=== PATIENT | female | born 2000 | race Caucasian/White ===

== ENCOUNTER 2024-03-12 18:05 | Emergency (ER) | payer OTHER ==
[2024-03-12 18:51] LABS: Specific Gravity 1.024 (1.005-1.030)
[2024-03-12 18:52] LABS: Specific Gravity 1.024 (1.005-1.030); Sqamous Epithelial <5 /HPF (None Seen); Urine Bacteria <20 /HPF (<20); Urine Bilirubin NEGATIVE (Negative); Urine Blood 3+ (Negative); Urine Clarity Extremely Turbid (Clear); Urine Color Dark-Yellow (Yellow); Urine Crystals Unidentified Few /HPF (None Seen); Urine Culture Reflex Order REFLEXED; Urine Glucose NEGATIVE (Negative); Urine Ketones NEGATIVE (Negative); Urine Microscopic Reflex YN ORDER UMIC; Urine Mucus Slight /HPF (None Seen); Urine Nitrite NEGATIVE (Negative); Urine Protein TRACE (Negative); Urine RBC 21-50 /HPF (None Seen); Urine Urobilinogen Normal (Normal); Urine WBC >50 /HPF (<5); Urine WBC Clump Rare /HPF (None Seen); Urine Yeast (Budding) Trace /HPF (None Seen)
--- NOTE | 2024-03-12 20:05 | ER ---
Nurse's Notes [facility] Name: Don Tolentino Age: 23 yrs Sex: Female : 2000 Arrival Date: 03/12/2024 Time: 18:05 Bed DX3 Private MD: Diagnosis: UTI/ Urinary tract infection, site not specified Presentation: 03/12 18:26 Chief complaint: Patient states: BURNING WITH URINATION AND URINARY FREQUENCY ONSET cm10 YESTERDAY. Coronavirus screen: Client denies travel out of the [place] in the last 14 days. Ebola Screen: Patient denies travel to an Ebola-affected area in the 21 days before illness onset. No symptoms or risks identified at this time. Initial Sepsis Screen: Does the patient meet any 2 criteria? No. Patient's initial sepsis screen is negative. Does the patient have a suspected source of infection? No. Patient's initial sepsis screen is negative. Risk Assessment: Do you want to hurt yourself or someone else? Patient reports no desire to harm self or others. Onset of symptoms was March 12, 2024. 18:26 Method Of Arrival: Ambulatory cm10 18:26 Acuity: MALGORZATA 3 cm10 Triage Assessment: 18:27 General: Appears in no apparent distress. uncomfortable, Behavior is calm, cooperative. cm10 Neuro: No deficits noted. Level of Consciousness is awake, alert, obeys commands, Oriented to person, place, time, situation, Appropriate for age. Respiratory: No deficits noted. Airway is patent Respiratory effort is even, unlabored, Respiratory pattern is regular, symmetrical. Historical: - Allergies: 18:27 Tramadol HCl; cm10 - Home Meds: 18:27 None [Active]; cm10 - PMHx: 18:27 None; cm10 - Immunization history:: Adult Immunizations up to date. - Infectious Disease History:: Denies. - Social history:: Smoking status: Reported history of juuling and/or vaping. Screenin:20 [facility] ED Fall Risk Assessment (Adult) History of falling in the last 3 months, ha1 including since admission No falls in past 3 months (0 pts) Confusion or Disorientation No (0 pts) Intoxicated or Sedated No (0 pts) Impaired Gait No (0 pts) Mobility Assist Device Used No (0 pt) Altered Elimination No (0 pt) Score/Fall Risk Level 0 - 2 = Low Risk Oriented to surroundings, Maintained a safe environment, Educated pt \T\ family on fall prevention, incl call for assistance when getting out of bed, Hourly rounding (assess needs \T\ fall precautionary measures) done. Abuse screen: Denies threats or abuse. Denies injuries from another. Nutritional screening: No deficits noted. Tuberculosis screening: No symptoms or risk factors identified. Assessment: 20:20 Reassessment: Patient and/or family updated on plan of care and expected duration. Pain ha1 level reassessed. Patient is alert, oriented x 3, equal unlabored respirations, skin warm/dry/pink. Vital Signs: 18:26 BP 117 / 83; Pulse 75; Resp 16; Temp 97.6; Pulse Ox 100% on R/A; Weight 114.31 kg; cm10 Height 5 ft. 5 in. ; Pain 10/10; 18:26 Body Mass Index 41.93 (114.31 kg, 165.1 cm) cm10 18:26 Pain Scale: Adult cm10 ED Course: 18:09 Patient arrived in ED. mr 18:26 Deysi Young, [facility] kb 18:26 Estevan Casey MD is Attending Physician. kb 18:27 Triage completed. cm10 18:27 Arm band placed on left wrist. Patient placed in waiting room. cm10 19:50 Patient has correct armband on for positive identification. Bed in low position. Call ha1 light in reach. Side rails up X 1. 20:20 No provider procedures requiring assistance completed. Patient did not have IV access ha1 during this emergency room visit. 20:21 Provided Education on: medication administration . ha1 Administered Medications: 19:50 Drug: Amoxicillin-Clavulanate PO 875 mg PO once Route: PO; ha1 20:19 Follow up: Response: No adverse reaction ha1 20:05 Drug: Ketorolac IM 30 mg IM once Route: IM; Site: left deltoid; ha1 20:20 Follow up: Response: No adverse reaction; Marked relief of symptoms ha1 Medication: 20:21 VIS not applicable for this client. ha1 Outcome: 20:05 Discharge ordered by . kb 20:20 Discharged to home ambulatory, ha1 20:20 Condition: stable 20:20 Discharge instructions given to patient, Instructed on discharge instructions, follow up and referral plans. medication usage, Demonstrated understanding of instructions, follow-up care, medications, Prescriptions given X 1, 20:21 Patient left the ED. ha1 Addendum: 03/15/2024 11:04 Addendum: Culture Results: Positive urine culture. No further action required. Bacteria i w sensitive to prescribed antibiotic. Signatures: Deysi Young, CUSTOMER SERVICE SUPERVISOR-C CUSTOMER SERVICE SUPERVISOR-Ckb Brandy Gupta, Reg Reg mr Ely Ortega, RN CELIA Rosa Isela Ferguson RN RN ha1 Aye Max RN RN cm10
--- NOTE | 2024-03-12 20:05 | EDPHYS ---
Physician Documentation [facility] Name: Don Tolentino Age: 23 yrs Sex: Female : 2000 Arrival Date: 03/12/2024 Time: 18:05 Bed DX3 Private MD: ED Physician Estevan Casey HPI: 03/12 18:42 This 23 yrs old Female presents to ER via Ambulatory with complaints of Urinary Problem.kb 18:42 Pt is a 23 year old female who presents for dysuria, urinary frequency, and suprapubic kb pain that started last night. STates she has had several UTIs in the past and this feels similar. Denies fever. . Historical: - Allergies: 18:27 Tramadol HCl; cm10 - Home Meds: 18:27 None [Active]; cm10 - PMHx: 18:27 None; cm10 - Immunization history:: Adult Immunizations up to date. - Infectious Disease History:: Denies. - Social history:: Smoking status: Reported history of juuling and/or vaping. ROS: 18:43 Constitutional: As per HPI kb Exam: 20:04 Constitutional: This is a well developed, well nourished patient who is awake, alert, kb and in no acute distress. Head/Face: Normocephalic, atraumatic. ENT: Moist Mucous membranes Cardiovascular: Regular rate Respiratory: Respirations even and unlabored. No increased work of breathing. Talking in full sentences Skin: Warm, dry with normal turgor. Normal color. MS/ Extremity: Pulses equal, no cyanosis. Neurovascular intact. Full, normal range of motion. Neuro: Awake and alert, GCS 15, oriented to person, place, time, and situation. 20:04 Abdomen/GI: Inspection: abdomen appears normal, Bowel sounds: normal, Palpation: soft, in all quadrants, mild abdominal tenderness, in the suprapubic area, Vital Signs: 18:26 BP 117 / 83; Pulse 75; Resp 16; Temp 97.6; Pulse Ox 100% on R/A; Weight 114.31 kg; cm10 Height 5 ft. 5 in. ; Pain 10/10; 18:26 Body Mass Index 41.93 (114.31 kg, 165.1 cm) cm10 18:26 Pain Scale: Adult cm10 MDM: 18:26 Medical Screening Exam initiated kb 18:43 Data reviewed: vital signs, nurses notes. kb 20:04 Differential diagnosis: UTI, pyelonephritis. Counseling: I had a detailed discussion kb with the patient and/or guardian regarding the historical points, exam findings, and any diagnostic results supporting the discharge/admit diagnosis, lab results, the need for outpatient follow up, a family practitioner, to return to the emergency department if symptoms worsen or persist or if there are any questions or concerns that arise at home. 03/12 18:37 Order name: Urinalysis w/ reflexes; Complete Time: 18:56 cm10 03/12 18:37 Order name: Test, Urine; Complete Time: 18:56 cm10 03/12 18:55 Order name: Urine Culture EDAZ Administered Medications: 19:50 Drug: Amoxicillin-Clavulanate PO 875 mg PO once Route: PO; ha1 20:19 Follow up: Response: No adverse reaction ha1 20:05 Drug: Ketorolac IM 30 mg IM once Route: IM; Site: left deltoid; ha1 20:20 Follow up: Response: No adverse reaction; Marked relief of symptoms ha1 Disposition Summary: 03/12/24 20:05 Discharge Ordered Notes: Location: Home kb Condition: Stable kb Diagnosis - UTI/ Urinary tract infection, site not specified kb Followup: kb - With: Emergency Department - When: As needed - Reason: Worsening of condition Followup: kb - With: Private Physician - When: 2 - 3 days - Reason: Recheck today's complaints, Continuance of care, Re-evaluation by your physician Discharge Instructions: - Discharge Summary Sheet kb - Urinary Tract Infection, Adult, [id number] kb Forms: - Medication Reconciliation Form kb - Antibiotic Education kb - Prescription Opioid Use kb - Patient Portal Instructions kb - Leadership Thank You Letter kb Prescriptions: - Augmentin 875-125 mg Oral Tablet - take 1 tablet ORAL route every 12 hours for 10 days; 20 tablet; Refills: 0, kb Product Selection Permitted Signatures: Dispatcher [employer] Deysi Miranda FNP-C FNP-Ckb Ayala, Heidy, RN RN ha1 Aye Max RN RN cm10
[2024-03-12] MEDS ORDERED: KETOROLAC 30 MG/ML INJ ONE (20:12)
[2024-03-12] MEDS ORDERED: AMOX/K CLAV 875 MG TAB ONE (20:12)
[2024-03-12 21:02] VITALS: BP 117/83; TEMP 97.6; O2SAT 100
== END 2024-03-12 20:21 | disposition home or self-care (01) ==
LOC: ER 18:05
DX: N39.0 Urinary tract infection, site not specified (principal)
CPT/HCPCS: 81001; 81025; 87077; 87086; 87088; 87186; 96372; 99284

== ENCOUNTER 2025-01-16 16:49 | Emergency (ER) | payer OTHER ==
--- OUTSIDE RECORDS SUMMARY | 2025-01-16 16:54 | XMS REPORT | Continuity of Care Document ---
Author Name Unknown Address [address] [place] [address] [facility] [place] Address [address] [place] [address] Care Team Providers Care Psychologist Chief Name Role Phone No, Pcp [facility] Primary Care Physician Unavailab JOSELINE Silva Attending Clinician Unavailable ANAM CONTRERAS Attending Clinician Jer Nye Attending Clinician Unavailable Jesi NEWTON, Dania Attending Clinician [phone] Physician, No Primary or Family Admitting Clinic jessica Unavailable Payers Payer Name Policy Type Policy Number Effective Date Expirati on Date Source [facility] [employer] FOCUS 9 [id number] 2024 00:00:00 Problems Condition Name Condition Details Condition Category Status Onset Date Resolution Date Last Treatment Date Treating Clinician Comments Source Depression , unspecifie d depression type Depression , unspecifie d depression type Disease Active 07-15 00:00: 00 [facility] Allergies, Adverse Reactions, Alerts Allergy Name Allergy Type Status Severity Reaction(s) Onset Date Inactive Date Treating Clinician Comments Source No Known Allergie s DA Active U 07-29 00:00: 00 [facility] No Known Allergie s DA Active U 07-29 00:00: 00 [facility] No Known Allergie s DA Active U 2019-03 00:00: 00 [facility] No Known Allergie s DA Active U 2019-03 00:00: 00 [facility] No Known Allergie s DA Active U 2019-03 0 00:00: 00 [facility] No Known Allergie s DA Active U 2019-03 0 00:00: 00 [facility] No Known Allergie s DA Active U 12-09 00:00: 00 [facility] No Known Allergie s DA Active U 0 12-09 00:00: 00 [facility] No Known Allergie s DA Active U 10-01 00:00: 00 [facility] No Known Allergie s DA Active U 10-01 00:00: 00 [facility] No Known Allergie s DA Active U 2018-03 00:00: 00 [facility] No Known Allergie s DA Active U 2018-03 00:00: 00 [facility] NO KNOWN ALLERGIE S Allergy Active [facility] Social History Social Habit Start Date Stop Date Quantity Comments Source ASSERTION Possible [facility] Sexual orientation [facility] Alcohol intake Unive [facility] Sex 2024-11-07 01:07:16 2024-11-07 01:07:16 Female (finding) [facility] Tobacco use and exposure 2020-03-17 00:00:00 2020-03-17 00:00:00 Never used [facility] Sex assigned at 2000 00:00:00 2000 00:00:00 [facility] Smoking Status Start Date Stop Date Source Never smoker [facility] Medications Ordered Medication Name Filled Medication Name Start Date Stop Date Current Medication? Ordering Clinician Indication Dosage Frequency Signature (SIG) Comments Components Source FEXOFENADIN E 180 mg tablet 10-24 00:00: 00 11-24 04:59 :00 No [id number] 180mg TAKE 1 TABLET BY MOUTH EVERY MORNING FOR 30 DAYS. [facility] escitalopra m oxalate 10 mg tablet 10-03 00:00: 00 Yes [id number] 10mg Take 1 tablet by mouth daily. [facility] fexofenadin e 180 mg tablet 11-16 00:00: 00 10-24 00:00 :00 No TAKE 1 TABLET BY MOUTH EVERY MORNING FOR 30 DAYS. [facility] Vital Signs Vital Name Observation Time Observation Value Comments S ource HEIGHT 2020-03-17 05:00:00 165.1 cm WEIGHT 2020-03-17 05:00:00 113.399 kg HEIGHT 2020-03-14 23:30:00 165.1 cm WEIGHT 2020-03-14 23:30:00 102.059 kg HEIGHT 2020-03-14 23:30:00 165.1 cm WEIGHT 2020-03-14 23:30:00 102.059 kg Plan of Care Planned Activity Planned Date Details Comments Source Future Scheduled Test 2022-03-29 00:00:00 DEPRESSION SCREENING (12+) [code = DEPRESSION SCREENING (12+)] [facility] Future Scheduled Test 2022 00:00:00 Screening for malignant neoplasm of cervix (procedure) [code = 385587157] [facility] Future Scheduled Test 2021-11-27 00:00:00 INFLUENZA VACCINE (#1) [code = INFLUENZA VACCINE (#1)] [facility] Future Scheduled Test 2021 00:00:00 Lipid panel (procedure) [code = 49919455] [facility] Future Scheduled Test 2021-03-17 00:00:00 Tobacco Cessation Counseling and Screening (12+) [code = Tobacco Cessation Counseling and Screening (12+)] [facility] Future Scheduled Test 2020-11-27 00:00:00 INFLUENZA VACCINE (#1) [code = INFLUENZA VACCINE (#1)] [facility] Future Scheduled Test 2020-11-27 00:00:00 INFLUENZA VACCINE (#1) [code = INFLUENZA VACCINE (#1)] [facility] Future Scheduled Test 2020-03-29 00:00:00 DEPRESSION SCREENING (12+) [code = DEPRESSION SCREENING (12+)] [facility] Future Scheduled Test 2020-03-29 00:00:00 DEPRESSION SCREENING (12+) [code = DEPRESSION SCREENING (12+)] [facility] Future Scheduled Test 2020 00:00:00 DTAP/TDAP/TD VACCINES (1 - Tdap) [code = DTAP/TDAP/TD VACCINES (1 - Tdap)] [facility] Future Scheduled Test 2020 00:00:00 DTAP/TDAP/TD VACCINES (1 - Tdap) [code = DTAP/TDAP/TD VACCINES (1 - Tdap)] [facility] Future Scheduled Test 2020 00:00:00 DTAP/TDAP/TD VACCINES (1 - Tdap) [code = DTAP/TDAP/TD VACCINES (1 - Tdap)] [facility] Future Scheduled Test 2019 00:00:00 HEPATITIS C SCREENING [code = HEPATITIS C SCREENING] [facility] Future Scheduled Test 2019 00:00:00 HEPATITIS C SCREENING [code = HEPATITIS C SCREENING] [facility] Future Scheduled Test 2019 00:00:00 HEPATITIS C SCREENING [code = HEPATITIS C SCREENING] [facility] Future Scheduled Test 2013 00:00:00 COVID-19 VACCINE (1) [code = COVID-19 VACCINE (1)] [facility] Future Scheduled Test 2013 00:00:00 COVID-19 VACCINE (1) [code = COVID-19 VACCINE (1)] [facility] Future Scheduled Test 2001 00:00:00 COVID-19 VACCINE (#1) [code = COVID-19 VACCINE (#1)] [facility] Encounters Start Date/Time End Date/Time Encounter Type Admission Type Attending [facility] Care Department Encounter ID Source 2024-09-22 11:00:00 2024-09-22 11:00:00 Outpatient JUNIOR KIRKPATRICKY EDNA PENA [id number] Edna Durbin 2020-07-29 23:29:41 2020-07-29 23:29:41 Inpatient [facility] [id number] [facility] 2020-03-17 04:36:00 2020-03-17 04:36:00 Emergency ER [facility] Emergency [id number] [facility] 2020-03-14 10:33:00 2020-03-16 22:10:37 Inpatient [facility] OVIDIO [id number] [facility] 2020-03-14 22:53:00 2020-03-14 22:53:00 Emergency ER [facility] [address] Emergency [id number] [facility] 2020-02-16 18:40:00 2020-02-20 04:27:28 Inpatient [facility] OVIDIO [id number] [facility] 2020-02-02 14:30:00 2020-02-05 00:03:03 Inpatient [facility] OV[facility]IO [id number] [facility] 2019-12-30 19:52:00 2020-01-04 13:50:53 Inpatient [facility] OVIDIO [id number] [facility] 2019-12-10 15:00:00 2019-12-13 01:26:37 Inpatient [facility] OV[facility]IO [id number] [facility] 2019-10-21 11:52:00 2019-10-23 04:47:26 Inpatient [facility] OV[facility]IO [id number] [facility] 2019-10-02 19:52:00 2019-10-05 07:23:00 Inpatient [facility] OV[facility]IO [id number] [facility] 2019-09-24 18:08:00 2019-09-26 05:43:57 Inpatient [facility] OVIDIO [id number] [facility] 2019-04-05 13:43:00 2019-04-07 01:51:43 Inpatient [facility] OV[facility]IO [id number] [facility] 2019-04-06 11:00:00 2019-04-06 11:00:[address] [facility] [id number] [facility] 2018-11-15 00:00:00 2018-11-15 00:00:00 Telephone [facility] [id number] 225 [id number] 2018-11-15 00:00:00 2018-11-15 00:00:00 Telephone [facility] [id number] 225 [id number] [facility] 2018-11-01 00:00:00 2018-11-01 00:00[facility] [id number] 225 [id number] 2018-11-01 00:00:00 2018-11-01 00:00:00 [facility] [facility] [id number] 225 [id number] [facility] 2018-10-22 00:00:00 2018-10-22 00:00:00 [facility] [id number] 225 [id number] 2018-10-22 00:00:00 2018-10-22 00:00:00 [facility] [id number] 225 [id number] [facility] 2018-10-19 00:00:00 2018-10-19 00:00:00 Telephone [facility] [id number] 225 [id number] 2018-10-19 00:00:00 2018-10-19 00:00:00 Telephone [facility] [id number] 225 [id number] [facility] Results Test Description Test Time Test Comments Results Result Co mments Source UR HCG [id number] 00:53:00* Test Item Value Reference Range Interpretation Comme nts UR HCG QUAL (test code = HCGQLU) NEGATIVE NEG Very dilute urin es with a low specific gravity may notcontain apprenticeship training representative levels of hCG. URINALYSIS [id number] 00:46:00* Test Item Value Reference Range Interpretation Comme nts UA COLOR (test code = COLU) DESCRIPT YELLOW UA APPEARANCE (test code = APPU) DESCRIPT CLEAR UA GLUCOSE DIPSTICK (test code = DGLUU) mg/dL See_Comment [Automated m essage] The system which generated this result transmitted reference range: 0 (NORMAL). The reference range was not used to interpret this result as normal/abnormal. UA BILIRUBIN DIPSTICK (test code = BILU) mg/dL See_Comment [Automated me ssage] The system which generated this result transmitted reference range: (NEG) 0. The reference range was not used to interpret this result as normal/abnormal. UA KETONE DIPSTICK (test code = KETU) mg/dL See_Comment [Automated messa ge] The system which generated this result transmitted reference range: (NEG) 0. The reference range was not used to interpret this result as normal/abnormal. UA SPECIFIC GRAVITY (test code = SGU) SG 1.001-1.035 UA BLOOD DIPSTICK (test code = HORTENSIA) mg/dL See_Comment [Automated [employer]] The system which generated this result transmitted reference range: 0 (NEG). The reference range was not used to interpret this result as normal/abnormal. UA PH DIPSTICK (test code = GEM) pH UNITS 4.6-8.0 UA PROTEIN DIPSTICK (test code = PROU) mg/dL See_Comment [Automated [employer]] The system which generated this result transmitted reference range: <30 (1+). The reference range was not used to interpret this result as normal/abnormal. UA UROBILINIOGEN DIPSTICK (test code = URO) mg/Dl See_Comment [Automated [employer]] The system which generated this result transmitted reference range: <2.0 (1+). The reference range was not used to interpret this result as normal/abnormal. UA NITRITE DIPSTICK (test code = ELA) SCREEN NEG UA LEUKOCYTE ESTERASE DIPSTICK (test code = LEUU) Leuk/mcL See_Comment [Automated [employer]] The system which generated this result transmitted reference range: (NEG) 0. The reference range was not used to interpret this result as normal/abnormal. UA RBC (test code = RBCU) #RBC/HPF 0-3 UR HCG [id number] 00:46:00* Test Item Value Reference Range Interpretation Comme nts UR HCG QUAL (test code = HCGQLU) NEGATIVE NEG Very dilute urin es with a low specific gravity may notcontain apprenticeship training representative levels of hCG. URINALYSIS W/ [id number] 01:54:00* Test Item Value Reference Range Interpretation Comme nts COLOR (BEAKER) (test code = 470) Yellow CLARITY (BEAKER) (test code = 469) Clear SPECIFIC GRAVITY UA (BEAKER) (test code = 468) 1.016 1.001-1.035 PH UA (BEAKER) (test code = 467) 7.0 5.0-8.0 PROTEIN UA (BEAKER) (test co de = 464) Negative Negative GLUCOSE UA (BEAKER) (test co de = 365) Negative Negative KETONES UA (BEAKER) (test co de = 371) Negative Negative BILIRUBIN UA (BEAKER) (test code = 462) Negative Negative BLOOD UA (BEAKER) (test code = 461) Negative Negative NITRITE UA (BEAKER) (test co de = 465) Negative Negative LEUKOCYTE ESTERASE UA (BEAKE R) (test code = 466) Negative Negative UROBILINOGEN UA (BEAKER) (te st code = 463) < mg/dL 0.2-1.0 RBC UA (BEAKER) (test code = 519) 1 /HPF WBC UA (BEAKER) (test code = 520) 2 /HPF MUCUS (BEAKER) (test code = 1574) Rare SQUAMOUS EPITHELIAL (BEAKER) (test code = 516) 1 /HPF SOURCE(BEAKER) (test code = 2795) [employer] Worker ID - [auto][employer] Worker ID - [auto]SARS-COV2/INFLUENZA/RSV [id number] 01:38:00* Test Item Value Reference Range Interpretation Comme nts SARS-COV2/RT-PCR (test code = 4498323) Positive Negative AA INFLUENZA A RT-PCR (test code = 9017429) Negative Negative INFLUENZA B RT-PCR (test code = 5413369) Negative Negative RSV RT-PCR (test code = 5879430) Negative Negative Performance of t [employer] Xpert Xpress SARS-CoV-2/Flu/RSV test has only been established in nasopharyngeal swab specimens. Use of the Xpert Xpress SARS-CoV-2/Flu/RSV test with other specimen types has not been assessed and performance characteristics are unknown. As with any molecular test, mutations within the targeted genetic regions identified by the Xpert Xpress SARS-CoV-2/Flu/RSV test could affect primer and/or probe binding resulting in failure to detect the presence of virus or the virus being detected less predictably.Negative results do not preclude SARS-CoV-2, Influenza A/B, or RSV infection and should not be used as the sole basis for treatment or other patient management decisions. Results from the Xpert Xpress SARS-CoV-2/Flu/RSV test should be correlated with the clinical history, epidemiological data, and other data available to the clinician evaluating the patient. Invalid test results may occur from improper specimen collection; failure to follow the recommended sample collection, handling, and storage procedures; technical error. False negative results may occur if virus is present at levels below the analytical limit of detection (LOD: 131 copies/mL). Viral nucleic acid may persist in vivo, independent of virus viability. Detection of analyte target(s) does not imply that the corresponding virus(es) are infectious or are the causative agents for clinical symptoms. Recent patient exposure to FluMist or other live attenuated influenza vaccines may cause inaccurate positive results.This test has been authorized by FDA under an EUA for use by authorized laboratories. This test is only authorized for the duration of the declaration that circumstances exist justifying the authorization of emergency use of in vitro diagnostic tests for detection and/or diagnosis of COVID-19 under Section 564(b)(1) of the Federal Food, Drug and Cosmetic Act, 21 U.S.C. 360bbb-3(b)(1), unless the authorization is terminated or revoked sooner.Fact Sheet for Healthcare Providers: https://www.[employer]/D InMage Systemsuments/Xpert%20Xpress%2 6IILP-DfF-8-Flu-RSV/302-4 508%20Rev.%20B%20HCP%20Fa ct%20Sheet.pdfFact Sheet for Healthcare Patients: https://www.[employer]/D ocuments/Xpert%20Xpress%2 4NATR-XcJ-8-Flu-RSV/302-4 507%20Rev.%20B%20Patient% 20Fact%20Sheet.pdf MONONUCLEOSIS [id number] 01:35:00* Test Item Value Reference Range Interpretation Comme nts HETEROPHILE ANTIBODIES (BEAK ER) (test code = 621) Negative Negative COMPREHENSIVE METABOLIC [id number] 01:33:00* Test Item Value Reference Range Interpretation Comme nts TOTAL PROTEIN (BEAKER) (test code = 770) 7.7 gm/dL 6.0-8.5 ALBUMIN (BEAKER) (test code = 1145) 4.6 g/dL 3.5-5.0 ALKALINE PHOSPHATASE (BEAKER) (test code = 346) 65 U/L 30-115 BILIRUBIN TOTAL (BEAKER) (test code = 377) 0.4 mg/dL 0.1-1.3 SODIUM (BEAKER) (test code = 381) 138 meq/L 135-148 POTASSIUM (BEAKER) (test code = 379) 3.7 meq/L 3.5-5.5 CHLORIDE (BEAKER) (test code = 382) 104 meq/L 98-106 CO2 (BEAKER) (test code = 355) 23 meq/L 20-31 BLOOD UREA NITROGEN (BEAKER) (test code = 354) 10 mg/dL 10-26 CREATININE (BEAKER) (test code = 358) 0.83 mg/dL 0.50-1.20 GLUCOSE RANDOM (BEAKER) (test code = 652) 97 mg/dL 70-110 CALCIUM (BEAKER) (test code = 697) 9.0 mg/dL 8.5-10.5 AST (SGOT) (BEAKER) (test code = 353) 20 U/L 5-40 ALT (SGPT) (BEAKER) (test code = 347) 29 U/L 6-50 EGFR (BEAKER) (test code = 1092) INSUFFICIENT CLI NICAL DATA TO CALCULATE ESTIMATED GFR. [employer] Worker ID - [id number] ACID, [id number] 01:08:00* Test Item Value Reference Range Interpretation Comme nts LACTATE BLOOD VENOUS (2) (BE VINEET) (test code = 2872) 0.76 mmol/L 0.50-2.20 [employer] Worker ID - [id number] W/PLT COUNT & AUTO [id number] 00:59:00* Test Item Value Reference Range Interpretation Comme nts WHITE BLOOD CELL COUNT (BEAK ER) (test code = 775) 9.6 K/ L 4.0-10.0 RED BLOOD CELL COUNT (BEAKER ) (test code = 761) 4.25 M/ L 4.00-5.00 HEMOGLOBIN (BEAKER) (test co de = 410) 12.6 GM/DL 12.0-15.5 HEMATOCRIT (BEAKER) (test co de = 411) 36.3 % 36.0-46.0 MEAN CORPUSCULAR VOLUME (SOMMER KER) (test code = 753) 85.4 fL 82.0-99.0 MEAN CORPUSCULAR HEMOGLOBIN (BEAKER) (test code = 751) 29.6 pg 27.0-33.0 MEAN CORPUSCULAR HEMOGLOBIN CONC (BEAKER) (test code = 752) 34.7 GM/DL 32.0-36.0 RED CELL DISTRIBUTION WIDTH (BEAKER) (test code = 412) 12.6 % 12.0-15.0 PLATELET COUNT (BEAKER) (autumn t code = 756) 250 K/CU MM 150-430 MEAN PLATELET VOLUME (BEAKER ) (test code = 754) 10.7 fL 6.0-11.5 NUCLEATED RED BLOOD CELLS (BEAKER) (test code = 413) 0 /100 WBC 0-0 NEUTROPHILS RELATIVE PERCENT (BEAKER) (test code = 429) 81 % LYMPHOCYTES RELATIVE PERCENT (BEAKER) (test code = 430) 11 % MONOCYTES RELATIVE PERCENT (BEAKER) (test code = 431) 7 % EOSINOPHILS RELATIVE PERCENT (BEAKER) (test code = 432) 0 % BASOPHILS RELATIVE PERCENT (BEAKER) (test code = 437) 0 % NEUTROPHILS ABSOLUTE COUNT (BEAKER) (test code = 670) 7.78 K/ L 1.80-8.00 LYMPHOCYTES ABSOLUTE COUNT (BEAKER) (test code = 414) 1.06 K/ L 1.48-4.50 L MONOCYTES ABSOLUTE COUNT (BE VINEET) (test code = 415) 0.69 K/ L 0.00-1.30 EOSINOPHILS ABSOLUTE COUNT (BEAKER) (test code = 416) 0.01 K/ L 0.00-0.50 BASOPHILS ABSOLUTE COUNT (BE VINEET) (test code = 417) 0.03 K/ L 0.00-0.20 IMMATURE GRANULOCYTES-RELATI VE PERCENT (BEAKER) (test code = 2801) 0 % 0-0 URINALYSIS [id number] 12:02:00* Test Item Value Reference Range Interpretation Comme nts UA COLOR (test code = COLU) YELLOW DESCRIPT YELLOW UA APPEARANCE (test code = APPU) TURBID (1+)HAZY-CLDY DESCRIPT CLEAR A UA GLUCOSE DIPSTICK (test code = DGLUU) NORMAL (0) mg/dL 0 (NORMAL) UA BILIRUBIN DIPSTICK (test code = BILU) NEGATIVE (0.0) mg/dL (NEG) 0 UA KETONE DIPSTICK (test code = KETU) NEGATIVE (0) mg/dL (NEG) 0 UA SPECIFIC GRAVITY (test code = SGU) 1.037 SG 1.001-1.035 A UA BLOOD DIPSTICK (test code = HORTENSIA) NEGATIVE (0.00) mg/dL 0 (NEG) UA PH DIPSTICK (test code = GEM) 6.0 pH UNITS 4.6-8.0 UA PROTEIN DIPSTICK (test code = PROU) 30 (1+) mg/dL <30 (1+) A UA UROBILINIOGEN DIPSTICK (test code = URO) NORMAL (0) mg/Dl <2.0 (1+) UA NITRITE DIPSTICK (test code = ELA) NEGATIVE (0) SCREEN NEG UA LEUKOCYTE ESTERASE DIPSTICK (test code = LEUU) 25 Leuk/mcL (NEG) 0 A UA WBC (test code = WBCU) 3-5 #WBC/HPF 0-3 UA RBC (test code = RBCU) 0-3 #RBC/HPF 0-3 UA BACTERIA (test code = BACU) TRACE >0 /HPF NONE-FEW UA SQUAMOUS CELLS (test code = SQU) FEW >2 /UL NONE-SQepi UA MUCUS (test code = MUCU) FEW /LPF NONE A UA AMORPHOUS SEDIMENT (test code = AMORU) MODERATE #/mcL NONE-FEW UR HCG [id number] 12:02:00* Test Item Value Reference Range Interpretation Comme nts UR HCG QUAL (test code = HCGQLU) NEGATIVE NEG Very dilute urin es with a low specific gravity may notcontain apprenticeship training representative levels of hCG. URINALYSIS [id number] 12:00:00* Test Item Value Reference Range Interpretation Comme nts UA COLOR (test code = COLU) DESCRIPT YELLOW UA APPEARANCE (test code = APPU) DESCRIPT CLEAR UA GLUCOSE DIPSTICK (test co de = DGLUU) mg/dL 0 (NORMAL) UA BILIRUBIN DIPSTICK (test code = BILU) mg/dL (NEG) 0 UA KETONE DIPSTICK (test cod e = KETU) mg/dL (NEG) 0 UA SPECIFIC GRAVITY (test co de = SGU) SG 1.001-1.035 UA BLOOD DIPSTICK (test code = HORTENSIA) mg/dL 0 (NEG) UA PH DIPSTICK (test code = GEM) pH UNITS 4.6-8.0 UA PROTEIN DIPSTICK (test co de = PROU) mg/dL <30 (1+) UA UROBILINIOGEN DIPSTICK (t est code = URO) mg/Dl <2.0 (1+) UA NITRITE DIPSTICK (test co de = ELA) SCREEN NEG UA LEUKOCYTE ESTERASE DIPSTI CK (test code = LEUU) Leuk/mcL (NEG) 0 UA RBC (test code = RBCU) #RBC/HPF 0-3 UR HCG [id number] 12:00:00* Test Item Value Reference Range Interpretation Comme nts UR HCG QUAL (test code = HCGQLU) NEGATIVE NEG Very dilute urin es with a low specific gravity may notcontain apprenticeship training representative levels of hCG. EMERGENCY ROOM [id number] 11:51:00* Test Item Value Reference Range Interpretation Comme nts DIAGNOSIS (test code = DIAG) SPECIMENS RCVED SPECIMEN RECEIVED EMERGENCY ROOM [id number] 11:50:00* Test Item Value Reference Range Interpretation Comme nts DIAGNOSIS (test code = DIAG) SPECIMENS RCVED SPECIMEN RECEIVED AG STREP GROUP A (THROAT)2020-03-14 11:39:00* Test Item Value Reference Range Interpretation Comme nts AG STREP GROUP A (THROAT) (test code = STREPA) NEG SCREEN NEG STREP ANTIGEN SCREENING:Antigen screening test; suggest confirmation by culture.INTERPRETATION OF STREP ANTIGEN RESULTS:WHEN STREP GROUP A ANTIGEN IS NOT DETECTED, THE NEGATIVERESULT DOES NOT RULE OUT THE PRESENCE OF STREP GROUP A.WHEN STREP GROUP A ANTIGEN IS DETECTED, THE POSITIVE RESULTIS SIGNIFICANT. NEGATIVE RESULTS REFLEX A CULTURE. FORNEGATIVE RESULTS A CULTURE IS IN PROGRESS, RESULT TO FOLLOW. Novel Coronavirus 2019 [id number] 02:07:00* Test Item Value Reference Range Interpretation Comme nts Novel Coronavirus 2019 nCoV (test code = COVID19) Not Detected Not Detected Testing was perf ormed using the Aptima SARS-CoV-2 assay.This nucleic acid amplification test was developed and itsperformance characteristics determined by [facility]. Nucleic acid amplification tests include PCRand TMA. This test has not been FDA cleared or approved.This test has been authorized by FDA under an Emergency UseAuthorization (EUA). This test is only authorized forthe duration of time the declaration that circumstancesexist justifying the authorization of the emergency use ofin vitro diagnostic tests for detection of SARS-CoV-2 virusand/or diagnosis of COVID-19 infection under gfobept988(b)(1) of the Act, 21 U.S.C. 360bbb-3(b) (1), unless theauthorization is terminated or revoked sooner.When diagnostic testing is negative, the possibility of afalse negative result should be considered in the contextof a patient's recent exposures and the presence ofclinical signs and symptoms consistent with COVID-19. Anindividual without symptoms of COVID-19 and who is notshedding SARS-CoV-2 virus would expect to have a negative(not detected) result in this assay.Performed At: [facility] [place], [place] [id number] Jam Shine MD Ph:[phone] URINALYSIS [id number] 16:51:00* Test Item Value Reference Range Interpretation Comme nts UA COLOR (test code = COLU) YELLOW DESCRIPT YELLOW UA APPEARANCE (test code = APPU) CLEAR DESCRIPT CLEAR UA GLUCOSE DIPSTICK (test code = DGLUU) NORMAL (0) mg/dL 0 (NORMAL) UA BILIRUBIN DIPSTICK (test code = BILU) NEGATIVE (0.0) mg/dL (NEG) 0 UA KETONE DIPSTICK (test code = KETU) TRACE mg/dL (NEG) 0 UA SPECIFIC GRAVITY (test code = SGU) 1.036 SG 1.001-1.035 A UA BLOOD DIPSTICK (test code = HORTENSIA) NEGATIVE (0.00) mg/dL 0 (NEG) UA PH DIPSTICK (test code = GEM) 6.5 pH UNITS 4.6-8.0 UA PROTEIN DIPSTICK (test code = PROU) 30 (1+) mg/dL <30 (1+) A UA UROBILINIOGEN DIPSTICK (test code = URO) NORMAL (0) mg/Dl <2.0 (1+) UA NITRITE DIPSTICK (test code = ELA) NEGATIVE (0) SCREEN NEG UA LEUKOCYTE ESTERASE DIPSTICK (test code = LEUU) 75 Leuk/mcL (NEG) 0 A UA WBC (test code = WBCU) 0-3 #WBC/HPF 0-3 UA RBC (test code = RBCU) 0-3 #RBC/HPF 0-3 UA SQUAMOUS CELLS (test code = SQU) FEW >2 /UL NONE-SQepi UA MUCUS (test code = MUCU) RARE /LPF NONE BASIC METABOLIC [id number] 16:19:00* Test Item Value Reference Range Interpretation Comme nts SODIUM (test code = NA) 138.0 mmol/L 133-144 N POTASSIUM (test code = K) 3.7 mmol/L 3.5-5.1 N CHLORIDE (test code = CL) 107 mmol/L 95-105 H CARBON DIOXIDE (test code = CO2) 27 mmol/L 21-32 N ANION GAP (test code = GAP) 4.0 GAP calc 4.0-15.0 N GLUCOSE (test code = GLU) 97 MG/DL 70-110 N BLOOD UREA NITROGEN (test code = BUN) 13 MG/DL 7-18 N CREATININE (test code = CREAT) 0.91 MG/DL 0.55-1.30 N Results may be depressed if patient is takingN-Acetylcyste ine (NAC) and Metamizole (Dipyrone). CALCIUM (test code = CA) 9.5 MG/DL 8.5-10.1 N INDEX HEMOLYSIS (test code = HEMINDEX) 1 NORMAL <10 MG Index/DL 1 NORMAL INDEX ICTERIC (test code = ICTINDEX) 1 NORMAL <2 MG Index/DL 1 NORMAL INDEX LIPEMIA (test code = LIPINDEX) 1 NORMAL <50 MG Index/DL 1 NORMAL HEPATIC FUNCTION [id number] 16:19:00* Test Item Value Reference Range Interpretation Comme nts TOTAL PROTEIN (test code = PROT) 7.6 G/DL 6.4-8.2 N ALBUMIN (test code = ALB) 3.9 G/DL 3.4-5.0 N BILIRUBIN TOTAL (test code = BILT) 0.39 MG/DL 0.00-1.00 N BILIRUBIN DIRECT (test code = BILD) 0.13 MG/DL 0.00-0.30 N BILIRUBIN INDIRECT (test cod e = BILIND) 0.26 MG/DL 0.2-1.3 N SGOT/AST (test code = AST) 26 Unit/L 15-37 N SGPT/ALT (test code = ALT) 43 Unit/L 12-78 N ALKALINE PHOSPHATASE TOTAL ( test code = ALKP) 64 Unit/L 45-117 N [id number] 16:19:00* Test Item Value Reference Range Interpretation Comme nts LIPASE (test code = LIP) 112 Unit/L 114-286 L HCG [id number] 16:19:00* Test Item Value Reference Range Interpretation Comme nts HCG SERUM (test code = HCG) <1 mi-IU/ML 0-3 N INTERPRET B-HCG LEVELS LESS THAN OR EQUAL TO 3 MIU/ML NEG [id number] 16:19:00* Test Item Value Reference Range Interpretation Comme nts TROPONIN-I (test code = TROPI) < 0.015 NG/ML 0.000-0.045 N INTERPRET WITH C AUTION, THIS VALUE EXCEEDS THE LOWER LIMITOF LINEARITY VERIFICATION ESTABLISHED BY THE LABORATORY.An elevated troponin value alone is not sufficient todiagnose a myocardial infarction. Rather, the patient'sclinical presentation (history, physical exam) and ECGshould be used in conjunction with troponin in thediagnostic evaluation of suspected myocardial infarction. Aserial sampling protocol is recommended to facilitate theidentification of temporal changes in troponin levelscharacteristic of [place]. PROTHROMBIN [id number] 16:16:00* Test Item Value Reference Range Interpretation Comme nts PT PATIENT (test code = PTP) 12.8 SECONDS 9.4-12.5 H INTERNATIONAL NORMAL RATIO (test code = INR) 1.12 INR Unit 0.88-1.13 N --- --Therapeutic range for INR is dependent upon the situation.2.0-3.0 Prophylaxis / venous thromboembolism, Treatment of DVT, Acute myocardial infarction stroke prevention, Systemic embolism prevention in fibrillation3.0-4.5 AMI recurrence prevention, Systemic embolism prevention in prosthetic heart 3.0-5.4 AMI mortality reduction THROMBOPLASTIN TIME [id number] 16:16:00* Test Item Value Reference Range Interpretation Comments THROMBOPLASTIN TIME PARTIAL (test code = PTT) 29.7 SECONDS 24-37.7 N THERAPEUTIC RANG E FOR UNFRACTIONATED HEPARIN = 50.5-83.6 SEC This test is not recommended to monitor low molecularweight heparin or danaparoid. Order LMWH test COLLECTION THROUGH LINES THAT HAVE BEEN PREVIOUSLY FLUSHEDWITH HEPARIN SHOULD BE AVOIDED DUE TO POSSIBLE HEPARINCONTAMINATION BASIC METABOLIC [id number] 16:14:00* Test Item Value Reference Range Interpretation Comme nts SODIUM (test code = NA) 138.0 mmol/L 133-144 N POTASSIUM (test code = K) 3.7 mmol/L 3.5-5.1 N CHLORIDE (test code = CL) 107 mmol/L 95-105 H CARBON DIOXIDE (test code = CO2) 27 mmol/L 21-32 N ANION GAP (test code = GAP) 4.0 GAP calc 4.0-15.0 N GLUCOSE (test code = GLU) 97 MG/DL 70-110 N BLOOD UREA NITROGEN (test code = BUN) 13 MG/DL 7-18 N CREATININE (test code = CREAT) 0.91 MG/DL 0.55-1.30 N Results may be depressed if patient is takingN-Acetylcyste ine (NAC) and Metamizole (Dipyrone). CALCIUM (test code = CA) 9.5 MG/DL 8.5-10.1 N INDEX HEMOLYSIS (test code = HEMINDEX) 1 NORMAL <10 MG Index/DL 1 NORMAL INDEX ICTERIC (test code = ICTINDEX) 1 NORMAL <2 MG Index/DL 1 NORMAL INDEX LIPEMIA (test code = LIPINDEX) 1 NORMAL <50 MG Index/DL 1 NORMAL HEPATIC FUNCTION [id number] 16:14:00* Test Item Value Reference Range Interpretation Comme nts TOTAL PROTEIN (test code = PROT) G/DL 6.4-8.2 ALBUMIN (test code = ALB) 3.9 G/DL 3.4-5.0 N BILIRUBIN TOTAL (test code = BILT) MG/DL 0.00-1.00 BILIRUBIN DIRECT (test code = BILD) MG/DL 0.00-0.30 BILIRUBIN INDIRECT (test cod e = BILIND) MG/DL 0.2-1.3 SGOT/AST (test code = AST) 26 Unit/L 15-37 N SGPT/ALT (test code = ALT) Unit/L 12-78 ALKALINE PHOSPHATASE TOTAL ( test code = ALKP) Unit/L 45-117 [id number] 16:14:00* Test Item Value Reference Range Interpretation Comme nts LIPASE (test code = LIP) 112 Unit/L 114-286 L HCG [id number] 16:14:00* Test Item Value Reference Range Interpretation Comme nts HCG SERUM (test code = HCG) mi-IU/ML 0-3 [id number] 16:14:00* Test Item Value Reference Range Interpretation Comme nts TROPONIN-I (test code = TROPI) NG/ML 0.000-0.045 CBC W/O [id number] 16:07:00* Test Item Value Reference Range Interpretation Comme nts WHITE BLOOD CELL (test code = WBC) 8.2 K/mm3 4.1-12.1 N RED BLOOD CELL (test code = RBC) 4.51 M/mm3 3.8-5.5 N HEMOGLOBIN (test code = HGB) 13.5 G/DL 10.6-15.8 N HEMATOCRIT (test code = HCT) 38.3 % 31.8-47.4 N MEAN CELL VOLUME (test code = MCV) 84.9 fL 80.1-101.1 N MEAN CELL HGB (test code = MCH) 29.9 pg 25.3-35.3 N MEAN CELL HGB CONCETRATION ( test code = MCHC) 35.2 G/DL 32.7-35.1 H RED CELL DISTRIBUTION WIDTH (test code = RDW) 12.4 % 12.2-16.4 N PLATELET COUNT (test code = PLT) 301 K/mm3 155-337 N MEAN PLATELET VOLUME (test c ode = MPV) 10.1 fL 6.8-11.2 N - US TRANSVAGINAL NON [id number] 15:45:00 [facility] : 2000 Sex: F Patient Name: BRANDON ROLON Unit No: [id number] EXAMS: CPT CODE: [id number] [place] [address] EXAMINATION: - US TRANSVAGINAL NON OB HISTORY: Pelvic pain COMPARISON: None. TECHNIQUE: Realtime grayscale and color spectral imaging of the pelvis was performed using a transabdominal approach through a distended urinary bladder and a transvaginal approach. LOCATION CODE: C3 FINDINGS: The uterus measures 6.2 x 3.0 x 3.5 cm. Punctate calcification is seen in the anterior myometrium which is likely benign. The uterus is otherwise unremarkable... The endometrial stripe measures 2.7 mm and is homogeneous.. The right ovary measures 4.0 x 2.8 x 2.9 cm. It contains scattered small follicles, and is normal in appearance, with normal blood flow. The left ovary is not definitively visualized. Free fluid:None IMPRESSION: Nonvisualization of the left ovary Otherwise, unremarkable pelvic ultrasound at 154 Reported and signed by: Keysha Rodríguez MD CC: Stacia Min NP Technologist: Sienna Puckett Trnscrbd D/ (1888) t.SDR.[id number] Probe: [id number] Orig Print D/T: S: 02/02/2020 (4289) Probe: [facility] NAME: BRANDON ROLON [address] [place] [address] PHYS: Stacia [place], [place] [address] : 2000 AGE: 19 SEX: F LOC: B.ERS PHONE #: [phone] EXAM DATE: 02/02/2020 STATUS: PRE ER FAX #: [phone] RAD NO: Page 1 Signed Report- XR FINGER(S) 2+V [id number] 20:28:00FAX: Gil Dailey [phone] [place]: E St: PRE Patient Name: BRANDON ROLON Unit No: [id number] EXAMS: CPT CODE: [id number] XR FINGER(S) 2+[place] [address] EXAMINATION: - XR FINGER(S) 2+V LT LOCATION: H61 HISTORY/INDICATION: DEFORMITY COMPARISON: None. FINDINGS: AP, lateral and oblique views centered on the left 4th digit. There is a mildly displaced dorsal avulsion fracture at the base of the 4th distal phalanx with fracture extending to the IP joint. No other fractures demonstrated. Soft tissue swelling throughout the 4th digit. IMPRESSION: Acute, dorsally displaced avulsion fracture at the base of the 4th distal phalanx. at 2027 Reported and si gned by: Lety Stein MD CC: Gil Dailey NP Dictated Date/Time: 12/30/2019 (2027)Technologist: Anahi Galdamez Transcribed Date/Time: 12/30/2019 (2027) By: [email or web address] Orig Print D/T: S: 12/30/2019 (2031) MEKHI Livingston NAME: BRANDON ROLON [address] [place] [address] Bl PHYS: SHELL. - Gil Dailey, [place] [address] : 2000 AGE: 19 SEX: F LOC: B.ERS PHONE #: [phone] EXAM DATE: 12/30/2019 STATUS: PRE ER FAX #: [phone] RAD NO: DC Dt: PAGE 1 Signed ReportCOMPREHENSIVE METABOLIC [id number] 14:19:00* Test Item Value Reference Range Interpretation Comme nts SODIUM (test code = NA) 136.0 mmol/L 133-144 N POTASSIUM (test code = K) 3.6 mmol/L 3.5-5.1 N CHLORIDE (test code = CL) 106 mmol/L 95-105 H CARBON DIOXIDE (test code = CO2) 27 mmol/L 21-32 N ANION GAP (test code = GAP) 3.0 GAP calc 4.0-15.0 L GLUCOSE (test code = GLU) 88 MG/DL 70-110 N BLOOD UREA NITROGEN (test code = BUN) 10 MG/DL 7-18 N GLOMERULAR FILTRATION RATE (test code = GFR) 82 estGFR >60 The estimated glomerular filtration rate is computed usingpatient race, age, sex, and serum creatinine. If any of theneeded data elements are missing the Laboratory can notcompute an estimation of the glomerular filtration rate.The GFR value units = ml/min/1.73 meter squared. EstimatedGFR values above 60 should be interpreted as >60, not anexact number.--- DRUG DOSAGE ALERT --- Drug dosage adjustments utilize different calculationparameter s. CREATININE (test code = CREAT) 0.90 MG/DL 0.55-1.30 N Results may be depressed if patient is takingN-Acetylcystei ne (NAC) and Metamizole (Dipyrone). TOTAL PROTEIN (test code = PROT) 8.4 G/DL 6.4-8.2 H ALBUMIN (test code = ALB) 4.2 G/DL 3.4-5.0 N ALBUMIN/GLOBULIN RATIO (test code = A/G) 1.0 RATIO 1.2-2.2 L CALCIUM (test code = CA) 9.1 MG/DL 8.5-10.1 N BILIRUBIN TOTAL (test code = BILT) 0.60 MG/DL 0.00-1.00 N BILIRUBIN DIRECT (test code = BILD) 0.16 MG/DL 0.00-0.30 N BILIRUBIN INDIRECT (test code = BILIND) 0.44 MG/DL 0.2-1.3 N SGOT/AST (test code = AST) 27 Unit/L 15-37 N SGPT/ALT (test code = ALT) 59 Unit/L 12-78 N ALKALINE PHOSPHATASE TOTAL (test code = ALKP) 64 Unit/L 45-117 N INDEX HEMOLYSIS (test code = HEMINDEX) 1 NORMAL <10 MG Index/DL 1 NORMAL INDEX ICTERIC (test code = ICTINDEX) 1 NORMAL <2 MG Index/DL 1 NORMAL INDEX LIPEMIA (test code = LIPINDEX) 1 NORMAL <50 MG Index/DL 1 NORMAL [id number] 14:19:00* Test Item Value Reference Range Interpretation Comme nts LIPASE (test code = LIP) 85 Unit/L 114-286 L COMPREHENSIVE METABOLIC [id number] 14:16:00* Test Item Value Reference Range Interpretation Comme nts SODIUM (test code = NA) 136.0 mmol/L 133-144 N POTASSIUM (test code = K) 3.6 mmol/L 3.5-5.1 N CHLORIDE (test code = CL) 106 mmol/L 95-105 H CARBON DIOXIDE (test code = CO2) 27 mmol/L 21-32 N ANION GAP (test code = GAP) 3.0 GAP calc 4.0-15.0 L GLUCOSE (test code = GLU) 88 MG/DL 70-110 N BLOOD UREA NITROGEN (test code = BUN) 10 MG/DL 7-18 N GLOMERULAR FILTRATION RATE (test code = GFR) 82 estGFR >60 The estimated glomerular filtration rate is computed usingpatient race, age, sex, and serum creatinine. If any of theneeded data elements are missing the Laboratory can notcompute an estimation of the glomerular filtration rate.The GFR value units = ml/min/1.73 meter squared. EstimatedGFR values above 60 should be interpreted as >60, not anexact number.--- DRUG DOSAGE ALERT --- Drug dosage adjustments utilize different calculationparameter s. CREATININE (test code = CREAT) 0.90 MG/DL 0.55-1.30 N Results may be depressed if patient is takingN-Acetylcystei ne (NAC) and Metamizole (Dipyrone). TOTAL PROTEIN (test code = PROT) G/DL 6.4-8.2 ALBUMIN (test code = ALB) 4.2 G/DL 3.4-5.0 N ALBUMIN/GLOBULIN RATIO (test code = A/G) RATIO 1.2-2.2 CALCIUM (test code = CA) 9.1 MG/DL 8.5-10.1 N BILIRUBIN TOTAL (test code = BILT) MG/DL 0.00-1.00 BILIRUBIN DIRECT (test code = BILD) 0.16 MG/DL 0.00-0.30 N BILIRUBIN INDIRECT (test code = BILIND) MG/DL 0.2-1.3 SGOT/AST (test code = AST) 27 Unit/L 15-37 N SGPT/ALT (test code = ALT) 59 Unit/L 12-78 N ALKALINE PHOSPHATASE TOTAL (test code = ALKP) Unit/L 45-117 INDEX HEMOLYSIS (test code = HEMINDEX) 1 NORMAL <10 MG Index/DL 1 NORMAL INDEX ICTERIC (test code = ICTINDEX) 1 NORMAL <2 MG Index/DL 1 NORMAL INDEX LIPEMIA (test code = LIPINDEX) 1 NORMAL <50 MG Index/DL 1 NORMAL [id number] 14:16:00* Test Item Value Reference Range Interpretation Comme nts LIPASE (test code = LIP) 85 Unit/L 114-286 L CBC W/AUTO [id number] 14:01:00* Test Item Value Reference Range Interpretation Comme nts WHITE BLOOD CELL (test code = WBC) 6.0 K/mm3 4.1-12.1 N RED BLOOD CELL (test code = RBC) 4.70 M/mm3 3.8-5.5 N HEMOGLOBIN (test code = HGB) 13.8 G/DL 10.6-15.8 N HEMATOCRIT (test code = HCT) 40.1 % 31.8-47.4 N MEAN CELL VOLUME (test code = MCV) 85.3 fL 80.1-101.1 N MEAN CELL HGB (test code = MCH) 29.4 pg 25.3-35.3 N MEAN CELL HGB CONCETRATION ( test code = MCHC) 34.4 G/DL 32.7-35.1 N RED CELL DISTRIBUTION WIDTH (test code = RDW) 12.9 % 12.2-16.4 N RED CELL DISTRIBUTION WIDTH (test code = RDW-SD) 39.7 fL 36.4-46.3 N PLATELET COUNT (test code = PLT) 301 K/mm3 155-337 N MEAN PLATELET VOLUME (test c ode = MPV) 10.1 fL 6.8-11.2 N GRANULOCYTE % (test code = GR%) 55.0 % 37.8-82.6 N IMMATURE GRANULOCYTE % (test code = IG%) 0.2 % 0.0-2.0 N LYMPHOCYTE % (test code = LY%) 32.2 % 14.1-45.4 N MONOCYTE % (test code = MO%) 8.4 % 2.5-11.7 N EOSINOPHIL % (test code = EO%) 3.5 % 0.0-6.2 N BASOPHIL % (test code = BA%) 0.7 % 0.0-2.1 N NUCLEATED RBC % (test code = NRBC%) 0.0 /100WBC% 0.0-1.0 N GRANULOCYTE # (test code = GR#) 3.29 k/mm3 2.0-13.7 N IMMATURE GRANULOCYTE # (test code = IG#) 0.01 K/mm3 0.00-0.03 N LYMPHOCYTE # (test code = LY#) 1.92 K/mm3 0.6-3.8 N MONOCYTE # (test code = MO#) 0.50 K/mm3 0.11-0.59 N EOSINOPHIL # (test code = EO#) 0.21 K/mm3 0.0-0.4 N BASOPHIL # (test code = BA#) 0.04 K/mm3 0.0-0.1 N NUCLEATED RBC # (test code = NRBC#) 0.00 K/mm3 0.0-0.05 N UA RFLX MICR CULT IF [id number] 12:29:00* Test Item Value Reference Range Interpretation Comme nts UA COLOR (test code = COLU) YELLOW DESCRIPT YELLOW UA APPEARANCE (test code = APPU) CLEAR DESCRIPT CLEAR UA GLUCOSE DIPSTICK (test code = DGLUU) NORMAL (0) mg/dL 0 (NORMAL) UA BILIRUBIN DIPSTICK (test code = BILU) NEGATIVE (0.0) mg/dL (NEG) 0 UA KETONE DIPSTICK (test code = KETU) NEGATIVE (0) mg/dL (NEG) 0 UA SPECIFIC GRAVITY (test code = SGU) 1.033 SG 1.001-1.035 UA BLOOD DIPSTICK (test code = HORTENSIA) NEGATIVE (0.00) mg/dL 0 (NEG) UA PH DIPSTICK (test code = GEM) 6.0 pH UNITS 4.6-8.0 UA PROTEIN DIPSTICK (test code = PROU) 30 (1+) mg/dL <30 (1+) A UA UROBILINIOGEN DIPSTICK (test code = URO) NORMAL (0) mg/Dl <2.0 (1+) UA NITRITE DIPSTICK (test code = ELA) NEGATIVE (0) SCREEN NEG UA LEUKOCYTE ESTERASE DIPSTICK (test code = LEUU) NEGATIVE (0) Leuk/mcL (NEG) 0 UA COMMENT (test code = COMU) CLEAN CATCH SPEC NoteSPEC SpecComment UA WBC (test code = WBCU) 0-3 #WBC/HPF 0-3 UA RBC (test code = RBCU) 0-3 #RBC/HPF 0-3 UA BACTERIA (test code = BACU) FEW >1 /HPF NONE-FEW UA SQUAMOUS CELLS (test code = SQU) RARE >0 /UL NONE-SQepi UA MUCUS (test code = MUCU) MANY /LPF NONE A UA CULTURE NEEDED? (test code = UACULT) Crit NOTmet CULT-N/A Criteria Cult byW Indication for culture: Suprapubic PainUR HCG [id number] 12:29:00* Test Item Value Reference Range Interpretation Comme nts UR HCG QUAL (test code = HCGQLU) NEGATIVE NEG Very dilute urin es with a low specific gravity may notcontain apprenticeship training representative levels of hCG. Indication for culture: Suprapubic PainUA RFLX MICR CULT IF [id number] 12:29:00* Test Item Value Reference Range Interpretation Comme nts UA COLOR (test code = COLU) YELLOW DESCRIPT YELLOW UA APPEARANCE (test code = APPU) CLEAR DESCRIPT CLEAR UA GLUCOSE DIPSTICK (test code = DGLUU) NORMAL (0) mg/dL 0 (NORMAL) UA BILIRUBIN DIPSTICK (test code = BILU) NEGATIVE (0.0) mg/dL (NEG) 0 UA KETONE DIPSTICK (test code = KETU) NEGATIVE (0) mg/dL (NEG) 0 UA SPECIFIC GRAVITY (test code = SGU) 1.033 SG 1.001-1.035 UA BLOOD DIPSTICK (test code = HORTENSIA) NEGATIVE (0.00) mg/dL 0 (NEG) UA PH DIPSTICK (test code = GEM) 6.0 pH UNITS 4.6-8.0 UA PROTEIN DIPSTICK (test code = PROU) 30 (1+) mg/dL <30 (1+) A UA UROBILINIOGEN DIPSTICK (test code = URO) NORMAL (0) mg/Dl <2.0 (1+) UA NITRITE DIPSTICK (test code = ELA) NEGATIVE (0) SCREEN NEG UA LEUKOCYTE ESTERASE DIPSTICK (test code = LEUU) NEGATIVE (0) Leuk/mcL (NEG) 0 UA COMMENT (test code = COMU) CLEAN CATCH SPEC NoteSPEC SpecComment UA WBC (test code = WBCU) 0-3 #WBC/HPF 0-3 UA RBC (test code = RBCU) 0-3 #RBC/HPF 0-3 UA BACTERIA (test code = BACU) FEW >1 /HPF NONE-FEW UA SQUAMOUS CELLS (test code = SQU) RARE >0 /UL NONE-SQepi UA MUCUS (test code = MUCU) MANY /LPF NONE A UA CULTURE NEEDED? (test code = UACULT) Crit NOTmet CULT-N/A Criteria [facility] Indication for culture: Suprapubic PainUR HCG [id number] 12:29:00* Test Item Value Reference Range Interpretation Comme nts UR HCG QUAL (test code = HCGQLU) NEGATIVE NEG Very dilute urin es with a low specific gravity may notcontain apprenticeship training representative levels of hCG. Indication for culture: Suprapubic PainUA RFLX MICR CULT IF [id number] 12:24:00* Test Item Value Reference Range Interpretation Comme nts UA COLOR (test code = COLU) DESCRIPT YELLOW UA APPEARANCE (test code = APPU) DESCRIPT CLEAR UA GLUCOSE DIPSTICK (test co de = DGLUU) mg/dL 0 (NORMAL) UA BILIRUBIN DIPSTICK (test code = BILU) mg/dL (NEG) 0 UA KETONE DIPSTICK (test cod e = KETU) mg/dL (NEG) 0 UA SPECIFIC GRAVITY (test co de = SGU) SG 1.001-1.035 UA BLOOD DIPSTICK (test code = HORTENSIA) mg/dL 0 (NEG) UA PH DIPSTICK (test code = GEM) pH UNITS 4.6-8.0 UA PROTEIN DIPSTICK (test co de = PROU) mg/dL <30 (1+) UA UROBILINIOGEN DIPSTICK (t est code = URO) mg/Dl <2.0 (1+) UA NITRITE DIPSTICK (test co de = ELA) SCREEN NEG UA LEUKOCYTE ESTERASE DIPSTI CK (test code = LEUU) Leuk/mcL (NEG) 0 UA COMMENT (test code = COMU) NoteSPEC SpecComment UA RBC (test code = RBCU) #RBC/HPF 0-3 Indication for culture: Suprapubic PainUR HCG [id number] 12:24:00* Test Item Value Reference Range Interpretation Comme nts UR HCG QUAL (test code = HCGQLU) NEGATIVE NEG Very dilute urin es with a low specific gravity may notcontain apprenticeship training representative levels of hCG. Indication for culture: Suprapubic PainNovel Coronavirus 2019 [id number] 15:10:00* Test Item Value Reference Range Interpretation Comments Novel Coronavirus 2019 nCoV (test code = COVID19) Not Detected Not Detected Testing was perf ormed using the Aptima SARS-CoV-2 assay.This test was developed and its performance characteristicsdetermined by [employer]. This test has not beenFDA cleared or approved. This test has been [facility] under an Emergency Use Authorization (EUA). This testis only authorized for the duration of time the declarationthat circumstances exist justifying the authorization ofthe emergency use of in vitro diagnostic tests fordetection of SARS-CoV-2 virus and/or diagnosis of COVID-19infection under section 564(b)(1) of the Act, 21 U.S.C.360bbb-3(b)(1), unless the authorization is terminated orrevoked sooner. When diagnostic testing is negative, thepossibility of a false negative result should be consideredin the context of a patient's recent exposures and thepresence of clinical signs and symptoms consistent withCOVID-19. An individual without symptoms of COVID-19 andwho is not shedding SARS-CoV-2 virus would expect to have anegative (not detected) result in this assay.Performed At: [address] [id number] Jam Shine MD Ph:[phone] Specimen comments: nasalDoes patient have the clinical criteria consistent with COVID-19? YIs the patient going to be discharged home? Y- XR CHEST 2 [id number] 20:18:00FAX: Giuliana Winn [phone] [place]: E St: PRE Patient Name: BRANDON ROLON Unit No: [id number] EXAMS: CPT CODE: [id number] XR CHEST 2 V 08720 CHEST, TWO VIEWS Dictation Location: N13 CLINICAL HISTORY: cough Technique: PA frontal and lateral views were obtained. FINDINGS: The visualized bony structures are normal.Aortic, hilar, and cardiac outlines are normal. The pulmonary vasculature is normal. Lungs are clear of infiltrates or suspicious nodules. No pleural effusion or pneumothorax. IMPRESSION: Normal chest x-ray. at 2018 Reported and signedby: Lucero Lopez M.D. CC: Giuliana CALLAWAY Dictated Date/Time: 10/02/2019 (2017)Technologist: Kacy Marcos Transcribed Date/Time: 10/02/2019 (2017) By: [facility] NAME: ОЛЬ[address] PHYS: Giuliana Wol[place], [place] [address] : 2000 AGE: 19 SEX: F LOC: B.ERS PHONE #: [phone] EXAM DATE: 10/02/2019 STATUS: PRE ER FAX #:[phone] RAD NO: DC Dt: PAGE 1 Signed ReportAG STREP GROUP A (THROAT)2019-09-24 19:05:00 * Test Item Value Reference Range Interpretation Comme nts AG STREP GROUP A (THROAT) (test code = STREPA) NEG SCREEN NEG STREP ANTIGEN SCREENING:Antigen screening test; suggest confirmation by culture.INTERPRETATION OF STREP ANTIGEN RESULTS:WHEN STREP GROUP A ANTIGEN IS NOT DETECTED, THE NEGATIVERESULT DOES NOT RULE OUT THE PRESENCE OF STREP GROUP A.WHEN STREP GROUP A ANTIGEN IS DETECTED, THE POSITIVE RESULTIS SIGNIFICANT. NEGATIVE RESULTS REFLEX A CULTURE. FORNEGATIVE RESULTS A CULTURE IS IN PROGRESS, RESULT TO FOLLOW. UA RFLX MICR CULT IF [id number] 14:21:00* Test Item Value Reference Range Interpretation Comme nts UA COLOR (test code = COLU) YELLOW DESCRIPT YELLOW UA APPEARANCE (test code = APPU) CLEAR DESCRIPT CLEAR UA GLUCOSE DIPSTICK (test code = DGLUU) NEGATIVE (0) mg/dL (NEG) 0 UA BILIRUBIN DIPSTICK (test code = BILU) NEGATIVE (0) mg/dL (NEG) 0 UA KETONE DIPSTICK (test code = KETU) 0 (NEG) mg/dL (NEG) 0 UA SPECIFIC GRAVITY (test code = SGU) 1.024 SG 1.001-1.035 UA BLOOD DIPSTICK (test code = HORTENSIA) NEGATIVE (0) mg/DL (NEG) 0 UA PH DIPSTICK (test code = GEM) 6.0 pH UNITS 4.6-8.0 UA PROTEIN DIPSTICK (test code = PROU) NEGATIVE (0) mg/dL <30 (1+) UA UROBILINIOGEN DIPSTICK (test code = URO) NORMAL (0) mg/dL <2.0 (1+) UA NITRITE DIPSTICK (test code = ELA) NEGATIVE (0) SCREEN NEG UA LEUKOCYTE ESTERASE DIPSTICK (test code = LEUU) NEGATIVE (0) Leuk/mcL (NEG) 0 UA COMMENT (test code = COMU) CLEAN CATCH SPEC Notes SpecComment UA WBC (test code = WBCU) 5-10 #WBC/HPF 0-3 A UA RBC (test code = RBCU) 0-3 #RBC/HPF 0-3 UA BACTERIA (test code = BACU) TRACE >0 /HPF NONE-FEW UA SQUAMOUS CELLS (test code = SQU) FEW >2 /HPF NONE-SQepi UA MUCUS (test code = MUCU) RARE /LPF NONE UA CULTURE NEEDED? (test code = UACULT) Crit NOTmet CULT-N/A [facility] Ind[facility] for culture: Suprapubic PainUR HCG [id number] 14:21:00* Test Item Value Reference Range Interpretation Comme nts UR HCG QUAL (test code = HCGQLU) NEGATIVE NEG Very dilute urin es with a low specific gravity may notcontain apprenticeship training representative levels of hCG. Indication for culture: Suprapubic PainUA RFLX MICR CULT IF [id number] 14:19:00* Test Item Value Reference Range Interpretation Comme nts UA COLOR (test code = COLU) YELLOW DESCRIPT YELLOW UA APPEARANCE (test code = APPU) CLEAR DESCRIPT CLEAR UA GLUCOSE DIPSTICK (test code = DGLUU) NEGATIVE (0) mg/dL (NEG) 0 UA BILIRUBIN DIPSTICK (test code = BILU) NEGATIVE (0) mg/dL (NEG) 0 UA KETONE DIPSTICK (test code = KETU) 0 (NEG) mg/dL (NEG) 0 UA SPECIFIC GRAVITY (test code = SGU) 1.024 SG 1.001-1.035 UA BLOOD DIPSTICK (test code = HORTENSIA) NEGATIVE (0) mg/DL (NEG) 0 UA PH DIPSTICK (test code = GEM) 6.0 pH UNITS 4.6-8.0 UA PROTEIN DIPSTICK (test code = PROU) NEGATIVE (0) mg/dL <30 (1+) UA UROBILINIOGEN DIPSTICK (test code = URO) NORMAL (0) mg/dL <2.0 (1+) UA NITRITE DIPSTICK (test code = ELA) NEGATIVE (0) SCREEN NEG UA LEUKOCYTE ESTERASE DIPSTICK (test code = LEUU) NEGATIVE (0) Leuk/mcL (NEG) 0 UA RBC (test code = RBCU) #RBC/HPF 0-3 Indication for culture: Suprapubic PainUR HCG [id number] 14:19:00* Test Item Value Reference Range Interpretation Comme nts UR HCG QUAL (test code = HCGQLU) NEGATIVE NEG Very dilute urin es with a low specific gravity may notcontain apprenticeship training representative levels of hCG. Indication for culture: Suprapubic PainUA RFLX MICR CULT IF [id number] 14:15:00* Test Item Value Reference Range Interpretation Comme nts UA COLOR (test code = COLU) YELLOW DESCRIPT YELLOW UA APPEARANCE (test code = APPU) CLEAR DESCRIPT CLEAR UA GLUCOSE DIPSTICK (test code = DGLUU) NEGATIVE (0) mg/dL (NEG) 0 UA BILIRUBIN DIPSTICK (test code = BILU) NEGATIVE (0) mg/dL (NEG) 0 UA KETONE DIPSTICK (test code = KETU) 0 (NEG) mg/dL (NEG) 0 UA SPECIFIC GRAVITY (test code = SGU) 1.024 SG 1.001-1.035 UA BLOOD DIPSTICK (test code = HORTENSIA) NEGATIVE (0) mg/DL (NEG) 0 UA PH DIPSTICK (test code = GEM) 6.0 pH UNITS 4.6-8.0 UA PROTEIN DIPSTICK (test code = PROU) NEGATIVE (0) mg/dL <30 (1+) UA UROBILINIOGEN DIPSTICK (test code = URO) NORMAL (0) mg/dL <2.0 (1+) UA NITRITE DIPSTICK (test code = ELA) NEGATIVE (0) SCREEN NEG UA LEUKOCYTE ESTERASE DIPSTICK (test code = LEUU) NEGATIVE (0) Leuk/mcL (NEG) 0 UA RBC (test code = RBCU) #RBC/HPF 0-3 Indication for culture: Suprapubic PainUR HCG [id number] 14:15:00* Test Item Value Reference Range Interpretation Comme nts UR HCG QUAL (test code = HCGQLU) NEG Indication for culture: Suprapubic PainAG STREP GROUP A (THROAT)2019-02-08 10:13:00* Test Item Value Reference Range Interpretation Comme nts AG STREP GROUP A (THROAT) (test code = STREPA) NEG SCREEN NEG STREP ANTIGEN SCREENING:Antigen screening test; suggest confirmation by culture.INTERPRETATION OF STREP ANTIGEN RESULTS:WHEN STREP GROUP A ANTIGEN IS NOT DETECTED, THE NEGATIVERESULT DOES NOT RULE OUT THE PRESENCE OF STREP GROUP A.WHEN STREP GROUP A ANTIGEN IS DETECTED, THE POSITIVE RESULTIS SIGNIFICANT. NEGATIVE RESULTS REFLEX A CULTURE. FORNEGATIVE RESULTS A CULTURE IS IN PROGRESS, RESULT TO FOLLOW. Notes Date/Time Note Provider Source 2020-07-30 01:00:[address] [facility] ([facility]) EMERGENCY PROVIDER REPORT REPORT#:[id number] REPORT STATUS: Signed DATE:07/30/20 TIME: 0100 PATIENT: BRANDON ROLON UNIT #: [id number] ROOM/BED: AGE: 20 SEX: F PCP PHYS: No Primary or Family Physician SERVICE AUTHOR: Gil Dailey JOB ORDER CLERK * ALL edits or amendments must be made on the electronic/computer document * HPI- Female Free Text HPI Notes Free Text HPI Notes 20-year-old female presents the ED complaining of burning dysuria for the past week. Today noticed blood in urine. Denies associated fever, vomiting, vaginal discharge or other related symptoms. Denies concerns for STI. General Confirmed Patient Yes Patient Type New patient Initial Greet Date/Time 07/29/20 8053 Presentation Chief Complaint Dysuria Context /Sexual Hx Last Menstrual Period 07/10/20 Review of Systems ROS Statements All systems rev neg except as marked. Focused Review of Systems Constitutional Denies: Chills, Fever. GI Denies: Abdominal pain, Nausea. Female Reports: Dysuria. Denies: Flank pain, Pelvic pain, . Past Medical History - Adult Stated Complaint UTI Allergies Coded Allergies: No Known Allergies (07/29/20) Home Medications Active Scripts ACETAMINOPHEN (TYLENOL) 500 MG PO Q4H PRN PRN PAIN ACETAMINOPHEN (TYLENOL) 500 MG PO Q4H PRN PRN PAIN #24 TABS Prov: 02/16/20 ALBUTEROL (PROVENTIL HFA 90 MCG/ACT 6.7 GM) 1 PUFF INH RTQ4H ALBUTEROL (PROVENTIL HFA 90 MCG/ACT 6.7 GM) 1 PUFF INH RTQ4H #6.7 GM Prov: 02/16/20 predniSONE 20 MG PO BID predniSONE 20 MG PO BID #20 TABS Prov: 02/16/20 Reported Medications FEXOFENADINE (PAMELA ALLERGY) 180 MG PO DAILY ESCITALOPRAM (LEXAPRO) Past Medical History: Reports: Depression/mood disorder. Additional Medical History Obesity Additional Surgical History Adenoidectomy. Alcohol Use Alcohol use Smoking status: Smoking status for patients 13 years old or older: Never Smoker Ambulatory Status Independent Physical Exam Vital Signs Vital Signs First Documented: Result Date Time Pulse Ox 100 07/29 2246 B/P 124/80 07/29 2246 B/P Mean 94 07/296 O2 Delivery Room air 07/29 2245 Temp 36.6 07/29 224 Pulse 106 / 2246 Resp 16 07/296 Last Documented: Result Date Time Pulse Ox 100 07/29 2246 B/P 124/80 07/29 2246 B/P Mean 94 07/29 2245 O2 Delivery Room air 07/29 2245 Temp 36.6 / 224 Pulse 106 / 2246 Resp 16 / 2246 Review of Vital Signs Reviewed Focused PE General/Const General/Const Awake, Alert, Well appearing Resp/Chest Respiratory/Chest Breath sounds NL, Breath sounds = bilat, No respiratory distress, No rales, No rhonchi, No wheezing Cardiovascular Cardiovascular Heart rate NL, Regular rhythm, Heart sounds NL, Peripheral circulation NL Abdomen/GI Abdomen/GI Soft, Non-tender, No guarding, No rebound MS Back Back Inspection NL, Non-tender, No CVA tenderness Skin Skin Color NL, No rash, Warm, Dry, Turgor NL Genitourinary General Exam deferred Interpretation Diagnostics Lab Results Interpretation Results Laboratory Tests: 07/30 0027 Urines Urine Color (YELLOW DESCRIPT) YELLOW Urine Appearance (CLEAR DESCRIPT) CLEAR Urine pH (4.6 - 8.0 pH UNITS) 6.0 Ur Specific [place] (1.001 - 1.035 SG) 1.039 H Urine Protein (<30 (1+) mg/dL) 50 (1+) H Urine Glucose (UA) (0 (NORMAL) mg/dL) NORMAL (0) Urine Ketones ((NEG) 0 mg/dL) TRACE Urine Blood (0 (NEG) mg/dL) NEGATIVE (0.00) Urine Nitrite (NEG SCREEN) NEGATIVE (0) Urine Bilirubin ((NEG) 0 mg/dL) NEGATIVE (0.0) Urine Urobilinogen (<2.0 (1+) mg/Dl) NORMAL (0) Ur Leukocyte Esterase ((NEG) 0 Leuk/mcL) 500 H Urine RBC (0 - 3 #RBC/HPF) 0-3 Urine WBC (0 - 3 #WBC/HPF) 5-10 H Ur Squamous Epith Cells (NONE - SQepi /UL) FEW >2 Urine Bacteria (NONE - FEW /HPF) FEW >1 Urine Mucus (NONE /LPF) RARE Urine HCG, Qual (NEG) NEGATIVE Lab Statement Laboratory studies reviewed and considered in the medical decision-making. Re-Evaluation MDM Re-Evaluation/Progress Re-Evaluation/Progress Text/Dict Note History exam consistent with UTI. Discussed results, diagnosis plan for discharge. Encourage antibiotics as prescribed with Zofran provided as needed for nausea. Patient provided referral for follow-up however encouraged to return for new or worsening symptoms. Patient Discharge Departure Vital Signs/Condition Vital Signs First Documented: Result Date Time Pulse Ox 100 07/29 2245 B/P 124/80 07/29 2245 B/P Mean 94 07/29 2245 O2 Delivery Room air 07/29 2245 Temp 36.6 07/29 2245 Pulse 106 07/29 2245 Resp 16 07/29 2245 Last Documented: Result Date Time Pulse Ox 100 07/29 2245 B/P 124/80 07/29 2245 B/P Mean 94 07/29 2245 O2 Delivery Room air 07/29 2245 Temp 36.6 05/03 2246 Pulse 106 05/03 2246 Resp 16 07/296 All vital signs available at the time of this entry have been reviewed. Condition Stable Clinical Impression Clinical Impression Primary Impression: UTI (urinary tract infection) Disposition Decision Discharge )( Discharged to Home Yes )( Time 010 )( Date 07/30/20 Discharge/Care Plan Counseled Regarding Diagnosis, Lab results, Prescriptions, Need for follow-up, When to return to ED (Auto) Prescriptions Current Visit Scripts CEPHALEXIN (KEFLEX) 500 MG PO Q6H CEPHALEXIN (KEFLEX) 500 MG PO Q6H #28 CAPS ONDANSETRON ODT (ZOFRAN ODT) 4 MG PO Q6H PRN PRN NAUSEA/VOMITING 5 Days #15 TABS Patient Instructions Urinary Tract Infections in Women Referrals PRIMARY CARE Departure Forms WORK/SCHOOL EXCUSE VARIABLE Discharge Note I have spoken with the patient and/or caregivers. I have explained the patient's condition, diagnoses and treatment plan based on the information available to me at this time. I have answered the patient's and/or caregiver's questions and addressed any concerns. The patient and/or caregivers have as good an understanding of the patient's diagnosis, condition and treatment plan as can be expected at this point. The vital signs have been stable. The patient's condition is stable and appropriate for discharge from the emergency department. The patient will pursue further outpatient evaluation with the primary care physician or other designated or consulting physician as outlined in the discharge instructions. The patient and/or caregivers are agreeable to this plan of care and follow-up instructions have been explained in detail. The patient and/or caregivers have received these instructions in written format and have expressed an understanding of the discharge instructions. The patient and/or caregivers are aware that any significant change in condition or worsening of symptoms should prompt an immediate return to this or the closest emergency department or a call to 911. at 1825 RPT #:[id number] END OF REPORT [facility] 2020-07-30 01:00:00 [facility] ([facility]) EMERGENCY PROVIDER REPORT REPORT#:[id number] REPORT STATUS: Signed DATE:07/30/20 TIME: 99 PATIENT: RBANDON ROLON UNIT #: [id number] ROOM/BED: AGE: 20 SEX: F PCP PHYS: No Primary or Family Physician SERVICE AUTHOR: Gil Dailey JOB ORDER CLERK * ALL edits or amendments must be made on the electronic/computer document * Gil Dailey 07/30/20 0100: HPI- Female Free Text HPI Notes Free Text HPI Notes 20-year-old female presents the ED complaining of burning dysuria for the past week. Today noticed blood in urine. Denies associated fever, vomiting, vaginal discharge or other related symptoms. Denies concerns for STI. General Confirmed Patient Yes Patient Type New patient Initial Greet Date/Time 07/29/202245 Presentation Chief Complaint Dysuria Context /Sexual Hx Last Menstrual Period 07/10/20 Review of Systems ROS Statements All systems rev neg except as marked. Focused Review of Systems Constitutional Denies: Chills, Fever. GI Denies: Abdominal pain, Nausea. Female Reports: Dysuria. Denies: Flank pain, Pelvic pain, . Past Medical History - Adult Stated Complaint UTI Allergies Coded Allergies: No Known Allergies (07/29/20) Home Medications Active Scripts ACETAMINOPHEN (TYLENOL) 500 MG PO Q4H PRN PRN PAIN ACETAMINOPHEN (TYLENOL) 500 MG PO Q4H PRN PRN PAIN #24 TABS Prov: 02/16/20 ALBUTEROL (PROVENTIL HFA 90 MCG/ACT 6.7 GM) 1 PUFF INH RTQ4H ALBUTEROL (PROVENTIL HFA 90 MCG/ACT 6.7 GM) 1 PUFF INH RTQ4H #6.7 GM Prov: 02/16/20 predniSONE 20 MG PO BID predniSONE 20 MG PO BID #20 TABS Prov: 02/16/20 Reported Medications FEXOFENADINE (PAMELA ALLERGY) 180 MG PO DAILY ESCITALOPRAM (LEXAPRO) Past Medical History: Reports: Depression/mood disorder. Additional Medical History Obesity Additional Surgical History Adenoidectomy. Alcohol Use Alcohol use Smoking status: Smoking status for patients 13 years old or older: Never Smoker Ambulatory Status Independent Physical Exam Vital Signs Vital Signs First Documented: Result Date Time Pulse Ox 100 07/29 2245 B/P 124/80 07/29 2245 B/P Mean 94 07/29 2245 O2 Delivery Room air 07/29 2245 Temp 97.8 07/29 2245 Pulse 106 07/29 2245 Resp 16 07/29 2245 Last Documented: Result Date Time Pulse Ox 100 07/29 2245 B/P 124/80 07/29 2245 B/P Mean 94 07/29 2245 O2 Delivery Room air 07/29 2245 Temp 97.8 07/29 2245 Pulse 106 07/29 2245 Resp 16 07/29 2245 Review of Vital Signs Reviewed Focused PE General/Const General/Const Awake, Alert, Well appearing Resp/Chest Respiratory/Chest Breath sounds NL, Breath sounds = bilat, No respiratory distress, No rales, No rhonchi, No wheezing Cardiovascular Cardiovascular Heart rate NL, Regular rhythm, Heart sounds NL, Peripheral circulation NL Abdomen/GI Abdomen/GI Soft, Non-tender, No guarding, No rebound MS Back Back Inspection NL, Non-tender, No CVA tenderness Skin Skin Color NL, No rash, Warm, Dry, Turgor NL Genitourinary General Exam deferred Interpretation Diagnostics Lab Results Interpretation Results Laboratory Tests: 07/30 26 Urines Urine Color (YELLOW DESCRIPT) YELLOW Urine Appearance (CLEAR DESCRIPT) CLEAR Urine pH (4.6 - 8.0 pH UNITS) 6.0 Ur Specific [place] (1.001 - 1.035 SG) 1.039 H Urine Protein (<30 (1+) mg/dL) 50 (1+) H Urine Glucose (UA) (0 (NORMAL) mg/dL) NORMAL (0) Urine Ketones ((NEG) 0 mg/dL) TRACE Urine Blood (0 (NEG) mg/dL) NEGATIVE (0.00) Urine Nitrite (NEG SCREEN) NEGATIVE (0) Urine Bilirubin ((NEG) 0 mg/dL) NEGATIVE (0.0) Urine Urobilinogen (<2.0 (1+) mg/Dl) NORMAL (0) Ur Leukocyte Esterase ((NEG) 0 Leuk/mcL) 500 H Urine RBC (0 - 3 #RBC/HPF) 0-3 Urine WBC (0 - 3 #WBC/HPF) 5-10 H Ur Squamous Epith Cells (NONE - SQepi /UL) FEW >2 Urine Bacteria (NONE - FEW /HPF) FEW >1 Urine Mucus (NONE /LPF) RARE Urine HCG, Qual (NEG) NEGATIVE Lab Statement Laboratory studies reviewed and considered in the medical decision-making. Re-Evaluation MDM Re-Evaluation/Progress Re-Evaluation/Progress Text/Dict Note History exam consistent with UTI. Discussed results, diagnosis plan for discharge. Encourage antibiotics as prescribed with Zofran provided as needed for nausea. Patient provided referral for follow-up however encouraged to return for new or worsening symptoms. Patient Discharge Departure Vital Signs/Condition Vital Signs First Documented: Result Date Time Pulse Ox 100 07/29 2246 B/P 124/80 / 2246 B/P Mean 94 / 2246 O2 Delivery Room air 07/29 2245 Temp 97.8 / 224 Pulse 106 / 2246 Resp 16 07/296 Last Documented: Result Date Time Pulse Ox 100 07/29 2246 B/P 124/80 / 2246 B/P Mean 94 / 2246 O2 Delivery Room air 07/29 224 Temp 97.8 07/296 Pulse 106 07/29 2246 Resp 16 07/29 2245 All vital signs available at the time of this entry have been reviewed. Condition Stable Clinical Impression Clinical Impression Primary Impression: UTI (urinary tract infection) Disposition Decision Discharge )( Discharged to Home Yes )( Time 0100 )( Date 07/30/20 Discharge/Care Plan Counseled Regarding Diagnosis, Lab results, Prescriptions, Need for follow-up, When to return to ED (Auto) Prescriptions Current Visit Scripts CEPHALEXIN (KEFLEX) 500 MG PO Q6H CEPHALEXIN (KEFLEX) 500 MG PO Q6H #28 CAPS ONDANSETRON ODT (ZOFRAN ODT) 4 MG PO Q6H PRN PRN NAUSEA/VOMITING 5 Days #15 TABS Patient Instructions Urinary Tract Infections in Women Referrals PRIMARY CARE Departure Forms WORK/SCHOOL EXCUSE VARIABLE Discharge Note I have spoken with the patient and/or caregivers. I have explained the patient's condition, diagnoses and treatment plan based on the information available to me at this time. I have answered the patient's and/or caregiver's questions and addressed any concerns. The patient and/or caregivers have as good an understanding of the patient's diagnosis, condition and treatment plan as can be expected at this point. The vital signs have been stable. The patient's condition is stable and appropriate for discharge from the emergency department. The patient will pursue further outpatient evaluation with the primary care physician or other designated or consulting physician as outlined in the discharge instructions. The patient and/or caregivers are agreeable to this plan of care and follow-up instructions have been explained in detail. The patient and/or caregivers have received these instructions in written format and have expressed an understanding of the discharge instructions. The patient and/or caregivers are aware that any significant change in condition or worsening of symptoms should prompt an immediate return to this or the closest emergency department or a call to 911. Deni Grewal 08/04/20 1144: Patient Discharge Departure Supervising Physician Note MidLv/Doc Saw Pt 2 I have personally interviewed and examined the patient. All charts, labs, and imaging studies were reviewed. I agree with this PA/tread cutter findings, exam and plan. at 1825 at 1145 RPT #:[id number] END OF REPORT [facility] 2020-03-14 10:40:[address] [facility] ([facility]) EMERGENCY PROVIDER REPORT REPORT#:[id number] REPORT STATUS: Signed DATE:03/14/20 TIME: 1040 PATIENT: BRANDON ROLON UNIT #: [id number] ROOM/BED: AGE: 19 SEX: F PCP PHYS: No Primary or Family Physician SERVICE AUTHOR: Giuliana Phan * ALL edits or amendments must be made on the electronic/computer document * Giuliana Phan 03/14/20 1040: HPI-General Illness General Confirmed Patient Yes Patient Type New patient PCP NONE Presentation Chief Complaint Congested, Fever, Sore throat Hx Obtained From Patient Sudden in Onset? No Onset Occurred Days ago (2) Past Medical History - Adult Stated Complaint CHILLS FEVER RUNNY ZURDO SORE THROAT Allergies Coded Allergies: No Known Allergies (02/02/20) Home Medications Active Scripts ACETAMINOPHEN (TYLENOL) 500 MG PO Q4H PRN PRN PAIN ACETAMINOPHEN (TYLENOL) 500 MG PO Q4H PRN PRN PAIN #24 TABS Prov: 02/16/20 ALBUTEROL (PROVENTIL HFA 90 MCG/ACT 6.7 GM) 1 PUFF INH RTQ4H ALBUTEROL (PROVENTIL HFA 90 MCG/ACT 6.7 GM) 1 PUFF INH RTQ4H #6.7 GM Prov: 02/16/20 predniSONE 20 MG PO BID predniSONE 20 MG PO BID #20 TABS Prov: 02/16/20 Reported Medications FEXOFENADINE (PAMELA ALLERGY) 180 MG PO DAILY ESCITALOPRAM (LEXAPRO) Past Medical History: Reports: Depression/mood disorder. Additional Medical History Obesity Additional Surgical History Adenoidectomy. Alcohol Use Alcohol use Smoking status for patients 13 years old or older: Unknown,if ever smoked Physical Exam Vital Signs Vital Signs First Documented: Result Date Time Pulse Ox 97 03/14 1037 B/P 112/70 03/14 1037 B/P Mean 84 03/14 1037 O2 Delivery Room air 03/14 1037 Temp 101.0 03/14 1037 Pulse 130 03/14 1037 Resp 18 03/14 1037 Last Documented: Result Date Time Pulse Ox 98 03/14 1235 B/P 115/75 03/14 1235 B/P Mean 88 03/14 1235 O2 Delivery Room air 03/14 1235 Temp 98.4 03/14 1235 Pulse 99 03/14 1235 Resp 18 03/14 1235 Review of Vital Signs Reviewed Re-Evaluation MDM ED Course Medication(s) Ordered Medication(s) Ordered: Central Nervous System Agents Sig/Ovidio Start time Last Medication Dose Route Stop Time Status Admin Ibuprofen 800 MG X1ED STA 03/14 1119 DC 03/14 PO 03/14 1120 1130 Electrolytic, Caloric, And Ken Sig/Ovidio Start time Last Medication Dose Route Stop Time Status Admin Lactated Ringer's 1,000 ML X1ED STA 03/14 1121 DC 03/14 IV 03/14 1122 1130 Patient Discharge Departure Vital Signs/Condition Vital Signs First Documented: Result Date Time Pulse Ox 97 03/14 1037 B/P 112/70 03/14 1037 B/P Mean 84 03/14 1037 O2 Delivery Room air 03/14 1037 Temp 101.0 03/14 1037 Pulse 130 03/14 1037 Resp 18 03/14 1037 Last Documented: Result Date Time Pulse Ox 98 03/14 1235 B/P 115/75 03/14 1235 B/P Mean 88 03/14 1235 O2 Delivery Room air 03/14 1235 Temp 98.4 03/14 1235 Pulse 99 03/14 1235 Resp 18 03/14 1235 All vital signs available at the time of this entry have been reviewed. Erendira Fox 03/14/20 1140: HPI-General Illness Free Text HPI Notes Free Text HPI Notes 19-year-old female presenting with 2 days of sore throat fevers body aches. She denies any chest pain shortness of breath or other complaints. Her mom made her come in because she had a temperature of 102 today. She last took Tylenol this morning around 8 AM. She took Motrin last night. Her sister recently tested positive for the flu. General Initial Greet Date/Time 03/14/20 1036 Review of Systems ROS Statements All systems rev neg except as marked. Free Text ROS Notes Free Text ROS Notes Review of systems: Constitutional: Positive for fever Eyes: no vision change Ear nose and throat: no pain Respiratory: no cough no shortness of breath Cardiovascular: no chest pain GI: no abdominal pain or diarrhea Musculoskeletal: no back pain Neuro: no change in mental status Physical Exam Free Text PE Notes Free Text PE Notes General appearance: no acute distress HEENT: atraumatic, no trismus clear voice Neck: no meningismus Respiratory: clear to auscultation bilaterally, no increase work of breathing Chest: regular rate and rhythm no murmurs rubs or gallops Abdomen: soft nontender nondistended Extremities: warm well perfused, neurovascularly intact Skin: no redness Neurologic alert and oriented x3 moving all extremities equally well Interpretation Diagnostics Lab Results Interpretation Results Laboratory Tests: 03/14 03/14 1131 1052 Serology Group A Strep Antibody (NEG SCREEN) NEG Urines Urine Color (YELLOW DESCRIPT) YELLOW Urine Appearance (CLEAR DESCRIPT) TURBID (1+)HAZY-CLDY H Urine pH (4.6 - 8.0 pH UNITS) 6.0 Ur Specific [place] (1.001 - 1.035 SG) 1.037 H Urine Protein (<30 (1+) mg/dL) 30 (1+) H Urine Glucose (UA) (0 (NORMAL) mg/dL) NORMAL (0) Urine Ketones ((NEG) 0 mg/dL) NEGATIVE (0) Urine Blood (0 (NEG) mg/dL) NEGATIVE (0.00) Urine Nitrite (NEG SCREEN) NEGATIVE (0) Urine Bilirubin ((NEG) 0 mg/dL) NEGATIVE (0.0) Urine Urobilinogen (<2.0 (1+) mg/Dl) NORMAL (0) Ur Leukocyte Esterase ((NEG) 0 Leuk/mcL) 25 H Urine RBC (0 - 3 #RBC/HPF) 0-3 Urine WBC (0 - 3 #WBC/HPF) 3-5 Ur Squamous Epith Cells (NONE - SQepi /UL) FEW >2 Amorphous Sediment (NONE - FEW #/mcL) MODERATE Urine Bacteria (NONE - FEW /HPF) TRACE >0 Urine Mucus (NONE /LPF) FEW H Urine HCG, Qual (NEG) NEGATIVE Microbiology: Date/Time Procedure - Status Source Growth 03/14 105 Group A Streptococcus Screen (HOSSEIN) - RES THROAT 03/14 1052 Influenza Virus Type B Antigen - COMP NASAL 03/14 105 Influenza Virus Type A Antigen - COMP NASAL Point of Care Testing Pulse Oximetry Pulse Ox % 100 On: Room air Interpretation Interpreted by me, Pulse oximetry normal Time 1141 ECG #1 Interpretation Text/Dict Note EKG time 10:45 AM rate 151 sinus tach otherwise unremarkable Re-Evaluation MDM Re-Evaluation/Progress #1 Text/Dict Note Patient is extremely well-appearing. She already received Tylenol this morning so I explained to her that she can take another dose today. We will give her some Motrin now give her some fluids which should improve her tachycardia. Okay for discharge home if her vital signs improved and she remains looking so well. Time of Re-Eval 1142 Re-Eval Status Unchanged Patient Discharge Departure Clinical Impression Clinical Impression Primary Impression: Fever Secondary Impressions: Malaise, Tachycardia Disposition Decision Discharge )( Discharged to Home Yes )( Time 1248 )( Date 03/14/20 Discharge/Care Plan Patient Instructions ED Bronchitis, No Antibiotic (Adult) Additional Instructions You were seen in the emergency room for fever and body aches. I am concerned that you could have Covid but you declined the testing. You need to self isolate for 10 to 14 days from the onset of your symptoms and for 2 days after your last fever. Please return for shortness of breath when you exert yourself neck stiffness rash confusion feeling like he may pass out or any other new or concerning symptoms. Departure Forms WORK/SCHOOL EXCUSE VARIABLE Restrictions apply through 03/28/20 May return to work/school 03/28/20 Any Restrictions self isolation due to possible covid at 1118 RPT #:[id number] END OF REPORT [facility] 2020-03-14 10:40:[address] [facility] ([facility]) EMERGENCY PROVIDER REPORT REPORT#:[id number] REPORT STATUS: Signed DATE:03/14/20 TIME: 104 PATIENT: BRANDON ROLON UNIT #: [id number] ROOM/BED: AGE: 19 SEX: F PCP PHYS: No Primary or Family Physician SERVICE AUTHOR: Giuliana Phan * ALL edits or amendments must be made on the electronic/computer document * Giuliana Phan 03/14/20 1040: HPI-General Illness General Confirmed Patient Yes Patient Type New patient Initial Greet Date/Time 03/14/20 1036 PCP NONE Presentation Chief Complaint Congested, Fever, Sore throat Hx Obtained From Patient Sudden in Onset? No Onset Occurred Days ago (2) Past Medical History - Adult Stated Complaint CHILLS FEVER RUNNY ZURDO SORE THROAT Allergies Coded Allergies: No Known Allergies (02/02/20) Home Medications Active Scripts ACETAMINOPHEN (TYLENOL) 500 MG PO Q4H PRN PRN PAIN ACETAMINOPHEN (TYLENOL) 500 MG PO Q4H PRN PRN PAIN #24 TABS Prov: 02/16/20 ALBUTEROL (PROVENTIL HFA 90 MCG/ACT 6.7 GM) 1 PUFF INH RTQ4H ALBUTEROL (PROVENTIL HFA 90 MCG/ACT 6.7 GM) 1 PUFF INH RTQ4H #6.7 GM Prov: 02/16/20 predniSONE 20 MG PO BID predniSONE 20 MG PO BID #20 TABS Prov: 02/16/20 Reported Medications FEXOFENADINE (PAMELA ALLERGY) 180 MG PO DAILY ESCITALOPRAM (LEXAPRO) Past Medical History: Reports: Depression/mood disorder. Additional Medical History Obesity Additional Surgical History Adenoidectomy. Alcohol Use Alcohol use Smoking status for patients 13 years old or older: Unknown,if ever smoked Physical Exam Vital Signs Review of Vital Signs Reviewed Re-Evaluation MDM Free Text MDM Notes Additional Text Dr Fox took over the care of this patient. ED Course Medication(s) Ordered Medication(s) Ordered: Central Nervous System Agents Sig/Ovidio Start time Last Medication Dose Route Stop Time Status Admin Ibuprofen 800 MG X1ED STA 03/14 1119 DC 03/14 PO 03/14 1120 1130 Electrolytic, Caloric, And Ken Sig/Ovidio Start time Last Medication Dose Route Stop Time Status Admin Lactated Ringer's 1,000 ML X1ED STA 03/14 1121 DC 03/14 IV 03/14 1122 1130 Erendira Fox Yusuf 03/14/20 1140: HPI-General Illness Free Text HPI Notes Free Text HPI Notes 19-year-old female presenting with 2 days of sore throat fevers body aches. She denies any chest pain shortness of breath or other complaints. Her mom made her come in because she had a temperature of 102 today. She last took Tylenol this morning around 8 AM. She took Motrin last night. Her sister recently tested positive for the flu. Review of Systems ROS Statements All systems rev neg except as marked. Free Text ROS Notes Free Text ROS Notes Review of systems: Constitutional: Positive for fever Eyes: no vision change Ear nose and throat: no pain Respiratory: no cough no shortness of breath Cardiovascular: no chest pain GI: no abdominal pain or diarrhea Musculoskeletal: no back pain Neuro: no change in mental status Physical Exam Vital Signs Vital Signs First Documented: Result Date Time Pulse Ox 97 03/14 1037 B/P 112/70 03/14 1037 B/P Mean 84 03/14 1037 O2 Delivery Room air 03/14 1037 Temp 101.0 03/14 1037 Pulse 130 03/14 1037 Resp 18 03/14 1037 Last Documented: Result Date Time Pulse Ox 98 03/14 1235 B/P 115/75 03/14 1235 B/P Mean 88 03/14 1235 O2 Delivery Room air 03/14 1235 Temp 98.4 03/14 1235 Pulse 99 03/14 1235 Resp 18 03/14 1235 Free Text PE Notes Free Text PE Notes General appearance: no acute distress HEENT: atraumatic, no trismus clear voice Neck: no meningismus Respiratory: clear to auscultation bilaterally, no increase work of breathing Chest: regular rate and rhythm no murmurs rubs or gallops Abdomen: soft nontender nondistended Extremities: warm well perfused, neurovascularly intact Skin: no redness Neurologic alert and oriented x3 moving all extremities equally well Interpretation Diagnostics Lab Results Interpretation Results Laboratory Tests: 03/14 03/14 1131 1052 Serology Group A Strep Antibody (NEG SCREEN) NEG Urines Urine Color (YELLOW DESCRIPT) YELLOW Urine Appearance (CLEAR DESCRIPT) TURBID (1+)HAZY-CLDY H Urine pH (4.6 - 8.0 pH UNITS) 6.0 Ur Specific [place] (1.001 - 1.035 SG) 1.037 H Urine Protein (<30 (1+) mg/dL) 30 (1+) H Urine Glucose (UA) (0 (NORMAL) mg/dL) NORMAL (0) Urine Ketones ((NEG) 0 mg/dL) NEGATIVE (0) Urine Blood (0 (NEG) mg/dL) NEGATIVE (0.00) Urine Nitrite (NEG SCREEN) NEGATIVE (0) Urine Bilirubin ((NEG) 0 mg/dL) NEGATIVE (0.0) Urine Urobilinogen (<2.0 (1+) mg/Dl) NORMAL (0) Ur Leukocyte Esterase ((NEG) 0 Leuk/mcL) 25 H Urine RBC (0 - 3 #RBC/HPF) 0-3 Urine WBC (0 - 3 #WBC/HPF) 3-5 Ur Squamous Epith Cells (NONE - SQepi /UL) FEW >2 Amorphous Sediment (NONE - FEW #/mcL) MODERATE Urine Bacteria (NONE - FEW /HPF) TRACE >0 Urine Mucus (NONE /LPF) FEW H Urine HCG, Qual (NEG) NEGATIVE Microbiology: Date/Time Procedure - Status Source Growth 03/14 1052 Group A Streptococcus Screen (HOSSEIN) - RES THROAT 03/14 1052 Influenza Virus Type B Antigen - COMP NASAL 03/14 1052 Influenza Virus Type A Antigen - COMP NASAL Point of Care Testing Pulse Oximetry Pulse Ox % 100 On: Room air Interpretation Interpreted by me, Pulse oximetry normal Time 1141 ECG #1 Interpretation Text/Dict Note EKG time 10:45 AM rate 151 sinus tach otherwise unremarkable Re-Evaluation MDM Re-Evaluation/Progress #1 Text/Dict Note Patient is extremely well-appearing. She already received Tylenol this morning so I explained to her that she can take another dose today. We will give her some Motrin now give her some fluids which should improve her tachycardia. Okay for discharge home if her vital signs improved and she remains looking so well. Time of Re-Eval 1142 Re-Eval Status Unchanged Patient Discharge Departure Vital Signs/Condition Vital Signs First Documented: Result Date Time Pulse Ox 97 03/14 1037 B/P 112/70 03/14 1037 B/P Mean 84 03/14 1037 O2 Delivery Room air 03/14 1037 Temp 101.0 03/14 1037 Pulse 130 03/14 1037 Resp 18 03/14 1037 Last Documented: Result Date Time Pulse Ox 98 03/14 1235 B/P 115/75 03/14 1235 B/P Mean 88 03/14 1235 O2 Delivery Room air 03/14 1235 Temp 98.4 03/14 1235 Pulse 99 03/14 1235 Resp 18 03/14 1235 All vital signs available at the time of this entry have been reviewed. Clinical Impression Clinical Impression Primary Impression: Fever Secondary Impressions: Malaise, Tachycardia Disposition Decision Discharge )( Discharged to Home Yes )( Time 1248 )( Date 03/14/20 Discharge/Care Plan Patient Instructions ED Bronchitis, No Antibiotic (Adult) Additional Instructions You were seen in the emergency room for fever and body aches. I am concerned that you could have Covid but you declined the testing. You need to self isolate for 10 to 14 days from the onset of your symptoms and for 2 days after your last fever. Please return for shortness of breath when you exert yourself neck stiffness rash confusion feeling like he may pass out or any other new or concerning symptoms. Departure Forms WORK/SCHOOL EXCUSE VARIABLE at 1118 at 1142 RPT #:[id number] END OF REPORT [facility] 2020-02-16 20:19:[address] [facility] ([facility]) EMERGENCY PROVIDER REPORT REPORT#:[id number] REPORT STATUS: Signed DATE:02/16/20 TIME: 2018 PATIENT: BRANDON ROLON UNIT #: [id number] ROOM/BED: AGE: 19 SEX: F PCP PHYS: No Primary or Family Physician SERVICE AUTHOR: Rajat Pastrana * ALL edits or amendments must be made on the electronic/computer document * HPI-URI/Cough/Cold General Confirmed Patient Yes Initial Greet Date/Time 02/16/20 185 Presentation Chief Complaint Cough, non-productive Hx Obtained From Patient Onset Occurred Days ago (2) Symptom Duration Waxes and wanes Progression since Onset Unchanged Context of Onset Exposure, infectious Location Chest (only with cough) Quality Aching Radiation Does not radiate Severity: Current Mild Associated with Reports: Chills, Cough, Headache, Rhinorrhea. Denies: Abdominal pain, Anorexia, Arthralgia, Body aches, Chest pain, Diarrhea, Ear pain/ache, Fever, Myalgia, Nausea, Neck pain, Rash, Shortness of breath, Sore throat, Sputum production, Vomiting. Free Text HPI Notes Free Text HPI Notes 19-year-old with past medical history of abnormal uterine and vaginal bleeding, cellulitis of the buttocks, nausea and vomiting, pharyngitis, dysuria, here with cough fever myalgia. States that she was exposed to a family member who tested positive for Covid denies nausea vomiting or diarrhea denies abdominal pain she endorses chest pain only with cough. Review of Systems Focused Review of Systems Constitutional Denies: Chills, Fever, Lethargy. Eyes Denies: Eye pain bilat, Redness bilat, Visual loss bilat. Ears/Nose/Throat Denies: Ear drainage bilat, Ear ringing bilat, Earache bilat, Hearing loss bilat , Nasal congestion, Nose bleeding, Sinus problem, Sore throat. Respiratory Denies: Cough, non-productive, Cough, productive, Shortness of breath. GI Denies: Abdominal pain, Diarrhea, Nausea, Vomiting. Skin Denies: Diaphoresis, Rash. Allergy/Immun Denies: Hives, Itching. Neurologic Denies: Change LOC, Dizziness, Focal weakness, Headache, Numbness, Slurred speech. Past Medical History - Adult Stated Complaint FLU LIKE SYMPTOMS Allergies Coded Allergies: No Known Allergies (02/02/20) Home Medications Reported Medications FEXOFENADINE (PAMELA ALLERGY) 180 MG PO DAILY ESCITALOPRAM (LEXAPRO) Review of Nursing Notes Rev avail, and agree Physical Exam Vital Signs Vital Signs First Documented: Result Date Time Pulse Ox 97 02/15 1843 B/P 129/85 02/15 1843 B/P Mean 99 02/15 1843 O2 Delivery Room air 02/15 1843 Temp 98.3 02/15 1843 Pulse 97 02/15 1843 Resp 16 02/15 1843 Last Documented: Result Date Time Pulse Ox 98 02/15 2130 B/P 121/89 02/15 2130 B/P Mean 99 02/15 2130 O2 Delivery Room air 02/15 2130 Temp 98.5 02/15 2130 Pulse 78 02/15 2130 Resp 16 02/15 2130 Review of Vital Signs Reviewed Focused PE General/Const General/Const Awake, Alert, Well appearing, Not toxic appearing Eyes Eyes PERRL Ears/Nose/Throat Ears/Nose/Throat Airway patent, Mucous membranes moist, Pharynx NL, Tympanic membs NL, Ext aud canal NL, Nose exam NL, No sinus tenderness MS Neck Neck Supple, No meningismus, Full range of motion, No adenopathy, No swelling , Non-tender Resp/Chest Respiratory/Chest Breath sounds NL, Breath sounds = bilat, No respiratory distress, No rales, No rhonchi, No wheezing, No retractions, No stridor Cardiovascular Cardiovascular Heart rate NL, Regular rhythm, Heart sounds NL, Peripheral circulation NL Abdomen/GI Abdomen/GI Soft, Non-tender, No guarding, No rebound Skin Skin Color NL, No rash, Warm, Dry, Turgor NL Neurologic Neurologic Oriented X3, Speech NL, No motor deficits, No sensory deficits Interpretation Diagnostics Point of Care Testing Pulse Oximetry Pulse Ox % 98 On: Room air Interpretation Interpreted by me, Pulse oximetry normal Time 2129 Re-Evaluation MDM ED Course Medication(s) Ordered Medication(s) Ordered: Antihistamine Drugs Sig/Ovidio Start time Last Medication Dose Route Stop Time Status Admin Diphenhydramine HCl 50 MG X1ED STA 02/15 2017 DC 02/15 IM 02/15 Gastrointestinal Drugs Sig/Ovidio Start time Last Medication Dose Route Stop Time Status Admin Metoclopramide HCl 10 MG X1ED STA 02/15 2017 DC IM 02/15 2018 Patient Discharge Departure Vital Signs/Condition Vital Signs First Documented: Result Date Time Pulse Ox 97 02/15 1843 B/P 129/85 02/15 1843 B/P Mean 99 02/15 1843 O2 Delivery Room air 02/15 1843 Temp 98.3 02/15 1843 Pulse 97 02/15 1843 Resp 16 02/15 1843 Last Documented: Result Date Time Pulse Ox 98 02/15 2130 B/P 121/89 02/15 2130 B/P Mean 99 02/15 2130 O2 Delivery Room air 02/15 2130 Temp 98.5 02/15 2130 Pulse 78 02/15 2130 Resp 16 11/20 2130 All vital signs available at the time of this entry have been reviewed. Clinical Impression Clinical Impression Primary Impression: Exposure to COVID-19 virus Disposition Decision Discharge )( Discharged to Home Yes )( Time 2132 )( Date 02/16/20 Discharge/Care Plan Counseled Regarding Diagnosis, Lab results (Auto) Prescriptions Current Visit Scripts ACETAMINOPHEN (TYLENOL) 500 MG PO Q4H PRN PRN PAIN ACETAMINOPHEN (TYLENOL) 500 MG PO Q4H PRN PRN PAIN #24 TABS ALBUTEROL (PROVENTIL HFA 90 MCG/ACT 6.7 GM) 1 PUFF INH RTQ4H ALBUTEROL (PROVENTIL HFA 90 MCG/ACT 6.7 GM) 1 PUFF INH RTQ4H #6.7 GM predniSONE 20 MG PO BID predniSONE 20 MG PO BID #20 TABS Patient Instructions COVID-19 Home Care Referrals [facility] Departure Forms WORK/SCHOOL EXCUSE VARIABLE Advance Care Planning Documents Reviewed With patient Face Time 16-30 minutes at 1755 RPT #:[id number] END OF REPORT [facility] 2020-02-16 20:19:[address] [facility] ([facility]) EMERGENCY PROVIDER REPORT REPORT#:[id number] REPORT STATUS: Signed DATE:02/16/20 TIME: 2019 PATIENT: BRANDON ROLON UNIT #: [id number] ROOM/BED: AGE: 19 SEX: F PCP PHYS: No Primary or Family Physician SERVICE AUTHOR: Rajat Pastrana * ALL edits or amendments must be made on the electronic/computer document * Rajat Pastrana 02/16/20 2019: HPI-URI/Cough/Cold General Confirmed Patient Yes Presentation Chief Complaint Cough, non-productive Hx Obtained From Patient Onset Occurred Days ago (2) Symptom Duration Waxes and wanes Progression since Onset Unchanged Context of Onset Exposure, infectious Location Chest (only with cough) Quality Aching Radiation Does not radiate Severity: Current Mild Associated with Reports: Chills, Cough, Headache, Rhinorrhea. Denies: Abdominal pain, Anorexia, Arthralgia, Body aches, Chest pain, Diarrhea, Ear pain/ache, Fever, Myalgia, Nausea, Neck pain, Rash, Shortness of breath, Sore throat, Sputum production, Vomiting. Free Text HPI Notes Free Text HPI Notes 19-year-old with past medical history of abnormal uterine and vaginal bleeding, cellulitis of the buttocks, nausea and vomiting, pharyngitis, dysuria, here with cough fever myalgia. States that she was exposed to a family member who tested positive for Covid denies nausea vomiting or diarrhea denies abdominal pain she endorses chest pain only with cough. Review of Systems Focused Review of Systems Constitutional Denies: Chills, Fever, Lethargy. Eyes Denies: Eye pain bilat, Redness bilat, Visual loss bilat. Ears/Nose/Throat Denies: Ear drainage bilat, Ear ringing bilat, Earache bilat, Hearing loss bilat , Nasal congestion, Nose bleeding, Sinus problem, Sore throat. Respiratory Denies: Cough, non-productive, Cough, productive, Shortness of breath. GI Denies: Abdominal pain, Diarrhea, Nausea, Vomiting. Skin Denies: Diaphoresis, Rash. Allergy/Immun Denies: Hives, Itching. Neurologic Denies: Change LOC, Dizziness, Focal weakness, Headache, Numbness, Slurred speech. Past Medical History - Adult Stated Complaint FLU LIKE SYMPTOMS Allergies Coded Allergies: No Known Allergies (02/02/20) Home Medications Reported Medications FEXOFENADINE (PAMELA ALLERGY) 180 MG PO DAILY ESCITALOPRAM (LEXAPRO) Review of Nursing Notes Rev avail, and agree Physical Exam Vital Signs Vital Signs First Documented: Result Date Time Pulse Ox 97 02/15 1843 B/P 129/85 02/15 1843 B/P Mean 99 02/15 1843 O2 Delivery Room air 02/15 1843 Temp 36.8 02/15 1843 Pulse 97 02/15 1843 Resp 16 02/15 1843 Last Documented: Result Date Time Pulse Ox 98 02/15 2130 B/P 121/89 02/15 2130 B/P Mean 99 02/15 2130 O2 Delivery Room air 02/15 2130 Temp 36.9 02/15 2130 Pulse 78 02/15 2130 Resp 16 02/15 2130 Review of Vital Signs Reviewed Focused PE General/Const General/Const Awake, Alert, Well appearing, Not toxic appearing Eyes Eyes PERRL Ears/Nose/Throat Ears/Nose/Throat Airway patent, Mucous membranes moist, Pharynx NL, Tympanic membs NL, Ext aud canal NL, Nose exam NL, No sinus tenderness MS Neck Neck Supple, No meningismus, Full range of motion, No adenopathy, No swelling , Non-tender Resp/Chest Respiratory/Chest Breath sounds NL, Breath sounds = bilat, No respiratory distress, No rales, No rhonchi, No wheezing, No retractions, No stridor Cardiovascular Cardiovascular Heart rate NL, Regular rhythm, Heart sounds NL, Peripheral circulation NL Abdomen/GI Abdomen/GI Soft, Non-tender, No guarding, No rebound Skin Skin Color NL, No rash, Warm, Dry, Turgor NL Neurologic Neurologic Oriented X3, Speech NL, No motor deficits, No sensory deficits Interpretation Diagnostics Point of Care Testing Pulse Oximetry Pulse Ox % 98 On: Room air Interpretation Interpreted by me, Pulse oximetry normal Time 2129 Re-Evaluation MDM ED Course Medication(s) Ordered Medication(s) Ordered: Antihistamine Drugs Sig/Ovidio Start time Last Medication Dose Route Stop Time Status Admin Diphenhydramine HCl 50 MG X1ED STA 02/15 2017 DC 02/15 IM 02/15 Gastrointestinal Drugs Sig/Ovidio Start time Last Medication Dose Route Stop Time Status Admin Metoclopramide HCl 10 MG X1ED STA 02/15 2017 DC IM 02/15 2018 Patient Discharge Departure Vital Signs/Condition Vital Signs First Documented: Result Date Time Pulse Ox 97 02/15 1843 B/P 129/85 02/15 1843 B/P Mean 99 02/15 1843 O2 Delivery Room air 02/15 1843 Temp 36.8 02/15 1843 Pulse 97 02/15 1843 Resp 16 02/15 1843 Last Documented: Result Date Time Pulse Ox 98 02/15 2130 B/P 121/89 02/15 2130 B/P Mean 99 02/15 2130 O2 Delivery Room air 02/15 2130 Temp 36.9 02/15 2130 Pulse 78 02/15 2130 Resp 16 02/15 2130 All vital signs available at the time of this entry have been reviewed. Clinical Impression Clinical Impression Primary Impression: Exposure to COVID-19 virus Disposition Decision Discharge )( Discharged to Home Yes )( Time 2132 )( Date 02/16/20 Discharge/Care Plan Counseled Regarding Diagnosis, Lab results (Auto) Prescriptions Current Visit Scripts ACETAMINOPHEN (TYLENOL) 500 MG PO Q4H PRN PRN PAIN ACETAMINOPHEN (TYLENOL) 500 MG PO Q4H PRN PRN PAIN #24 TABS ALBUTEROL (PROVENTIL HFA 90 MCG/ACT 6.7 GM) 1 PUFF INH RTQ4H ALBUTEROL (PROVENTIL HFA 90 MCG/ACT 6.7 GM) 1 PUFF INH RTQ4H #6.7 GM predniSONE 20 MG PO BID predniSONE 20 MG PO BID #20 TABS Patient Instructions COVID-19 Home Care Referrals [facility] Departure Forms WORK/SCHOOL EXCUSE VARIABLE Advance Care Planning Documents Reviewed With patient Face Time 16-30 minutes Jez Brown 02/20/20 0931: HPI-URI/Cough/Cold General Initial Greet Date/Time 02/16/20 1859 Interpretation Diagnostics Lab Results Interpretation Results Laboratory Tests: 02/15 2038 Serology SARS-CoV-2 (PCR) (Not Detected) Not Detected Patient Discharge Departure Supervising Physician Note MidLv Saw Pt Alone I have reviewed the PA/JOB ORDER CLERK's note and plan of care. I was available for consultation as needed at all times during the patient's visit in the emergency department. I agree with the clinical impression, plan and disposition. at 1755 at 0931 RPT #:[id number] END OF REPORT [facility] 2020-02-02 15:45:[address] [facility] ([facility]) EMERGENCY PROVIDER REPORT REPORT#:[id number] REPORT STATUS: Signed DATE:02/02/20 TIME: 1545 PATIENT: BRANDON ROLON UNIT #: [id number] ROOM/BED: AGE: 19 SEX: F PCP PHYS: No Primary or Family Physician SERVICE AUTHOR: Kt Scales MD * ALL edits or amendments must be made on the electronic/computer document * HPI- Female General Initial Greet Date/Time 02/02/20 1435 Presentation Chief Complaint Pelvic pain, Vaginal bleeding )( Sudden in Onset? No Free Text HPI Notes Free Text HPI Notes 19-year-old female who is presenting because of her 1 month history of pelvic pain and bleeding. She started her period about a month ago and it stayed steady for 2 weeks and she has been spotting on and off and bleeding on and off. She describes pain on both sides above her ovaries with more so on the right side. Laying flat makes it better but leaning forward makes it worse. No fever chills. Pain is moderate in intensity. Described as pain. No urinary symptoms. No nausea vomiting. She never had this before but she does have irregular periods and she is sexually active. Risk- Female Risk Stratification Ectopic Risk factors reviewed Review of Systems ROS Statements All systems rev neg except as marked. Basic Review of Systems Basic ROS EYES: No redness, RESP: No SOB, CV: No chest pain, HEM: No bleeding/ bruising, PSYCH: NL thought content Focused Review of Systems Constitutional Reports: Weakness - generalized. Denies: Chills, Fatigue, Fever, Lethargy, Malaise, Recent wt loss. Ears/Nose/Throat Denies: Ear drainage R, Ear drainage L, Ear drainage bilat, Ear ringing R, Ear ringing L, Ear ringing bilat, Earache R, Earache L, Earache bilat, Hearing loss R, Hearing loss L, Hearing loss bilat, Mouth pain, Nasal congestion, Nose bleeding, Sinus problem, Sore throat, Throat pain, Throat swelling, Tongue pain, Tongue swelling, Toothache, Voice change. GI Denies: Abdominal pain, Anorexia, Belching, Bloody/tarry stool, Constipation, Diarrhea, Dysphagia, Hematemesis, Hematochezia, Mucousy stool, Melena, Nausea, Rectal pain, Vomiting. Musculoskeletal Denies: Back pain, Extremity pain, Extremity swelling, Joint pain, Joint swelling, Lumbar pain, Myalgia, Neck pain, Thoracic pain. Endocrine Denies: Cold intolerance, Heat intolerance, Polydipsia, Polyphagia, Polyuria, Weight gain, Weight loss. Skin Denies: Abrasion, Abscess, Burn, Contusion, Diaphoresis, Erythema, Itching, Jaundice, Laceration, Rash, Swelling, Ulceration. Past Medical History - Adult Stated Complaint VAGINAL BLEEDING/LOWER ABDOMINAL PAIN Allergies Coded Allergies: No Known Allergies (02/02/20) Home Medications Discontinued Scripts ACETAMINOPHEN/CODEINE (TYLENOL WITH CODEINE #3 300/30 MG) 1 TAB PO Q4H PRN PRN ACUTE PAIN ACETAMINOPHEN/CODEINE (TYLENOL WITH CODEINE #3 300/30 MG) 1 TAB PO Q4H PRN PRN ACUTE PAIN #15 TABS Prov: 12/30/19 DC: 02/02/20 1630 Therapy completed IBUPROFEN (MOTRIN) 600 MG PO QID PRN PRN PAIN IBUPROFEN (MOTRIN) 600 MG PO QID PRN PRN PAIN #30 TABS Prov: 12/30/19 DC: 02/02/20 1630 Patient stopped taking Reported Medications FEXOFENADINE (PAMELA ALLERGY) 180 MG PO DAILY ESCITALOPRAM (LEXAPRO) Past Medical History: Reports: Depression/mood disorder. Additional Medical History Obesity Additional Surgical History Adenoidectomy. Alcohol Use Alcohol use Smoking status for patients 13 years old or older: Current every day smoker Physical Exam Vital Signs Vital Signs First Documented: Result Date Time Pulse Ox 98 11 1431 B/P 116/72 / 1431 B/P Mean 86 02/01 1431 O2 Delivery Room air 02/01 1431 Temp 96.8 02/01 1431 Pulse 130 02/01 1431 Resp 22 02/01 1431 Last Documented: Result Date Time Pulse Ox 98 02/01 1431 B/P 116/72 02/01 1431 B/P Mean 86 02/01 1431 O2 Delivery Room air 02/01 1431 Temp 96.8 02/01 1431 Pulse 130 02/01 1431 Resp 22 02/01 1431 Review of Vital Signs Reviewed Basic Physical Exam Basic PE GEN: Well appearing/NAD, HEAD: Atraumatic/NC, EYES: PERRL, conj clear, ENT: Membranes moist, NECK: Supple, RESP: No resp distress, ABD: Soft/non-tender , EXT: No gross abnormality, SKIN: No rashes, warm/dry, NEURO: alert oriented, NEURO: gross movement NL, PSYCH: NL thought content Focused PE Cardiovascular Cardiovascular Regular rhythm, Heart sounds NL, No gallop, No murmurs, No rubs, Cap refill not delayed, Peripheral circulation NL, Pulses = bilaterally, No gross BP differential Heart Rate/Rhythm Tachycardia. Genitourinary General Exam deferred Interpretation Diagnostics Lab Results Interpretation Results Laboratory Tests 02/02/20 153: [Embedded Image Not Available] Laboratory Tests: 02/01 1530 Chemistry Sodium (133 - 144 mmol/L) 138.0 Potassium (3.5 - 5.1 mmol/L) 3.7 Chloride (95 - 105 mmol/L) 107 H Carbon Dioxide (21 - 32 mmol/L) 27 Anion Gap (4.0 - 15.0 GAP calc) 4.0 BUN (7 - 18 MG/DL) 13 Creatinine (0.55 - 1.30 MG/DL) 0.91 Glucose (70 - 110 MG/DL) 97 Calcium (8.5 - 10.1 MG/DL) 9.5 Total Bilirubin (0.00 - 1.00 MG/DL) 0.39 Direct Bilirubin (0.00 - 0.30 MG/DL) 0.13 Indirect Bilirubin (0.2 - 1.3 MG/DL) 0.26 AST (15 - 37 Unit/L) 26 ALT (12 - 78 Unit/L) 43 Total Alk Phosphatase (45 - 117 Unit/L) 64 Troponin I (0.000 - 0.045 NG/ML) < 0.015 Total Protein (6.4 - 8.2 G/DL) 7.6 Albumin (3.4 - 5.0 G/DL) 3.9 Lipase (114 - 286 Unit/L) 112 L Specimen Appearance (1 NORMAL Index/DL) 1 NORMAL <2 MG Specimen Hemolysis (1 NORMAL Index/DL) 1 NORMAL <10 MG Coagulation PT (9.4 - 12.5 SECONDS) 12.8 H INR (0.88 - 1.13 INR Unit) 1.12 PTT ([place]) (24 - 37.7 SECONDS) 29.7 Hematology WBC (4.1 - 12.1 K/mm3) 8.2 RBC (3.8 - 5.5 M/mm3) 4.51 Hgb (10.6 - 15.8 G/DL) 13.5 Hct (31.8 - 47.4 %) 38.3 MCV (80.1 - 101.1 fL) 84.9 MCH (25.3 - 35.3 pg) 29.9 MCHC (32.7 - 35.1 G/DL) 35.2 H RDW (12.2 - 16.4 %) 12.4 Plt Count (155 - 337 K/mm3) 301 MPV (6.8 - 11.2 fL) 10.1 Miscellaneous Maternal Serum HCG (0 - 3 mi-IU/ML) <1 Urines Urine Color (YELLOW DESCRIPT) YELLOW Urine Appearance (CLEAR DESCRIPT) CLEAR Urine pH (4.6 - 8.0 pH UNITS) 6.5 Ur Specific [place] (1.001 - 1.035 SG) 1.036 H Urine Protein (<30 (1+) mg/dL) 30 (1+) H Urine Glucose (UA) (0 (NORMAL) mg/dL) NORMAL (0) Urine Ketones ((NEG) 0 mg/dL) TRACE Urine Blood (0 (NEG) mg/dL) NEGATIVE (0.00) Urine Nitrite (NEG SCREEN) NEGATIVE (0) Urine Bilirubin ((NEG) 0 mg/dL) NEGATIVE (0.0) Urine Urobilinogen (<2.0 (1+) mg/Dl) NORMAL (0) Ur Leukocyte Esterase ((NEG) 0 Leuk/mcL) 75 H Urine RBC (0 - 3 #RBC/HPF) 0-3 Urine WBC (0 - 3 #WBC/HPF) 0-3 Ur Squamous Epith Cells (NONE - SQepi /UL) FEW >2 Urine Mucus (NONE /LPF) RARE Recent Impressions: ULTRASOUND - US TRANSVAGINAL NON OB 02/01 1445 Report Impression - Status: SIGNED Entered: 02/02/2020 1548 IMPRESSION: Nonvisualization of the left ovary Otherwise, unremarkable pelvic ultrasound Impression By: DeboraAGIram - Keysha Rodríguez MD Re-Evaluation MDM Free Text MDM Notes Free Text MDM Notes Discussed with the patient. She has irregular vaginal bleeding. 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 No evidence of anemia or . Heart rate improved ED Course Medication(s) Ordered Medication(s) Ordered: Electrolytic, Caloric, And Ken Sig/Ovidio Start time Last Medication Dose Route Stop Time Status Admin Sodium Chloride 1,000 ML X1ED STA 02/01 1436 DC IV 02/01 1535 Patient Discharge Departure Vital Signs/Condition Vital Signs First Documented: Result Date Time Pulse Ox 98 02/01 1431 B/P 116/72 02/01 1431 B/P Mean 86 02/01 1431 O2 Delivery Room air 02/01 143 Temp 96.8 02/01 143 Pulse 130 02/01 1431 Resp 22 02/01 143 Last Documented: Result Date Time Pulse Ox 98 02/01 1431 B/P 116/72 02/01 1431 B/P Mean 86 02/01 1431 O2 Delivery Room air 02/01 1431 Temp 96.8 02/01 143 Pulse 130 02/01 1431 Resp 22 02/01 143 All vital signs available at the time of this entry have been reviewed. Condition Stable Clinical Impression Clinical Impression Primary Impression: Vaginal bleeding Disposition Decision Discharge )( Discharged to Home Yes )( Time 1703 )( Date 02/02/20 Discharge/Care Plan Patient Instructions ED Bleed Irregular Vaginal at 1628 RPT #:[id number] END OF REPORT [facility] 2019-12-30 20:06:[address] [facility] ([facility]) EMERGENCY PROVIDER REPORT REPORT#:[id number] REPORT STATUS: Signed DATE:12/30/19 TIME: 2005 PATIENT: BRANDON ROLON UNIT #: [id number] ROOM/BED: AGE: 19 SEX: F PCP PHYS: No Primary or Family Physician SERVICE AUTHOR: Gil Dailey JOB ORDER CLERK * ALL edits or amendments must be made on the electronic/computer document * HPI-Hand Prob/Inj General Confirmed Patient Yes Patient Type New patient Initial Greet Date/Time 12/30/191957 Presentation Chief Complaint Finger injury L, Finger pain L Location: Left Hand Finger Severity: Current Moderate Free Text HPI Notes Free Text HPI Notes 83-year-old female presents the ED for complaint of injury to her left fourth finger. Patient states she hit her finger which then dislocated. Manipulated by patient prior to arrival. Continued pain and swelling to the entire left fourth finger, slight ecchymosis. Review of Systems ROS Statements All systems rev neg except as marked. Focused Review of Systems Musculoskeletal Reports: Extremity pain, Extremity swelling. Skin Denies: Abrasion, Laceration. Past Medical History - Adult Stated Complaint LEFT RING FINGER INJURY Allergies Coded Allergies: No Known Allergies (12/30/19) Home Medications Reported Medications FEXOFENADINE (PAMELA ALLERGY) 180 MG PO DAILY ESCITALOPRAM (LEXAPRO) Past Medical History: Reports: Depression/mood disorder. Additional Surgical History Adenoidectomy. Smoking status for patients 13 years old or older: Unknown,if ever smoked Ambulatory Status Independent Physical Exam Vital Signs Vital Signs First Documented: Result Date Time Pulse Ox 97 12/29 1952 B/P 119/65 12/29 1952 B/P Mean 83 12/29 1952 O2 Delivery Room air 12/29 1952 Temp 36.8 12/29 1952 Pulse 107 12/29 1952 Resp 18 12/29 1952 Last Documented: Result Date Time Pulse Ox 99 12/29 2049 B/P 122/64 12/29 2049 B/P Mean 83 12/29 2049 Temp 36.8 12/29 2049 Pulse 78 12/29 2049 Resp 18 12/29 2049 O2 Delivery Room air 12/29 1952 Review of Vital Signs Reviewed Focused PE General/Const General/Const Awake, Alert, Well appearing MS Wrist/Hand Finger Exam #1 Finger name (LEFT 4TH), Swelling present, Tenderness present. Negative: Tendon injury extensor, Tendon injury flexor, Deformity present, Open fracture present, Neuro deficit present. Skin Skin Color NL, Warm, Dry, Intact, Turgor NL, No swelling Neurologic Neurologic Oriented X3, Speech NL, No motor deficits, No sensory deficits Interpretation Diagnostics Lab Results Interpretation Results Recent Impressions: RADIOLOGY - XR FINGER(S) 2+V LT 12/29 2016 Report Impression - Status: SIGNED Entered: 12/30/20192031 IMPRESSION: Acute, dorsally displaced avulsion fracture at the base of the 4th distal phalanx. Impression By: [email or web address] - Lety Stein MD Imaging Statement Radiographic studies reviewed and considered in the medical decision-making. Re-Evaluation MDM Re-Evaluation/Progress Re-Evaluation/Progress Text/Dict Note Avulsion fracture of the base of the fourth distal phalanx. Discussed results, plan for discharge, placed in finger splint. Encouraged follow-up with Ortho hand with referral provided to Dr. Velazquez. Patient Discharge Departure Vital Signs/Condition Vital Signs First Documented: Result Date Time Pulse Ox 97 12/29 1952 B/P 119/65 12/29 1952 B/P Mean 83 12/29 1952 O2 Delivery Room air 12/29 1952 Temp 36.8 12/29 1952 Pulse 107 12/29 1952 Resp 18 12/29 1952 Last Documented: Result Date Time Pulse Ox 99 12/29 2049 B/P 122/64 12/29 2049 B/P Mean 83 12/29 2049 Temp 36.8 12/29 2049 Pulse 78 12/29 2049 Resp 18 12/29 2049 O2 Delivery Room air 12/29 1952 All vital signs available at the time of this entry have been reviewed. Condition Stable Clinical Impression Clinical Impression Primary Impression: Finger fracture, left Disposition Decision Discharge )( Discharged to Home Yes )( Time 2054 )( Date 12/30/19 Discharge/Care Plan Counseled Regarding Diagnosis, Imaging studies, Need for follow-up, When to return to ED (Auto) Prescriptions Current Visit Scripts ACETAMINOPHEN/CODEINE (TYLENOL WITH CODEINE #3 300/30 MG) 1 TAB PO Q4H PRN PRN ACUTE PAIN ACETAMINOPHEN/CODEINE (TYLENOL WITH CODEINE #3 300/30 MG) 1 TAB PO Q4H PRN PRN ACUTE PAIN #15 TABS IBUPROFEN (MOTRIN) 600 MG PO QID PRN PRN PAIN IBUPROFEN (MOTRIN) 600 MG PO QID PRN PRN PAIN #30 TABS Patient Instructions ED Fracture, Finger, Closed Referrals Richy Velazquez MD Departure Forms WORK/SCHOOL EXCUSE Discharge Note I have spoken with the patient and/or caregivers. I have explained the patient's condition, diagnoses and treatment plan based on the information available to me at this time. I have answered the patient's and/or caregiver's questions and addressed any concerns. The patient and/or caregivers have as good an understanding of the patient's diagnosis, condition and treatment plan as can be expected at this point. The vital signs have been stable. The patient's condition is stable and appropriate for discharge from the emergency department. The patient will pursue further outpatient evaluation with the primary care physician or other designated or consulting physician as outlined in the discharge instructions. The patient and/or caregivers are agreeable to this plan of care and follow-up instructions have been explained in detail. The patient and/or caregivers have received these instructions in written format and have expressed an understanding of the discharge instructions. The patient and/or caregivers are aware that any significant change in condition or worsening of symptoms should prompt an immediate return to this or the closest emergency department or a call to 911. Quality Measures BP F/U for HTN BP in normal range at 2212 RPT #:[id number] END OF REPORT [facility] 2019-12-30 20:06:[address] [facility] ([facility]) EMERGENCY PROVIDER REPORT REPORT#:[id number] REPORT STATUS: Signed DATE:12/30/19 TIME: 2005 PATIENT: BRANDON ROLON UNIT #: [id number] ROOM/BED: AGE: 19 SEX: F PCP PHYS: No Primary or Family Physician SERVICE AUTHOR: Gil Dailey JOB ORDER CLERK * ALL edits or amendments must be made on the electronic/computer document * Gil Dailey 12/30/19 2006: HPI-Hand Prob/Inj General Confirmed Patient Yes Patient Type New patient Presentation Chief Complaint Finger injury L, Finger pain L Location: Left Hand Finger Severity: Current Moderate Free Text HPI Notes Free Text HPI Notes 83-year-old female presents the ED for complaint of injury to her left fourth finger. Patient states she hit her finger which then dislocated. Manipulated by patient prior to arrival. Continued pain and swelling to the entire left fourth finger, slight ecchymosis. Review of Systems ROS Statements All systems rev neg except as marked. Focused Review of Systems Musculoskeletal Reports: Extremity pain, Extremity swelling. Skin Denies: Abrasion, Laceration. Past Medical History - Adult Stated Complaint LEFT RING FINGER INJURY Allergies Coded Allergies: No Known Allergies (12/30/19) Home Medications Reported Medications FEXOFENADINE (PAMELA ALLERGY) 180 MG PO DAILY ESCITALOPRAM (LEXAPRO) Past Medical History: Reports: Depression/mood disorder. Additional Surgical History Adenoidectomy. Smoking status for patients 13 years old or older: Unknown,if ever smoked Ambulatory Status Independent Physical Exam Vital Signs Vital Signs First Documented: Result Date Time Pulse Ox 97 12/29 1952 B/P 119/65 12/29 1952 B/P Mean 83 12/29 1952 O2 Delivery Room air 12/29 1952 Temp 98.3 12/29 1952 Pulse 107 12/29 1952 Resp 18 12/29 1952 Last Documented: Result Date Time Pulse Ox 99 12/29 2049 B/P 122/64 12/29 2049 B/P Mean 83 12/29 2049 Temp 98.2 12/29 2049 Pulse 78 12/29 2049 Resp 18 12/29 2049 O2 Delivery Room air 12/29 1952 Review of Vital Signs Reviewed Focused PE General/Const General/Const Awake, Alert, Well appearing MS Wrist/Hand Finger Exam #1 Finger name (LEFT 4TH), Swelling present, Tenderness present. Negative: Tendon injury extensor, Tendon injury flexor, Deformity present, Open fracture present, Neuro deficit present. Skin Skin Color NL, Warm, Dry, Intact, Turgor NL, No swelling Neurologic Neurologic Oriented X3, Speech NL, No motor deficits, No sensory deficits Interpretation Diagnostics Lab Results Interpretation Results Recent Impressions: RADIOLOGY - XR FINGER(S) 2+V LT 12/29 2016 Report Impression - Status: SIGNED Entered: 12/30/20192031 IMPRESSION: Acute, dorsally displaced avulsion fracture at the base of the 4th distal phalanx. Impression By: [email or web address] - Lety Stein MD Imaging Statement Radiographic studies reviewed and considered in the medical decision-making. Re-Evaluation MDM Re-Evaluation/Progress Re-Evaluation/Progress Text/Dict Note Avulsion fracture of the base of the fourth distal phalanx. Discussed results, plan for discharge, placed in finger splint. Encouraged follow-up with Ortho hand with referral provided to Dr. Velazquez. Patient Discharge Departure Vital Signs/Condition Vital Signs First Documented: Result Date Time Pulse Ox 97 12/29 1952 B/P 119/65 12/29 1952 B/P Mean 83 12/29 1952 O2 Delivery Room air 12/29 1952 Temp 98.3 12/29 1952 Pulse 107 12/29 1952 Resp 18 12/29 1952 Last Documented: Result Date Time Pulse Ox 99 12/29 2049 B/P 122/64 12/29 2049 B/P Mean 83 12/29 2049 Temp 98.2 12/29 2049 Pulse 78 12/29 2049 Resp 18 12/29 2049 O2 Delivery Room air 12/29 1952 All vital signs available at the time of this entry have been reviewed. Condition Stable Clinical Impression Clinical Impression Primary Impression: Finger fracture, left Disposition Decision Discharge )( Discharged to Home Yes )( Time 2054 )( Date 12/30/19 Discharge/Care Plan Counseled Regarding Diagnosis, Imaging studies, Need for follow-up, When to return to ED (Auto) Prescriptions Current Visit Scripts ACETAMINOPHEN/CODEINE (TYLENOL WITH CODEINE #3 300/30 MG) 1 TAB PO Q4H PRN PRN ACUTE PAIN ACETAMINOPHEN/CODEINE (TYLENOL WITH CODEINE #3 300/30 MG) 1 TAB PO Q4H PRN PRN ACUTE PAIN #15 TABS IBUPROFEN (MOTRIN) 600 MG PO QID PRN PRN PAIN IBUPROFEN (MOTRIN) 600 MG PO QID PRN PRN PAIN #30 TABS Patient Instructions ED Fracture, Finger, Closed Referrals Richy Velazquez MD Departure Forms WORK/SCHOOL EXCUSE Discharge Note I have spoken with the patient and/or caregivers. I have explained the patient's condition, diagnoses and treatment plan based on the information available to me at this time. I have answered the patient's and/or caregiver's questions and addressed any concerns. The patient and/or caregivers have as good an understanding of the patient's diagnosis, condition and treatment plan as can be expected at this point. The vital signs have been stable. The patient's condition is stable and appropriate for discharge from the emergency department. The patient will pursue further outpatient evaluation with the primary care physician or other designated or consulting physician as outlined in the discharge instructions. The patient and/or caregivers are agreeable to this plan of care and follow-up instructions have been explained in detail. The patient and/or caregivers have received these instructions in written format and have expressed an understanding of the discharge instructions. The patient and/or caregivers are aware that any significant change in condition or worsening of symptoms should prompt an immediate return to this or the closest emergency department or a call to 911. Quality Measures BP F/U for HTN BP in normal range Perry Ortiz 12/31/19 1609: HPI-Hand Prob/Inj General Initial Greet Date/Time 12/30/191957 Patient Discharge Departure Supervising Physician Note MidLv Saw Pt Alone I have reviewed the PA/JOB ORDER CLERK's note and plan of care. I was available for consultation as needed at all times during the patient's visit in the emergency department. I agree with the clinical impression, plan and disposition. at 5192 at 1606 RPT #:[id number] END OF REPORT [facility] 2019-12-10 15:19:[address] [facility] ([facility]) EMERGENCY PROVIDER REPORT REPORT#:[id number] REPORT STATUS: Signed DATE:12/10/19 TIME: 1519 PATIENT: BRANDON ROLON UNIT #: [id number] ROOM/BED: AGE: 19 SEX: F PCP PHYS: No Primary or Family Physician SERVICE AUTHOR: Agatha Hernandez * ALL edits or amendments must be made on the electronic/computer document * HPI-Rash/Abscess/Cellulitis General Confirmed Patient Yes Patient Type New patient Initial Greet Date/Time 12/10/19 1509 Presentation Chief Complaint "tailbone pain" Hx Obtained From Patient Onset Occurred 1 month Progression since Onset Gradually worsening Location Buttock Quality Painful Severity: Onset Mild Severity: Current Mild Associated with Denies: Abdominal pain, Fever, Joint pain, Myalgia, Red streaking, Shaking chills, Vomiting. Context Recent Healthcare No recent doctor visit, No recent hospitalization Free Text HPI Notes Free Text HPI Notes Patient is a 19-year-old female who presents to ER with complaint of "tailbone pain" gradually for the past 1 month. She denies any injury or fall. Patient denies any known swelling or drainage from the site. She states normal bowel movements, denies rectal involvement. Denies any fever. Review of Systems ROS Statements All systems rev neg except as marked. Focused Review of Systems Constitutional Denies: Fever. Musculoskeletal Reports: Back pain. Skin Denies: Erythema, Swelling. Past Medical History - Adult Stated Complaint "TAIL BONE HURTS" Allergies Coded Allergies: No Known Allergies (12/10/19) Home Medications Reported Medications FEXOFENADINE (PAMELA ALLERGY) 180 MG PO DAILY ESCITALOPRAM (LEXAPRO) Review of Nursing Notes Not reviewed nurse notes Past Medical History: Reports: Depression/mood disorder. Additional Surgical History Adenoidectomy. Smoking status for patients 13 years old or older: Current every day smoker Physical Exam Vital Signs Vital Signs First Documented: Result Date Time Pulse Ox 98 12/09 1501 B/P 133/82 12/09 1501 B/P Mean 99 12/09 1501 Temp 97.8 12/09 1501 Pulse 96 12/09 1501 Resp 16 12/09 1501 Last Documented: Result Date Time Pulse Ox 98 12/09 1501 B/P 133/82 12/09 1501 B/P Mean 99 12/09 1501 Temp 97.8 12/09 1501 Pulse 96 12/09 1501 Resp 16 12/09 1501 Review of Vital Signs Reviewed Basic Physical Exam Basic PE HEAD: Atraumatic/NC, EYES: PERRL, conj clear, ENT: Membranes moist, NECK: Supple, RESP: No resp distress, CV: Reg rate rhythm, ABD: Soft/non- tender, EXT: No gross abnormality, NEURO: alert oriented, NEURO: gross movement NL, PSYCH: NL thought content Focused PE Skin Text/Dict Notes At the top of the cleft of the buttocks there is erythema, warmth, tenderness. There is no pilonidal, no swelling or abscess formation. Additional PE MS Back Back Atraumatic, Inspection NL, Full range of motion, No midline vertebral tend, No paraspinal tenderness Interpretation Diagnostics Point of Care Testing Pulse Oximetry Pulse Ox % 98 On: Room air Interpretation Interpreted by me, Pulse oximetry normal Time 1524 Re-Evaluation MDM Re-Evaluation/Progress Re-Evaluation/Progress Text/Dict Note PE reveals cellulitis without signs of abscess or systemic illness. Will prescribe p.o. Keflex. Instructed follow-up with PCP in 48 hours for wound check. Educated on return to ED criteria. Patient agreed and acknowledged understanding of plan. Time of Re-Eval 1525 ED Course Time 1525 Patient Course Stable Safety Concerns Patient is safe Patient Discharge Departure Vital Signs/Condition Vital Signs First Documented: Result Date Time Pulse Ox 98 12/09 1501 B/P 133/82 12/09 1501 B/P Mean 99 12/09 1501 Temp 97.8 12/09 1501 Pulse 96 12/09 1501 Resp 16 12/09 1501 Last Documented: Result Date Time Pulse Ox 98 12/09 1501 B/P 133/82 12/09 1501 B/P Mean 99 12/09 1501 Temp 97.8 12/09 1501 Pulse 96 12/09 1501 Resp 16 12/09 1501 All vital signs available at the time of this entry have been reviewed. Condition Stable Clinical Impression Clinical Impression Primary Impression: Cellulitis of buttock Disposition Decision Discharge )( Discharged to Home Yes )( Time 1526 )( Date 12/10/19 Discharge/Care Plan Counseled Regarding Diagnosis, Prescriptions, Need for follow-up, When to return to ED Prescriptions Reviewed Risks, Benefits, Alternative treatment Referrals [facility] Discharge Note I have spoken with the patient and/or caregivers. I have explained the patient's condition, diagnoses and treatment plan based on the information available to me at this time. I have answered the patient's and/or caregiver's questions and addressed any concerns. The patient and/or caregivers have as good an understanding of the patient's diagnosis, condition and treatment plan as can be expected at this point. The vital signs have been stable. The patient's condition is stable and appropriate for discharge from the emergency department. The patient will pursue further outpatient evaluation with the primary care physician or other designated or consulting physician as outlined in the discharge instructions. The patient and/or caregivers are agreeable to this plan of care and follow-up instructions have been explained in detail. The patient and/or caregivers have received these instructions in written format and have expressed an understanding of the discharge instructions. The patient and/or caregivers are aware that any significant change in condition or worsening of symptoms should prompt an immediate return to this or the closest emergency department or a call to 911. at 2240 RPT #:[id number] END OF REPORT [facility] 2019-12-10 15:19:[address] [facility] ([facility]) EMERGENCY PROVIDER REPORT REPORT#:[id number] REPORT STATUS: Signed DATE:12/10/19 TIME: 1518 PATIENT: BRANDON ROLON UNIT #: [id number] ROOM/BED: AGE: 19 SEX: F PCP PHYS: No Primary or Family Physician SERVICE AUTHOR: Agatha Hernandez * ALL edits or amendments must be made on the electronic/computer document * Agatha Hernandez 12/10/19 1519: HPI-Rash/Abscess/Cellulitis General Confirmed Patient Yes Patient Type New patient Presentation Chief Complaint "tailbone pain" Hx Obtained From Patient Onset Occurred 1 month Progression since Onset Gradually worsening Location Buttock Quality Painful Severity: Onset Mild Severity: Current Mild Associated with Denies: Abdominal pain, Fever, Joint pain, Myalgia, Red streaking, Shaking chills, Vomiting. Context Recent Healthcare No recent doctor visit, No recent hospitalization Free Text HPI Notes Free Text HPI Notes Patient is a 19-year-old female who presents to ER with complaint of "tailbone pain" gradually for the past 1 month. She denies any injury or fall. Patient denies any known swelling or drainage from the site. She states normal bowel movements, denies rectal involvement. Denies any fever. Review of Systems ROS Statements All systems rev neg except as marked. Focused Review of Systems Constitutional Denies: Fever. Musculoskeletal Reports: Back pain. Skin Denies: Erythema, Swelling. Past Medical History - Adult Stated Complaint "TAIL BONE HURTS" Allergies Coded Allergies: No Known Allergies (12/10/19) Home Medications Reported Medications FEXOFENADINE (PAMELA ALLERGY) 180 MG PO DAILY ESCITALOPRAM (LEXAPRO) Review of Nursing Notes Not reviewed nurse notes Past Medical History: Reports: Depression/mood disorder. Additional Surgical History Adenoidectomy. Smoking status for patients 13 years old or older: Current every day smoker Physical Exam Vital Signs Vital Signs First Documented: Result Date Time Pulse Ox 98 12/09 1501 B/P 133/82 12/09 1501 B/P Mean 99 12/09 1501 Temp 97.8 12/09 1501 Pulse 96 12/09 1501 Resp 16 12/09 1501 Last Documented: Result Date Time Pulse Ox 98 12/09 1501 B/P 133/82 12/09 1501 B/P Mean 99 12/09 1501 Temp 97.8 12/09 1501 Pulse 96 12/09 1501 Resp 16 12/09 1501 Review of Vital Signs Reviewed Basic Physical Exam Basic PE HEAD: Atraumatic/NC, EYES: PERRL, conj clear, ENT: Membranes moist, NECK: Supple, RESP: No resp distress, CV: Reg rate rhythm, ABD: Soft/non- tender, EXT: No gross abnormality, NEURO: alert oriented, NEURO: gross movement NL, PSYCH: NL thought content Focused PE Skin Text/Dict Notes At the top of the cleft of the buttocks there is erythema, warmth, tenderness. There is no pilonidal, no swelling or abscess formation. Additional PE MS Back Back Atraumatic, Inspection NL, Full range of motion, No midline vertebral tend, No paraspinal tenderness Interpretation Diagnostics Point of Care Testing Pulse Oximetry Pulse Ox % 98 On: Room air Interpretation Interpreted by me, Pulse oximetry normal Time 1524 Re-Evaluation MDM Re-Evaluation/Progress Re-Evaluation/Progress Text/Dict Note PE reveals cellulitis without signs of abscess or systemic illness. Will prescribe p.o. Keflex. Instructed follow-up with PCP in 48 hours for wound check. Educated on return to ED criteria. Patient agreed and acknowledged understanding of plan. Time of Re-Eval 1525 ED Course Time 1525 Patient Course Stable Safety Concerns Patient is safe Patient Discharge Departure Vital Signs/Condition Vital Signs First Documented: Result Date Time Pulse Ox 98 / 1501 B/P 133/82 / 1501 B/P Mean 99 12/09 1501 Temp 97.8 12/09 1501 Pulse 96 / 1501 Resp 16 12/09 1501 Last Documented: Result Date Time Pulse Ox 98 12/09 1501 B/P 133/82 / 1501 B/P Mean 99 12/09 1501 Temp 97.8 12/09 1501 Pulse 96 / 1501 Resp 16 12/09 1501 All vital signs available at the time of this entry have been reviewed. Condition Stable Clinical Impression Clinical Impression Primary Impression: Cellulitis of buttock Disposition Decision Discharge )( Discharged to Home Yes )( Time 1526 )( Date 12/10/19 Discharge/Care Plan Counseled Regarding Diagnosis, Prescriptions, Need for follow-up, When to return to ED Prescriptions Reviewed Risks, Benefits, Alternative treatment Referrals [facility] Discharge Note I have spoken with the patient and/or caregivers. I have explained the patient's condition, diagnoses and treatment plan based on the information available to me at this time. I have answered the patient's and/or caregiver's questions and addressed any concerns. The patient and/or caregivers have as good an understanding of the patient's diagnosis, condition and treatment plan as can be expected at this point. The vital signs have been stable. The patient's condition is stable and appropriate for discharge from the emergency department. The patient will pursue further outpatient evaluation with the primary care physician or other designated or consulting physician as outlined in the discharge instructions. The patient and/or caregivers are agreeable to this plan of care and follow-up instructions have been explained in detail. The patient and/or caregivers have received these instructions in written format and have expressed an understanding of the discharge instructions. The patient and/or caregivers are aware that any significant change in condition or worsening of symptoms should prompt an immediate return to this or the closest emergency department or a call to 911. Jermaine Corrigan 12/11/19 0956: HPI-Rash/Abscess/Cellulitis General Initial Greet Date/Time 12/10/19 1509 Patient Discharge Departure Supervising Physician Note MidLv Saw Pt Alone I have reviewed the PA/JOB ORDER CLERK's note and plan of care. I was available for consultation as needed at all times during the patient's visit in the emergency department. I agree with the clinical impression, plan and disposition. at 2240 at 0957 RPT #:[id number] END OF REPORT [facility] 2019-10-21 12:13:[address] [facility] ([facility]) EMERGENCY PROVIDER REPORT REPORT#:[id number] REPORT STATUS: Signed DATE:10/21/19 TIME: 1213 PATIENT: BRANDON ROLON UNIT #: [id number] ROOM/BED: AGE: 19 SEX: F PCP PHYS: No Primary or Family Physician SERVICE AUTHOR: Michael Ruiz JOB ORDER CLERK * ALL edits or amendments must be made on the electronic/computer document * HPI-Abd Pain F Under 40 General Confirmed Patient Yes Patient Type New patient Initial Greet Date/Time 10/21/19 1154 Presentation Chief Complaint Abdominal pain, Nausea Hx Obtained From Patient Sudden in Onset? No Onset Occurred Weeks ago (2) Symptom Duration Since onset Progression since Onset Intermittent Caused by No trauma by history Severity: Current No pain currently Associated with Denies: Chest pain, Dysuria. Exacerbated by Nothing Relieved by Nothing Context Related History Denies: Abdominal surgery. Immunization Status General Unknown Recent Healthcare No recent doctor visit, No recent hospitalization Similar Sx Previous No Free Text HPI Notes Free Text HPI Notes Patient is an 19-year-old female that comes to the emergency room with chief complaint of 2-week history of intermittent lower abdominal pain associated with nausea.Denies vomiting. Denies diarrhea constipation. Denies vaginal bleeding or discharge. Patient states she had 1- test followed up with a positive test. Patient states that she thinks she is . Denies fever, back pain. Risk-Abd Pain F Under 40 )( Ectopic Risk factors reviewed Review of Systems ROS Statements All systems rev neg except as marked. Focused Review of Systems Constitutional Denies: Chills, Fatigue, Fever. Respiratory Denies: Cough, non-productive, Shortness of breath. Cardiovascular Denies: Chest pain, Syncope. GI Reports: Abdominal pain, Nausea. Denies: Diarrhea. Female Denies: Dysuria, Pelvic pain, Vaginal bleeding - abnl. Musculoskeletal Denies: Back pain, Myalgia. Past Medical History - Adult Stated Complaint N/V AND ABDOMINAL PAIN FOR 1 WEEK Allergies Coded Allergies: No Known Allergies (10/02/19) Home Medications Reported Medications FEXOFENADINE (PAMELA ALLERGY) 180 MG PO DAILY ESCITALOPRAM (LEXAPRO) Review of Nursing Notes Unavailable at this time Past Medical History: Reports: Depression/mood disorder. Additional Surgical History Adenoidectomy. Smoking status for patients 13 years old or older: Current some day smoker Physical Exam Vital Signs Vital Signs First Documented: Result Date Time Pulse Ox 100 10/20 1153 B/P 126/71 10/20 1153 B/P Mean 89 10/20 1153 O2 Delivery Room air 10/20 1153 Temp 36.7 10/20 1153 Pulse 90 10/20 1153 Resp 18 10/20 1153 Last Documented: Result Date Time Pulse Ox 98 10/20 1415 B/P 126/80 10/20 1415 B/P Mean 95 10/20 1415 Temp 36.7 10/20 1415 Pulse 78 10/20 1415 Resp 16 10/20 1415 O2 Delivery Room air 10/20 1153 Review of Vital Signs Reviewed Focused PE General/Const General/Const Awake, Alert, No acute distress, Well appearing, Well developed , Well hydrated, Well nourished, Cooperative, Not toxic appearing MS Head Head Atraumatic, Normocephalic Eyes Eyes Atraumatic, EOMI, No nystagmus Ears/Nose/Throat Ears/Nose/Throat Atraumatic, Airway patent, Mucous membranes moist Resp/Chest Respiratory/Chest Atraumatic, No respiratory distress Cardiovascular Cardiovascular Heart rate NL, Cap refill not delayed, Peripheral circulation NL Abdomen/GI Abdomen/GI Atraumatic MS Back Back Atraumatic Skin Skin Atraumatic, Color NL, No rash, Warm, Dry, Intact, Turgor NL, No swelling Genitourinary General Exam deferred Rectum Rectum/Perineum Exam deferred Neurologic Neurologic Oriented X3, Speech NL, No motor deficits, No sensory deficits, Cerebellar NL, Memory NL, Gait NL Interpretation Diagnostics Lab Results Interpretation Results Laboratory Tests 10/21/19 1355: [Embedded Image Not Available] Laboratory Tests: 10/20 1354 Chemistry Sodium (133 - 144 mmol/L) 136.0 Potassium (3.5 - 5.1 mmol/L) 3.6 Chloride (95 - 105 mmol/L) 106 H Carbon Dioxide (21 - 32 mmol/L) 27 Anion Gap (4.0 - 15.0 GAP calc) 3.0 L BUN (7 - 18 MG/DL) 10 Creatinine (0.55 - 1.30 MG/DL) 0.90 Glomerular Filtr Rate (>60 estGFR) 82 Glucose (70 - 110 MG/DL) 88 Calcium (8.5 - 10.1 MG/DL) 9.1 Total Bilirubin (0.00 - 1.00 MG/DL) 0.60 Direct Bilirubin (0.00 - 0.30 MG/DL) 0.16 Indirect Bilirubin (0.2 - 1.3 MG/DL) 0.44 AST (15 - 37 Unit/L) 27 ALT (12 - 78 Unit/L) 59 Total Alk Phosphatase (45 - 117 Unit/L) 64 Total Protein (6.4 - 8.2 G/DL) 8.4 H Albumin (3.4 - 5.0 G/DL) 4.2 Albumin/Globulin Ratio (1.2 - 2.2 RATIO) 1.0 L Lipase (114 - 286 Unit/L) 85 L Specimen Appearance (1 NORMAL Index/DL) 1 NORMAL <2 MG Specimen Hemolysis (1 NORMAL Index/DL) 1 NORMAL <10 MG Hematology WBC (4.1 - 12.1 K/mm3) 6.0 RBC (3.8 - 5.5 M/mm3) 4.70 Hgb (10.6 - 15.8 G/DL) 13.8 Hct (31.8 - 47.4 %) 40.1 MCV (80.1 - 101.1 fL) 85.3 MCH (25.3 - 35.3 pg) 29.4 MCHC (32.7 - 35.1 G/DL) 34.4 RDW (12.2 - 16.4 %) 12.9 Plt Count (155 - 337 K/mm3) 301 MPV (6.8 - 11.2 fL) 10.1 Gran % (37.8 - 82.6 %) 55.0 Lymph % (Auto) (14.1 - 45.4 %) 32.2 Crook % (Auto) (2.5 - 11.7 %) 8.4 Eos % (Auto) (0.0 - 6.2 %) 3.5 Baso % (Auto) (0.0 - 2.1 %) 0.7 Gran # (2.0 - 13.7 k/mm3) 3.29 Lymph # (Auto) (0.6 - 3.8 K/mm3) 1.92 Crook # (Auto) (0.11 - 0.59 K/mm3) 0.50 Eos # (Auto) (0.0 - 0.4 K/mm3) 0.21 Baso # (Auto) (0.0 - 0.1 K/mm3) 0.04 Immature Gran % (0.0 - 2.0 %) 0.2 Nucleated RBC % (0.0 - 1.0 /100WBC%) 0.0 Nucleated RBCs # (0.0 - 0.05 K/mm3) 0.00 10/20 1212 Urines Urine Color (YELLOW DESCRIPT) YELLOW Urine Appearance (CLEAR DESCRIPT) CLEAR Urine pH (4.6 - 8.0 pH UNITS) 6.0 Ur Specific [place] (1.001 - 1.035 SG) 1.033 Urine Protein (<30 (1+) mg/dL) 30 (1+) H Urine Glucose (UA) (0 (NORMAL) mg/dL) NORMAL (0) Urine Ketones ((NEG) 0 mg/dL) NEGATIVE (0) Urine Blood (0 (NEG) mg/dL) NEGATIVE (0.00) Urine Nitrite (NEG SCREEN) NEGATIVE (0) Urine Bilirubin ((NEG) 0 mg/dL) NEGATIVE (0.0) Urine Urobilinogen (<2.0 (1+) mg/Dl) NORMAL (0) Ur Leukocyte Esterase ((NEG) 0 Leuk/mcL) NEGATIVE (0) Urine RBC (0 - 3 #RBC/HPF) 0-3 Urine WBC (0 - 3 #WBC/HPF) 0-3 Ur Squamous Epith Cells (NONE - SQepi /UL) RARE >0 Urine Bacteria (NONE - FEW /HPF) FEW >1 Urine Mucus (NONE /LPF) MANY H Urine Culture Screen (Cult byWBC Criteria) Crit NOTmet CULT-N/A Urine HCG, Qual (NEG) NEGATIVE Urine Comment (SpecComment NoteSPEC) CLEAN CATCH SPEC Re-Evaluation MDM )( Re-Evaluation/Progress #1 Text/Dict Note Discussed diagnostic results with patient. Patient will be discharged home with prescription for Zofran for nausea. Patient given strict return precautions. Patient agrees with plan. Time of Re-Eval 1423 )( Re-Eval Status Improved Re-Eval Abdomen Soft, Non-tender Eval Following Treatment Pt. feels better Plan Post Re-Eval Plan discharge Patient Discharge Departure Vital Signs/Condition Vital Signs First Documented: Result Date Time Pulse Ox 100 10/20 1153 B/P 126/71 10/20 1153 B/P Mean 89 10/20 1153 O2 Delivery Room air 10/20 1153 Temp 36.7 10/20 1153 Pulse 90 10/20 1153 Resp 18 10/20 1153 Last Documented: Result Date Time Pulse Ox 98 10/20 1415 B/P 126/80 10/20 1415 B/P Mean 95 10/20 1415 Temp 36.7 10/20 1415 Pulse 78 10/20 1415 Resp 16 10/20 1415 O2 Delivery Room air 10/20 1153 All vital signs available at the time of this entry have been reviewed. Condition Stable Clinical Impression Clinical Impression Primary Impression: Abdominal pain Secondary Impressions: Nausea Disposition Decision Discharge )( Discharged to Home Yes )( Time 1426 )( Date 10/21/19 Discharge/Care Plan Counseled Regarding Diagnosis, Lab results, Prescriptions, Need for follow-up, When to return to ED Prescriptions zofran Referrals No Primary or Family Physician (PCP) at 1445 RPT #:[id number] END OF REPORT [facility] 2019-10-21 12:13:00 [facility] ([facility]) EMERGENCY PROVIDER REPORT REPORT#:[id number] REPORT STATUS: Signed DATE:10/21/19 TIME: 1213 PATIENT: BRANDON ROLON UNIT #: [id number] ROOM/BED: AGE: 19 SEX: F PCP PHYS: No Primary or Family Physician SERVICE AUTHOR: Michael Ruiz JOB ORDER CLERK * ALL edits or amendments must be made on the electronic/computer document * Michael Ruiz 10/21/19 1213: HPI-Abd Pain F Under 40 General Confirmed Patient Yes Patient Type New patient Presentation Chief Complaint Abdominal pain, Nausea Hx Obtained From Patient Sudden in Onset? No Onset Occurred Weeks ago (2) Symptom Duration Since onset Progression since Onset Intermittent Caused by No trauma by history Severity: Current No pain currently Associated with Denies: Chest pain, Dysuria. Exacerbated by Nothing Relieved by Nothing Context Related History Denies: Abdominal surgery. Immunization Status General Unknown Recent Healthcare No recent doctor visit, No recent hospitalization Similar Sx Previous No Free Text HPI Notes Free Text HPI Notes Patient is an 19-year-old female that comes to the emergency room with chief complaint of 2-week history of intermittent lower abdominal pain associated with nausea.Denies vomiting. Denies diarrhea constipation. Denies vaginal bleeding or discharge. Patient states she had 1- test followed up with a positive test. Patient states that she thinks she is . Denies fever, back pain. Risk-Abd Pain F Under 40 )( Ectopic Risk factors reviewed Review of Systems ROS Statements All systems rev neg except as marked. Focused Review of Systems Constitutional Denies: Chills, Fatigue, Fever. Respiratory Denies: Cough, non-productive, Shortness of breath. Cardiovascular Denies: Chest pain, Syncope. GI Reports: Abdominal pain, Nausea. Denies: Diarrhea. Female Denies: Dysuria, Pelvic pain, Vaginal bleeding - abnl. Musculoskeletal Denies: Back pain, Myalgia. Past Medical History - Adult Stated Complaint N/V AND ABDOMINAL PAIN FOR 1 WEEK Allergies Coded Allergies: No Known Allergies (10/02/19) Home Medications Reported Medications FEXOFENADINE (PAMELA ALLERGY) 180 MG PO DAILY ESCITALOPRAM (LEXAPRO) Review of Nursing Notes Unavailable at this time Past Medical History: Reports: Depression/mood disorder. Additional Surgical History Adenoidectomy. Smoking status for patients 13 years old or older: Current some day smoker Physical Exam Vital Signs Vital Signs First Documented: Result Date Time Pulse Ox 100 10/20 1153 B/P 126/71 10/20 1153 B/P Mean 89 10/20 1153 O2 Delivery Room air 10/20 1153 Temp 98.0 10/20 1153 Pulse 90 10/20 1153 Resp 18 10/20 1153 Last Documented: Result Date Time Pulse Ox 98 10/20 141 B/P 126/80 10/20 1415 B/P Mean 95 10/20 1415 Temp 98.1 10/20 141 Pulse 78 10/20 1415 Resp 16 10/20 1415 O2 Delivery Room air 10/20 115 Review of Vital Signs Reviewed Focused PE General/Const General/Const Awake, Alert, No acute distress, Well appearing, Well developed , Well hydrated, Well nourished, Cooperative, Not toxic appearing MS Head Head Atraumatic, Normocephalic Eyes Eyes Atraumatic, EOMI, No nystagmus Ears/Nose/Throat Ears/Nose/Throat Atraumatic, Airway patent, Mucous membranes moist Resp/Chest Respiratory/Chest Atraumatic, No respiratory distress Cardiovascular Cardiovascular Heart rate NL, Cap refill not delayed, Peripheral circulation NL Abdomen/GI Abdomen/GI Atraumatic MS Back Back Atraumatic Skin Skin Atraumatic, Color NL, No rash, Warm, Dry, Intact, Turgor NL, No swelling Genitourinary General Exam deferred Rectum Rectum/Perineum Exam deferred Neurologic Neurologic Oriented X3, Speech NL, No motor deficits, No sensory deficits, Cerebellar NL, Memory NL, Gait NL Interpretation Diagnostics Lab Results Interpretation Results Laboratory Tests 10/21/19 1355: [Embedded Image Not Available] Laboratory Tests: 10/20 1354 Chemistry Sodium (133 - 144 mmol/L) 136.0 Potassium (3.5 - 5.1 mmol/L) 3.6 Chloride (95 - 105 mmol/L) 106 H Carbon Dioxide (21 - 32 mmol/L) 27 Anion Gap (4.0 - 15.0 GAP calc) 3.0 L BUN (7 - 18 MG/DL) 10 Creatinine (0.55 - 1.30 MG/DL) 0.90 Glomerular Filtr Rate (>60 estGFR) 82 Glucose (70 - 110 MG/DL) 88 Calcium (8.5 - 10.1 MG/DL) 9.1 Total Bilirubin (0.00 - 1.00 MG/DL) 0.60 Direct Bilirubin (0.00 - 0.30 MG/DL) 0.16 Indirect Bilirubin (0.2 - 1.3 MG/DL) 0.44 AST (15 - 37 Unit/L) 27 ALT (12 - 78 Unit/L) 59 Total Alk Phosphatase (45 - 117 Unit/L) 64 Total Protein (6.4 - 8.2 G/DL) 8.4 H Albumin (3.4 - 5.0 G/DL) 4.2 Albumin/Globulin Ratio (1.2 - 2.2 RATIO) 1.0 L Lipase (114 - 286 Unit/L) 85 L Specimen Appearance (1 NORMAL Index/DL) 1 NORMAL <2 MG Specimen Hemolysis (1 NORMAL Index/DL) 1 NORMAL <10 MG Hematology WBC (4.1 - 12.1 K/mm3) 6.0 RBC (3.8 - 5.5 M/mm3) 4.70 Hgb (10.6 - 15.8 G/DL) 13.8 Hct (31.8 - 47.4 %) 40.1 MCV (80.1 - 101.1 fL) 85.3 MCH (25.3 - 35.3 pg) 29.4 MCHC (32.7 - 35.1 G/DL) 34.4 RDW (12.2 - 16.4 %) 12.9 Plt Count (155 - 337 K/mm3) 301 MPV (6.8 - 11.2 fL) 10.1 Gran % (37.8 - 82.6 %) 55.0 Lymph % (Auto) (14.1 - 45.4 %) 32.2 Crook % (Auto) (2.5 - 11.7 %) 8.4 Eos % (Auto) (0.0 - 6.2 %) 3.5 Baso % (Auto) (0.0 - 2.1 %) 0.7 Gran # (2.0 - 13.7 k/mm3) 3.29 Lymph # (Auto) (0.6 - 3.8 K/mm3) 1.92 Crook # (Auto) (0.11 - 0.59 K/mm3) 0.50 Eos # (Auto) (0.0 - 0.4 K/mm3) 0.21 Baso # (Auto) (0.0 - 0.1 K/mm3) 0.04 Immature Gran % (0.0 - 2.0 %) 0.2 Nucleated RBC % (0.0 - 1.0 /100WBC%) 0.0 Nucleated RBCs # (0.0 - 0.05 K/mm3) 0.00 10/20 1212 Urines Urine Color (YELLOW DESCRIPT) YELLOW Urine Appearance (CLEAR DESCRIPT) CLEAR Urine pH (4.6 - 8.0 pH UNITS) 6.0 Ur Specific [place] (1.001 - 1.035 SG) 1.033 Urine Protein (<30 (1+) mg/dL) 30 (1+) H Urine Glucose (UA) (0 (NORMAL) mg/dL) NORMAL (0) Urine Ketones ((NEG) 0 mg/dL) NEGATIVE (0) Urine Blood (0 (NEG) mg/dL) NEGATIVE (0.00) Urine Nitrite (NEG SCREEN) NEGATIVE (0) Urine Bilirubin ((NEG) 0 mg/dL) NEGATIVE (0.0) Urine Urobilinogen (<2.0 (1+) mg/Dl) NORMAL (0) Ur Leukocyte Esterase ((NEG) 0 Leuk/mcL) NEGATIVE (0) Urine RBC (0 - 3 #RBC/HPF) 0-3 Urine WBC (0 - 3 #WBC/HPF) 0-3 Ur Squamous Epith Cells (NONE - SQepi /UL) RARE >0 Urine Bacteria (NONE - FEW /HPF) FEW >1 Urine Mucus (NONE /LPF) MANY H Urine Culture Screen (Cult byWBC Criteria) Crit NOTmet CULT-N/A Urine HCG, Qual (NEG) NEGATIVE Urine Comment (SpecComment NoteSPEC) CLEAN CATCH SPEC Re-Evaluation MDM )( Re-Evaluation/Progress #1 Text/Dict Note Discussed diagnostic results with patient. Patient will be discharged home with prescription for Zofran for nausea. Patient given strict return precautions. Patient agrees with plan. Time of Re-Eval 1423 )( Re-Eval Status Improved Re-Eval Abdomen Soft, Non-tender Eval Following Treatment Pt. feels better Plan Post Re-Eval Plan discharge Patient Discharge Departure Vital Signs/Condition Vital Signs First Documented: Result Date Time Pulse Ox 100 10/20 1153 B/P 126/71 10/20 1153 B/P Mean 89 10/20 1153 O2 Delivery Room air 10/20 115 Temp 98.0 10/20 115 Pulse 90 10/20 1153 Resp 18 10/20 115 Last Documented: Result Date Time Pulse Ox 98 10/20 1415 B/P 126/80 10/20 1415 B/P Mean 95 10/20 1415 Temp 98.1 10/20 1415 Pulse 78 10/20 1415 Resp 16 10/20 1415 O2 Delivery Room air 10/20 1153 All vital signs available at the time of this entry have been reviewed. Condition Stable Clinical Impression Clinical Impression Primary Impression: Abdominal pain Secondary Impressions: Nausea Disposition Decision Discharge )( Discharged to Home Yes )( Time 1426 )( Date 10/21/19 Discharge/Care Plan Counseled Regarding Diagnosis, Lab results, Prescriptions, Need for follow-up, When to return to ED Prescriptions zofran Referrals No Primary or Family Physician (PCP) Jermaine Corrigan 10/22/19 1016: HPI-Abd Pain F Under 40 General Initial Greet Date/Time 10/21/19 1154 Patient Discharge Departure Supervising Physician Note MidLv Saw Pt Alone I have reviewed the PA/JOB ORDER CLERK's note and plan of care. I was available for consultation as needed at all times during the patient's visit in the emergency department. I agree with the clinical impression, plan and disposition. at 1445 at 1016 RPT #:[id number] END OF REPORT [facility] 2019-10-02 19:58:[address] [facility] ([facility]) EMERGENCY PROVIDER REPORT REPORT#:[id number] REPORT STATUS: Signed DATE:10/02/19 TIME: 1957 PATIENT: BRANDON ROLON UNIT #: [id number] ROOM/BED: AGE: 19 SEX: F PCP PHYS: No Primary or Family Physician SERVICE AUTHOR: Giuliana Phan * ALL edits or amendments must be made on the electronic/computer document * HPI-General Illness General Confirmed Patient Yes Patient Type New patient Initial Greet Date/Time 10/02/191956 Assumed Care at Time 2213 Date 10/02/19 PCP none. Provider in Triage Greet Note I have greeted and performed a focused rapid initial assessment of this patient. A comprehensive ED assessment and evaluation of the patient, analysis of all test results, and completion of the medical decision-making process will be conducted by additional ED providers. HPI Chief Complaint Cough/cold, Shortness of breath (strep throat) Onset Occurred Days ago (10 ) Severity Moderate PE General/Const No acute distress MSE Not Complete The medical screening exam is not complete. Further evaluation and/or treatment is required. The patient will be re-directed to the emergency department. Presentation Chief Complaint Congested, Cough, Shortness of breath, Sore throat Hx Obtained From Patient Sudden in Onset? No Onset Occurred Days ago (6-7 days ) Symptom Duration Since onset Progression since Onset Gradually worsening Caused by exposed to coivd 19 Location Chest (and nasal congestion.) Severity: Current Mild Associated with Reports: Congestion, Cough, Nasal discharge (clear), Shortness of breath. Denies: Abdominal pain, Anorexia, Difficulty breathing, Difficulty swallowing, Discharge, Dizziness, Fever, Itching, Pain, Speech abnormal, Vision change, Vomiting, Weak extremity, Weakness. Associated Other Pt denies other symptoms Exacerbated by Nothing Relieved by Nothing Context Related History Denies: Diabetes mellitus, Drug dependence, GERD. Immunization Status General Unknown Recent Healthcare Recent doctor visit (seen here. ) Additional Context 19-year-old female with past medical history of depression, seasonal allergies, presents to the ER complaining of runny nose, postnasal drainage, dry cough, shortness of breath, diarrhea and headaches for the last 7 or 8 days. The patient reports she was exposed to COVID-19 directly, as her mother's friends said had COVID, and she was exposed to them. The patient reports she was seen here on 09/23 and was treated with for pharyngitis, her throat pain has resolved. She denies any other symptoms. Review of Systems ROS Statements All systems rev neg except as marked. Review of Systems Constitutional Denies: Chills, Fever. Eyes Denies: Photophobia, Redness bilat. Ears/Nose/Throat Reports: Nasal congestion. Denies: Sore throat. Respiratory Reports: Cough, non-productive, Shortness of breath. Denies: Cough, productive, Dyspnea on exertion, Hemoptysis, Parox nocturnal dyspnea, Pleuritic pain, Wheezing. Cardiovascular Denies: Chest pain. GI Reports: Diarrhea. Denies: Abdominal pain, Dysphagia, Nausea, Vomiting. Female Denies: Dysuria, Flank pain, . Musculoskeletal Denies: Back pain. Skin Denies: Swelling. Neurologic Reports: Headache. Denies: Dizziness, Lightheaded. Past Medical History - Adult Stated Complaint HEADACHE,COUGH, NASAL CONGESTION Allergies Coded Allergies: No Known Allergies (10/02/19) Home Medications Reported Medications FEXOFENADINE (PAMELA ALLERGY) 180 MG PO DAILY ESCITALOPRAM (LEXAPRO) Review of Nursing Notes Unavailable at this time Past Medical History: Reports: Depression/mood disorder. Additional Surgical History Adenoidectomy. Smoking status for patients 13 years old or older: Current every day smoker Physical Exam Vital Signs Vital Signs First Documented: Result Date Time Pulse Ox 98 10/01 1953 B/P 123/76 10/01 1953 B/P Mean 91 10/01 1953 O2 Delivery Room air 10/01 1953 Temp 98.5 10/01 1953 Pulse 104 10/01 1953 Resp 16 10/01 1953 Last Documented: Result Date Time Pulse Ox 99 10/01 2234 B/P 117/80 10/01 2234 B/P Mean 92 10/01 2234 O2 Delivery Room air 10/01 2234 Temp 98.5 10/01 2234 Pulse 91 10/01 2234 Resp 16 10/01 2234 Review of Vital Signs Reviewed Physical Exam General/Const General/Const Awake, Alert, No acute distress, Well appearing, Well developed , Well hydrated, Well nourished, Cooperative, Not toxic appearing MS Head Head Normocephalic Eyes Eyes Atraumatic, PERRL, EOMI Ears/Nose/Throat Ears/Nose/Throat Atraumatic, Airway patent, Mucous membranes moist, Pharynx NL, No peritonsillar abscess, No pooling of secretions, No trismus, Tympanic membs NL, Ext aud canal NL, Mastoid area NL, Nose exam NL, No facial swelling MS Neck Neck Atraumatic, Supple, No meningismus, Full range of motion, No adenopathy Resp/Chest Respiratory/Chest Atraumatic, Breath sounds NL, Breath sounds = bilat, No respiratory distress Cardiovascular Cardiovascular Heart rate NL, Regular rhythm, Heart sounds NL Abdomen/GI Abdomen/GI Soft, Non-tender MS Back Back Inspection NL, Painless range of motion, Non-tender MS Upper Extrem Upper Extremity/MS Atraumatic, Inspection NL, Full range of motion MS Wrist/Hand Wrist/Hand Atraumatic, Inspection NL, Full range of motion MS Lower Extrem Lower Ext/Pelvis/MS Inspection NL, Full range of motion MS Ankle/Foot Ankle/Foot Inspection NL, Full range of motion Skin Skin Atraumatic, Color NL, No rash, Warm, Dry, Intact, Turgor NL, No swelling Neurologic Neurologic Oriented X3, Speech NL, No motor deficits, CN II - XII intact, Memory NL, Gait NL Psychiatric Psychiatric Affect NL, Mood NL Interpretation Diagnostics Lab Results Interpretation Results Laboratory Tests: 10/01 2301 Serology COVID-19 PCR (Not Detected) Not Detected Recent Impressions: RADIOLOGY - XR CHEST 2 V 10/01 2008 Report Impression - Status: SIGNED Entered: 10/02/20192020 IMPRESSION: Normal chest x-ray. Impression By: Roberto Lopez M.D. Lab Imaging Statement Laboratory radiographic studies reviewed and considered in the medical decision-making. Recent Impressions: RADIOLOGY - XR CHEST 2 V 10/01 2008 Report Impression - Status: SIGNED Entered: 10/02/20192020 IMPRESSION: Normal chest x-ray. Impression By: Roberto Lopez M.D. Point of Care Testing Pulse Oximetry Pulse Ox % 98 On: Room air Interpretation Interpreted by me, Pulse oximetry normal Time 1958 Re-Evaluation MDM Re-Evaluation/Progress #1 Text/Dict Note The patient is comfortably sitting in the room, she appears well, nontoxic, vital signs are stable, discussed examination with the patient which was unremarkable, other than inferior turbinates were swollen, she did have clear nasal drainage. The lungs are clear to auscultation she was afebrile and not tachycardic and not hypoxic. Discussed check chest x-ray results with the patient which are unremarkable the patient has been given information about COVID-19, self quarantining and to hydrate herself, advised her to take Tylenol for any body aches, and to return to the ER for any worsening symptoms. The patient is comfortable with discharge verbalized understanding patient. The patient will signs are stable at discharge. Time of Re-Eval 2221 Re-Eval Status Unchanged Plan Post Re-Eval Plan discharge Patient Discharge Departure Vital Signs/Condition Vital Signs First Documented: Result Date Time Pulse Ox 98 10/01 1953 B/P 123/76 10/01 1953 B/P Mean 91 10/01 1953 O2 Delivery Room air 10/01 1953 Temp 98.5 10/01 1953 Pulse 104 10/01 1953 Resp 16 10/01 1953 Last Documented: Result Date Time Pulse Ox 99 10/01 2234 B/P 117/80 10/01 2234 B/P Mean 92 10/01 2234 O2 Delivery Room air 10/01 2234 Temp 98.5 10/01 2234 Pulse 91 10/01 2234 Resp 16 10/01 2234 All vital signs available at the time of this entry have been reviewed. Condition Stable Clinical Impression Clinical Impression Primary Impression: Nasal congestion Secondary Impressions: Cough, Exposure to COVID-19 virus, Shortness of breath Time of Impression 2223 Disposition Decision Discharge )( Discharged to Home Yes )( Time 2223 )( Date 10/02/19 Discharge/Care Plan Counseled Regarding Diagnosis, Imaging studies, Need for follow-up, When to return to ED Prescriptions Hydrate, Tylenol, strict return precautions were given. Referrals No Primary or Family Physician (PCP) Discharge Note I have spoken with the patient and/or caregivers. I have explained the patient's condition, diagnoses and treatment plan based on the information available to me at this time. I have answered the patient's and/or caregiver's questions and addressed any concerns. The patient and/or caregivers have as good an understanding of the patient's diagnosis, condition and treatment plan as can be expected at this point. The vital signs have been stable. The patient's condition is stable and appropriate for discharge from the emergency department. The patient will pursue further outpatient evaluation with the primary care physician or other designated or consulting physician as outlined in the discharge instructions. The patient and/or caregivers are agreeable to this plan of care and follow-up instructions have been explained in detail. The patient and/or caregivers have received these instructions in written format and have expressed an understanding of the discharge instructions. The patient and/or caregivers are aware that any significant change in condition or worsening of symptoms should prompt an immediate return to this or the closest emergency department or a call to 911. Free Text Depart Notes Free Text Depart Notes Advised to follow-up with [place], strict return precautions are given. at 1446 [facility] #:[id number] END OF REPORT [facility] 2019-10-02 19:58:[address] [facility] ([facility]) EMERGENCY PROVIDER REPORT REPORT#:[id number] REPORT STATUS: Signed DATE:10/02/19 TIME: 1957 PATIENT: BRANDON ROLON UNIT #: [id number] ROOM/BED: AGE: 19 SEX: F PCP PHYS: No Primary or Family Physician SERVICE AUTHOR: Giuliana Phan * ALL edits or amendments must be made on the electronic/computer document * Giuliana Phan 10/02/191957: HPI-General Illness General Confirmed Patient Yes Patient Type New patient Assumed Care at Time 2213 Date 10/02/19 PCP none. Provider in Triage Greet Note I have greeted and performed a focused rapid initial assessment of this patient. A comprehensive ED assessment and evaluation of the patient, analysis of all test results, and completion of the medical decision-making process will be conducted by additional ED providers. HPI Chief Complaint Cough/cold, Shortness of breath (strep throat) Onset Occurred Days ago (10 ) Severity Moderate PE General/Const No acute distress MSE Not Complete The medical screening exam is not complete. Further evaluation and/or treatment is required. The patient will be re-directed to the emergency department. Presentation Chief Complaint Congested, Cough, Shortness of breath, Sore throat Hx Obtained From Patient Sudden in Onset? No Onset Occurred Days ago (6-7 days ) Symptom Duration Since onset Progression since Onset Gradually worsening Caused by exposed to coivd 19 Location Chest (and nasal congestion.) Severity: Current Mild Associated with Reports: Congestion, Cough, Nasal discharge (clear), Shortness of breath. Denies: Abdominal pain, Anorexia, Difficulty breathing, Difficulty swallowing, Discharge, Dizziness, Fever, Itching, Pain, Speech abnormal, Vision change, Vomiting, Weak extremity, Weakness. Associated Other Pt denies other symptoms Exacerbated by Nothing Relieved by Nothing Context Related History Denies: Diabetes mellitus, Drug dependence, GERD. Immunization Status General Unknown Recent Healthcare Recent doctor visit (seen here. ) Additional Context 19-year-old female with past medical history of depression, seasonal allergies, presents to the ER complaining of runny nose, postnasal drainage, dry cough, shortness of breath, diarrhea and headaches for the last 7 or 8 days. The patient reports she was exposed to COVID-19 directly, as her mother's friends said had COVID, and she was exposed to them. The patient reports she was seen here on 09/23 and was treated with for pharyngitis, her throat pain has resolved. She denies any other symptoms. Review of Systems ROS Statements All systems rev neg except as marked. Review of Systems Constitutional Denies: Chills, Fever. Eyes Denies: Photophobia, Redness bilat. Ears/Nose/Throat Reports: Nasal congestion. Denies: Sore throat. Respiratory Reports: Cough, non-productive, Shortness of breath. Denies: Cough, productive, Dyspnea on exertion, Hemoptysis, Parox nocturnal dyspnea, Pleuritic pain, Wheezing. Cardiovascular Denies: Chest pain. GI Reports: Diarrhea. Denies: Abdominal pain, Dysphagia, Nausea, Vomiting. Female Denies: Dysuria, Flank pain, . Musculoskeletal Denies: Back pain. Skin Denies: Swelling. Neurologic Reports: Headache. Denies: Dizziness, Lightheaded. Past Medical History - Adult Stated Complaint HEADACHE,COUGH, NASAL CONGESTION Allergies Coded Allergies: No Known Allergies (10/02/19) Home Medications Reported Medications FEXOFENADINE (PAMELA ALLERGY) 180 MG PO DAILY ESCITALOPRAM (LEXAPRO) Review of Nursing Notes Unavailable at this time Past Medical History: Reports: Depression/mood disorder. Additional Surgical History Adenoidectomy. Smoking status for patients 13 years old or older: Current every day smoker Physical Exam Vital Signs Vital Signs First Documented: Result Date Time Pulse Ox 98 10/01 1953 B/P 123/76 10/01 1953 B/P Mean 91 10/01 1953 O2 Delivery Room air 10/01 1953 Temp 98.5 10/01 1953 Pulse 104 10/01 1953 Resp 16 10/01 1953 Last Documented: Result Date Time Pulse Ox 99 10/01 2234 B/P 117/80 10/01 2234 B/P Mean 92 10/01 2234 O2 Delivery Room air 10/01 2234 Temp 98.5 10/01 2234 Pulse 91 10/01 2234 Resp 16 10/01 2234 Review of Vital Signs Reviewed Physical Exam General/Const General/Const Awake, Alert, No acute distress, Well appearing, Well developed , Well hydrated, Well nourished, Cooperative, Not toxic appearing MS Head Head Normocephalic Eyes Eyes Atraumatic, PERRL, EOMI Ears/Nose/Throat Ears/Nose/Throat Atraumatic, Airway patent, Mucous membranes moist, Pharynx NL, No peritonsillar abscess, No pooling of secretions, No trismus, Tympanic membs NL, Ext aud canal NL, Mastoid area NL, Nose exam NL, No facial swelling MS Neck Neck Atraumatic, Supple, No meningismus, Full range of motion, No adenopathy Resp/Chest Respiratory/Chest Atraumatic, Breath sounds NL, Breath sounds = bilat, No respiratory distress Cardiovascular Cardiovascular Heart rate NL, Regular rhythm, Heart sounds NL Abdomen/GI Abdomen/GI Soft, Non-tender MS Back Back Inspection NL, Painless range of motion, Non-tender MS Upper Extrem Upper Extremity/MS Atraumatic, Inspection NL, Full range of motion MS Wrist/Hand Wrist/Hand Atraumatic, Inspection NL, Full range of motion MS Lower Extrem Lower Ext/Pelvis/MS Inspection NL, Full range of motion MS Ankle/Foot Ankle/Foot Inspection NL, Full range of motion Skin Skin Atraumatic, Color NL, No rash, Warm, Dry, Intact, Turgor NL, No swelling Neurologic Neurologic Oriented X3, Speech NL, No motor deficits, CN II - XII intact, Memory NL, Gait NL Psychiatric Psychiatric Affect NL, Mood NL Interpretation Diagnostics Lab Results Interpretation Results Laboratory Tests: 10/01 230 Serology COVID-19 PCR (Not Detected) Not Detected Recent Impressions: RADIOLOGY - XR CHEST 2 V 10/01 2008 Report Impression - Status: SIGNED Entered: 10/02/20192020 IMPRESSION: Normal chest x-ray. Impression By: Roberto Lopez M.D. Lab Imaging Statement Laboratory radiographic studies reviewed and considered in the medical decision-making. Recent Impressions: RADIOLOGY - XR CHEST 2 V 10/01 2008 Report Impression - Status: SIGNED Entered: 10/02/20192020 IMPRESSION: Normal chest x-ray. Impression By: Roberto Lopez M.D. Point of Care Testing Pulse Oximetry Pulse Ox % 98 On: Room air Interpretation Interpreted by il, Pulse oximetry normal Time 1958 Re-Evaluation MDM Re-Evaluation/Progress #1 Text/Dict Note The patient is comfortably sitting in the room, she appears well, nontoxic, vital signs are stable, discussed examination with the patient which was unremarkable, other than inferior turbinates were swollen, she did have clear nasal drainage. The lungs are clear to auscultation she was afebrile and not tachycardic and not hypoxic. Discussed check chest x-ray results with the patient which are unremarkable the patient has been given information about COVID-19, self quarantining and to hydrate herself, advised her to take Tylenol for any body aches, and to return to the ER for any worsening symptoms. The patient is comfortable with discharge verbalized understanding patient. The patient will signs are stable at discharge. Time of Re-Eval 2221 Re-Eval Status Unchanged Plan Post Re-Eval Plan discharge Patient Discharge Departure Vital Signs/Condition Vital Signs First Documented: Result Date Time Pulse Ox 98 10/01 1953 B/P 123/76 10/01 1953 B/P Mean 91 10/01 1953 O2 Delivery Room air 10/01 1953 Temp 98.5 10/01 1953 Pulse 104 10/01 1953 Resp 16 10/01 1953 Last Documented: Result Date Time Pulse Ox 99 10/01 2234 B/P 117/80 10/01 2234 B/P Mean 92 10/01 2234 O2 Delivery Room air 10/01 2234 Temp 98.5 10/01 2234 Pulse 91 10/01 2234 Resp 16 10/01 2234 All vital signs available at the time of this entry have been reviewed. Condition Stable Clinical Impression Time of Impression 2223 Disposition Decision Discharge )( Discharged to Home Yes )( Time 2223 )( Date 10/02/19 Discharge/Care Plan Counseled Regarding Diagnosis, Imaging studies, Need for follow-up, When to return to ED Prescriptions Hydrate, Tylenol, strict return precautions were given. Referrals No Primary or Family Physician (PCP) Discharge Note I have spoken with the patient and/or caregivers. I have explained the patient's condition, diagnoses and treatment plan based on the information available to me at this time. I have answered the patient's and/or caregiver's questions and addressed any concerns. The patient and/or caregivers have as good an understanding of the patient's diagnosis, condition and treatment plan as can be expected at this point. The vital signs have been stable. The patient's condition is stable and appropriate for discharge from the emergency department. The patient will pursue further outpatient evaluation with the primary care physician or other designated or consulting physician as outlined in the discharge instructions. The patient and/or caregivers are agreeable to this plan of care and follow-up instructions have been explained in detail. The patient and/or caregivers have received these instructions in written format and have expressed an understanding of the discharge instructions. The patient and/or caregivers are aware that any significant change in condition or worsening of symptoms should prompt an immediate return to this or the closest emergency department or a call to 911. Free Text Depart Notes Free Text Depart Notes Advised to follow-up with Kristi Salcedo, strict return precautions are given. Deni Grewal 10/06/19 0402: HPI-General Illness General Initial Greet Date/Time 10/02/191956 Re-Evaluation MDM Free Text MDM Notes Free Text MDM Notes Pt seen and eval with midlevel Agree with chart as documented unless noted otherwise by me Pt well appearing, non toxic Taking PO and ambulatory in ED Stable for dispo home with close f/u Pt agreeable with plan Patient Discharge Departure Clinical Impression Clinical Impression Primary Impression: Shortness of breath Secondary Impressions: Cough, Exposure to COVID-19 virus, Nasal congestion Supervising Physician Note MidLv/Doc Saw Pt 2 I have personally interviewed and examined the patient. All charts, labs, and imaging studies were reviewed. I agree with this PA/tread cutter findings, exam and plan. at 1446 at 0402 RPT #:[id number] END OF REPORT [facility] 2019-09-24 18:11:[address] [facility] ([facility]) EMERGENCY PROVIDER REPORT REPORT#:[id number] REPORT STATUS: Signed DATE:09/24/19 TIME: 1810 PATIENT: BRANDON ROLON UNIT #: [id number] ROOM/BED: AGE: 19 SEX: F PCP PHYS: No Primary or Family Physician SERVICE DT: AUTHOR: Giuliana Phan * ALL edits or amendments must be made on the electronic/computer document * HPI-Sore Throat General Confirmed Patient Yes Patient Type New patient Initial Greet Date/Time 09/24/191810 Assumed Care at Time 1830 Date 09/24/19 PCP none Presentation Chief Complaint Sore throat, Pain with swallowing Hx Obtained From Patient Onset Occurred Days ago (2) Symptom Duration Since onset Progression since Onset Waxes and wanes Context of Onset No sick contacts Location Tonsil R, Tonsil L Quality Painful Severity: Current Pain level 3 out of 10 Associated with Reports: Nausea. Denies: Ear pain/ache, Fever, Headache, Shortness of breath, Swelling, neck, Swelling, tongue, URI symptoms, Vomiting, Weakness. Associated Other Pt denies other symptoms Exacerbated by Swallowing Relieved by Nothing Context Related History Denies: Recent surgery, Tonsillectomy. Immunization Status General All up to date Recent Healthcare No recent doctor visit, No recent hospitalization Additional Context Patient's menstruation is irregular, she denies . Free Text HPI Notes Free Text HPI Notes 19-year-old patient with past medical history of depression, and seasonal allergies, presents to the ER complaining of seeing a white spot on her consult, associated with sore throat, and pain on swallowing this is been going on for 2 days occasionally she will have nausea, she reports her pain is 3/10 at this time, she denies any fevers, chills, vomiting, diarrhea, neck swelling, or any URI symptoms other than her usual seasonal allergy nasal congestion Review of Systems ROS Statements All systems rev neg except as marked. Focused Review of Systems Constitutional Denies: Chills, Fever. Ears/Nose/Throat Reports: Nasal congestion, Sore throat. Denies: Earache bilat. Respiratory Denies: Cough, non-productive, Cough, productive, Dyspnea on exertion, Hemoptysis, Parox nocturnal dyspnea, Pleuritic pain, Shortness of breath, Wheezing. GI Reports: Nausea. Denies: Abdominal pain, Diarrhea, Vomiting. Musculoskeletal Denies: Joint pain, Joint swelling. Skin Denies: Diaphoresis, Swelling. Neurologic Denies: Confusion, Headache. Past Medical History - Adult Stated Complaint WHITE DOTS ON TONSILS Allergies Coded Allergies: No Known Allergies (02/08/19) Home Medications Reported Medications FEXOFENADINE (PAMELA ALLERGY) 180 MG PO DAILY ESCITALOPRAM (LEXAPRO) Review of Nursing Notes Unavailable at this time Past Medical History: Reports: Depression/mood disorder. Additional Surgical History Adenoidectomy. Physical Exam Vital Signs Vital Signs First Documented: Result Date Time Pulse Ox 99 09/23 1809 B/P 115/81 09/23 1808 B/P Mean 92 09/23 180 O2 Delivery Room air 09/23 1808 Temp 97.6 09/23 180 Pulse 115 09/23 180 Resp 18 09/23 1808 Last Documented: Result Date Time Pulse Ox 99 09/23 1808 B/P 115/81 09/23 1808 B/P Mean 92 09/23 180 O2 Delivery Room air 09/23 1808 Temp 97.6 09/23 180 Pulse 115 09/23 180 Resp 18 09/23 1808 Review of Vital Signs Reviewed Focused PE General/Const General/Const Awake, Alert, No acute distress, Well appearing, Well developed , Well hydrated, Well nourished, Cooperative, Not toxic appearing Appearance/Presentation Obese, morbidly. Ears/Nose/Throat Ears/Nose/Throat Atraumatic, Airway patent, Mucous membranes moist, No peritonsillar abscess, No pooling of secretions, No trismus, Tympanic membs NL Pharynx/Tonsils/Uvula Tonsillar erythema R, Tonsillar erythema L, Tonsillar swelling R, Tonsillar swelling L. MS Neck Neck Atraumatic, Supple, No meningismus, Full range of motion, No adenopathy Resp/Chest Respiratory/Chest Atraumatic, Breath sounds NL, Breath sounds = bilat, No respiratory distress Cardiovascular Cardiovascular Regular rhythm, Heart sounds NL, No murmurs Abdomen/GI Abdomen/GI Soft, Non-tender Lymphatic Lymphatic No cervical adenopathy Skin Skin Atraumatic, Color NL, No rash, Warm, Dry, Intact, Turgor NL, No swelling Neurologic Neurologic Oriented X3, Speech NL, No motor deficits, Gait NL Interpretation Diagnostics Lab Results Interpretation Results Laboratory Tests: 09/24 1823 Serology Group A Strep Antibody (NEG SCREEN) NEG Microbiology: Date/Time Procedure - Status Source Growth 09/24 1823 Group A Streptococcus Screen (HOSSEIN) - RECD THROAT Lab Statement Laboratory studies reviewed and considered in the medical decision-making. Point of Care Testing Micro Interpretation Strep rapid - neg Pulse Oximetry Pulse Ox % 99 On: Room air Interpretation Interpreted by il, Pulse oximetry normal Time 1830 Re-Evaluation MDM Re-Evaluation/Progress Re-Evaluation/Progress Text/Dict Note The patient is comfortably sitting in the room, she appears well, nontoxic she is afebrile and not tachycardic, her strep is negative, examination was unremarkable other than mild erythema, and tonsillar swelling +1. She did not has had any lymphadenopathy, her Centor score was low so will not discharge her on any antibiotics supportive care is discussed with the patient advised to increase fluid intake take Tylenol and ibuprofen and saltwater gargles. The patient is advised to follow-up with Kristi Salcedo, referral is given to the patient and strict return precautions were given to return to the ER for any worsening pain, inability to eat or drink, or swallow or any neck swelling or fevers and chills. The patient is comfortable with discharge verbalized understanding. The patient's vital signs are stable at the time of discharge. Time of Re-Eval 1910 Re-Eval Status Unchanged Plan Post Re-Eval Plan discharge Patient Discharge Departure Vital Signs/Condition Vital Signs First Documented: Result Date Time Pulse Ox 99 09/23 1809 B/P 115/81 09/23 1809 B/P Mean 92 09/23 1809 O2 Delivery Room air 09/23 180 Temp 97.6 09/23 1809 Pulse 115 09/23 1809 Resp 18 09/23 1809 Last Documented: Result Date Time Pulse Ox 99 09/23 1809 B/P 115/81 09/23 1809 B/P Mean 92 09/23 1809 O2 Delivery Room air 09/23 180 Temp 97.6 09/23 1809 Pulse 115 09/23 1809 Resp 18 09/23 1809 All vital signs available at the time of this entry have been reviewed. Condition Stable Clinical Impression Clinical Impression Primary Impression: Pharyngitis Disposition Decision Discharge )( Discharged to Home Yes )( Time 1912 )( Date 09/24/19 Discharge/Care Plan Counseled Regarding Diagnosis, Lab results, Need for follow-up, When to return to ED Prescriptions Advised to take Tylenol, ibuprofen, for pain, and supportive care hydrate, and salt water gargles. Prescriptions Reviewed Alternative treatment Referrals No Primary or Family Physician (PCP) Discharge Note I have spoken with the patient and/or caregivers. I have explained the patient's condition, diagnoses and treatment plan based on the information available to me at this time. I have answered the patient's and/or caregiver's questions and addressed any concerns. The patient and/or caregivers have as good an understanding of the patient's diagnosis, condition and treatment plan as can be expected at this point. The vital signs have been stable. The patient's condition is stable and appropriate for discharge from the emergency department. The patient will pursue further outpatient evaluation with the primary care physician or other designated or consulting physician as outlined in the discharge instructions. The patient and/or caregivers are agreeable to this plan of care and follow-up instructions have been explained in detail. The patient and/or caregivers have received these instructions in written format and have expressed an understanding of the discharge instructions. The patient and/or caregivers are aware that any significant change in condition or worsening of symptoms should prompt an immediate return to this or the closest emergency department or a call to 911. at 1917 RPT #:[id number] END OF REPORT [facility] 2019-09-24 18:11:[address] [facility] ([facility]) EMERGENCY PROVIDER REPORT REPORT#:[id number] REPORT STATUS: Signed DATE:09/24/19 TIME: 1810 PATIENT: BRANDON ROLON UNIT #: [id number] ROOM/BED: AGE: 19 SEX: F PCP PHYS: No Primary or Family Physician SERVICE AUTHOR: Giuliana Phan * ALL edits or amendments must be made on the electronic/computer document * Giuliana Phan 09/24/19 181: HPI-Sore Throat General Confirmed Patient Yes Patient Type New patient Assumed Care at Time 1831 Date 09/24/19 PCP none Presentation Chief Complaint Sore throat, Pain with swallowing Hx Obtained From Patient Onset Occurred Days ago (2) Symptom Duration Since onset Progression since Onset Waxes and wanes Context of Onset No sick contacts Location Tonsil R, Tonsil L Quality Painful Severity: Current Pain level 3 out of 10 Associated with Reports: Nausea. Denies: Ear pain/ache, Fever, Headache, Shortness of breath, Swelling, neck, Swelling, tongue, URI symptoms, Vomiting, Weakness. Associated Other Pt denies other symptoms Exacerbated by Swallowing Relieved by Nothing Context Related History Denies: Recent surgery, Tonsillectomy. Immunization Status General All up to date Recent Healthcare No recent doctor visit, No recent hospitalization Additional Context Patient's menstruation is irregular, she denies . Free Text HPI Notes Free Text HPI Notes 19-year-old patient with past medical history of depression, and seasonal allergies, presents to the ER complaining of seeing a white spot on her consult, associated with sore throat, and pain on swallowing this is been going on for 2 days occasionally she will have nausea, she reports her pain is 3/10 at this time, she denies any fevers, chills, vomiting, diarrhea, neck swelling, or any URI symptoms other than her usual seasonal allergy nasal congestion Review of Systems ROS Statements All systems rev neg except as marked. Focused Review of Systems Constitutional Denies: Chills, Fever. Ears/Nose/Throat Reports: Nasal congestion, Sore throat. Denies: Earache bilat. Respiratory Denies: Cough, non-productive, Cough, productive, Dyspnea on exertion, Hemoptysis, Parox nocturnal dyspnea, Pleuritic pain, Shortness of breath, Wheezing. GI Reports: Nausea. Denies: Abdominal pain, Diarrhea, Vomiting. Musculoskeletal Denies: Joint pain, Joint swelling. Skin Denies: Diaphoresis, Swelling. Neurologic Denies: Confusion, Headache. Past Medical History - Adult Stated Complaint WHITE DOTS ON TONSILS Allergies Coded Allergies: No Known Allergies (02/08/19) Home Medications Reported Medications FEXOFENADINE (PAMELA ALLERGY) 180 MG PO DAILY ESCITALOPRAM (LEXAPRO) Review of Nursing Notes Unavailable at this time Past Medical History: Reports: Depression/mood disorder. Additional Surgical History Adenoidectomy. Physical Exam Vital Signs Vital Signs First Documented: Result Date Time Pulse Ox 99 09/23 1808 B/P 115/81 09/23 1808 B/P Mean 92 09/23 1808 O2 Delivery Room air 09/23 1808 Temp 97.6 09/23 1808 Pulse 115 09/23 180 Resp 18 09/23 1808 Last Documented: Result Date Time Pulse Ox 99 09/24 1915 B/P 114/75 09/24 1915 B/P Mean 88 09/24 1915 Temp 99.0 09/24 1915 Pulse 81 09/24 1915 Resp 16 09/24 1915 O2 Delivery Room air 09/23 1808 Review of Vital Signs Reviewed Focused PE General/Const General/Const Awake, Alert, No acute distress, Well appearing, Well developed , Well hydrated, Well nourished, Cooperative, Not toxic appearing Appearance/Presentation Obese, morbidly. Ears/Nose/Throat Ears/Nose/Throat Atraumatic, Airway patent, Mucous membranes moist, No peritonsillar abscess, No pooling of secretions, No trismus, Tympanic membs NL Pharynx/Tonsils/Uvula Tonsillar erythema R, Tonsillar erythema L, Tonsillar swelling R, Tonsillar swelling L. MS Neck Neck Atraumatic, Supple, No meningismus, Full range of motion, No adenopathy Resp/Chest Respiratory/Chest Atraumatic, Breath sounds NL, Breath sounds = bilat, No respiratory distress Cardiovascular Cardiovascular Regular rhythm, Heart sounds NL, No murmurs Abdomen/GI Abdomen/GI Soft, Non-tender Lymphatic Lymphatic No cervical adenopathy Skin Skin Atraumatic, Color NL, No rash, Warm, Dry, Intact, Turgor NL, No swelling Neurologic Neurologic Oriented X3, Speech NL, No motor deficits, Gait NL Interpretation Diagnostics Lab Results Interpretation Results Laboratory Tests: 09/24 1823 Serology Group A Strep Antibody (NEG SCREEN) NEG Microbiology: Date/Time Procedure - Status Source Growth 09/24 1823 Group A Streptococcus Screen (HOSSEIN) - RECD THROAT Lab Statement Laboratory studies reviewed and considered in the medical decision-making. Point of Care Testing Micro Interpretation Strep rapid - neg Pulse Oximetry Pulse Ox % 99 On: Room air Interpretation Interpreted by me, Pulse oximetry normal Time 1830 Re-Evaluation MDM Re-Evaluation/Progress Re-Evaluation/Progress Text/Dict Note The patient is comfortably sitting in the room, she appears well, nontoxic she is afebrile and not tachycardic, her strep is negative, examination was unremarkable other than mild erythema, and tonsillar swelling +1. She did not has had any lymphadenopathy, her Centor score was low so will not discharge her on any antibiotics supportive care is discussed with the patient advised to increase fluid intake take Tylenol and ibuprofen and saltwater gargles. The patient is advised to follow-up with Kristi Salcedo, referral is given to the patient and strict return precautions were given to return to the ER for any worsening pain, inability to eat or drink, or swallow or any neck swelling or fevers and chills. The patient is comfortable with discharge verbalized understanding. The patient's vital signs are stable at the time of discharge. Time of Re-Eval 1910 Re-Eval Status Unchanged Plan Post Re-Eval Plan discharge Patient Discharge Departure Vital Signs/Condition Vital Signs First Documented: Result Date Time Pulse Ox 99 09/23 1808 B/P 115/81 09/23 1808 B/P Mean 92 09/23 1808 O2 Delivery Room air 09/23 1808 Temp 97.6 09/23 1808 Pulse 115 09/23 1808 Resp 18 09/23 1808 Last Documented: Result Date Time Pulse Ox 99 09/24 1915 B/P 114/75 09/24 1915 B/P Mean 88 09/24 1915 Temp 99.0 09/24 1915 Pulse 81 09/24 1915 Resp 16 09/24 1915 O2 Delivery Room air 09/23 1808 All vital signs available at the time of this entry have been reviewed. Condition Stable Clinical Impression Clinical Impression Primary Impression: Pharyngitis Disposition Decision Discharge )( Discharged to Home Yes )( Time 1912 )( Date 09/24/19 Discharge/Care Plan Counseled Regarding Diagnosis, Lab results, Need for follow-up, When to return to ED Prescriptions Advised to take Tylenol, ibuprofen, for pain, and supportive care hydrate, and salt water gargles. Prescriptions Reviewed Alternative treatment Referrals No Primary or Family Physician (PCP) Discharge Note I have spoken with the patient and/or caregivers. I have explained the patient's condition, diagnoses and treatment plan based on the information available to me at this time. I have answered the patient's and/or caregiver's questions and addressed any concerns. The patient and/or caregivers have as good an understanding of the patient's diagnosis, condition and treatment plan as can be expected at this point. The vital signs have been stable. The patient's condition is stable and appropriate for discharge from the emergency department. The patient will pursue further outpatient evaluation with the primary care physician or other designated or consulting physician as outlined in the discharge instructions. The patient and/or caregivers are agreeable to this plan of care and follow-up instructions have been explained in detail. The patient and/or caregivers have received these instructions in written format and have expressed an understanding of the discharge instructions. The patient and/or caregivers are aware that any significant change in condition or worsening of symptoms should prompt an immediate return to this or the closest emergency department or a call to 911. Perry Ortiz 09/24/191951: HPI-Sore Throat General Initial Greet Date/Time 09/24/19 1811 Patient Discharge Departure Supervising Physician Note MidLv Saw Pt Alone I have reviewed the PA/JOB ORDER CLERK's note and plan of care. I was available for consultation as needed at all times during the patient's visit in the emergency department. I agree with the clinical impression, plan and disposition. at 1917 at 1952 RPT #:[id number] END OF REPORT [facility] 2019-04-05 15:26:[address] [facility] ([facility]) EMERGENCY PROVIDER REPORT REPORT#:[id number] REPORT STATUS: Signed DATE:04/05/19 TIME: 1525 PATIENT: BRANDON ROLON UNIT #: [id number] ROOM/BED: AGE: 19 SEX: F PCP PHYS: No Primary or Family Physician SERVICE AUTHOR: Agatha Hernandez * ALL edits or amendments must be made on the electronic/computer document * HPI- Female General Confirmed Patient Yes Patient Type New patient Initial Greet Date/Time 04/05/19 1352 Assumed Care at Time 1526 Date 04/05/19 Presentation Chief Complaint Dysuria, Vulva pain R, Vulva pain L Hx Obtained From Patient )( Sudden in Onset? No Onset Occurred Weeks ago (2) Symptom Duration Since onset Progression since Onset Waxes and wanes Context of Onset Spontaneous Caused by No trauma by history Quality Painful Radiation No: Does not radiate. Associated with Denies: Chills, Constipation, Fever, Nausea, Rash, Vomiting. Context Recent Healthcare No recent doctor visit, No recent hospitalization Free Text HPI Notes Free Text HPI Notes Patient is a 19-year-old female who presents to ER with concern of dysuria and vaginal pain for the past 2 weeks. Denies any fever, chills, urinary urgency or frequency, back pain, nausea, vomiting. Patient does admit to unprotected sex. Patient denies any chance of STD, denies any abnormal vaginal bleeding or discharge. Risk- Female Risk Stratification Ectopic Risk factors reviewed Review of Systems ROS Statements All systems rev neg except as marked. Focused Review of Systems Constitutional Denies: Chills, Fever. GI Denies: Abdominal pain, Constipation, Diarrhea, Nausea, Vomiting. Female Reports: Dysuria. Denies: Flank pain, Hematuria, Pelvic pain, , Urinary frequency, Urinary urgency, Urination decreased, Urination increased, Vaginal bleeding - abnl, Vaginal discharge. Musculoskeletal Denies: Back pain, Extremity pain, Extremity swelling. Skin Denies: Rash, Swelling. Neurologic Denies: Dizziness, Generalized weakness, Headache. Additional Review of Systems Respiratory Denies: Shortness of breath. Cardiovascular Denies: Chest pain. Past Medical History - Adult Stated Complaint UTI Allergies Coded Allergies: No Known Allergies (02/08/19) Home Medications Reported Medications FEXOFENADINE (PAMELA ALLERGY) 180 MG PO DAILY ESCITALOPRAM (LEXAPRO) Review of Nursing Notes Not reviewed nurse notes Smoking status for patients 13 years old or older: Never Smoker Physical Exam Vital Signs Vital Signs First Documented: Result Date Time Pulse Ox 100 04/05 1350 B/P 124/61 04/05 1350 B/P Mean 82 04/05 1350 O2 Delivery Room air 04/05 1350 Temp 98.4 04/05 1350 Pulse 114 04/05 1350 Resp 16 04/05 1350 Last Documented: Result Date Time Pulse Ox 100 04/05 1718 Temp 98.2 04/05 1718 Pulse 98 04/05 1718 Resp 17 04/05 1718 B/P 124/61 04/05 1350 B/P Mean 82 04/05 1350 O2 Delivery Room air 04/05 1350 Review of Vital Signs Reviewed Focused PE General/Const General/Const Awake, Alert, No acute distress, Well appearing Resp/Chest Respiratory/Chest Breath sounds NL, Breath sounds = bilat Cardiovascular Cardiovascular Heart rate NL, Regular rhythm Abdomen/GI Abdomen/GI Atraumatic, Soft, Non-tender, No guarding, BS normoactive MS Back Back Atraumatic, Inspection NL, Full range of motion, No CVA tenderness Skin Skin Atraumatic, Color NL, No rash, Warm, Dry, Intact, Turgor NL, No swelling Additional PE MS Head Head Atraumatic, Normocephalic Ears/Nose/Throat Ears/Nose/Throat Atraumatic, Airway patent, Mucous membranes moist Neurologic Neurologic Oriented X3, Speech NL, No motor deficits, No sensory deficits Psychiatric Psychiatric Affect NL, Mood NL Interpretation Diagnostics Lab Results Interpretation Results Laboratory Tests: 04/05 1351 Urines Urine Color (YELLOW DESCRIPT) YELLOW Urine Appearance (CLEAR DESCRIPT) CLEAR Urine pH (4.6 - 8.0 pH UNITS) 6.0 Ur Specific [place] (1.001 - 1.035 SG) 1.024 Urine Protein (<30 (1+) mg/dL) NEGATIVE (0) Urine Glucose (UA) ((NEG) 0 mg/dL) NEGATIVE (0) Urine Ketones ((NEG) 0 mg/dL) 0 (NEG) Urine Blood ((NEG) 0 mg/DL) NEGATIVE (0) Urine Nitrite (NEG SCREEN) NEGATIVE (0) Urine Bilirubin ((NEG) 0 mg/dL) NEGATIVE (0) Urine Urobilinogen (<2.0 (1+) mg/dL) NORMAL (0) Ur Leukocyte Esterase ((NEG) 0 Leuk/mcL) NEGATIVE (0) Urine RBC (0 - 3 #RBC/HPF) 0-3 Urine WBC (0 - 3 #WBC/HPF) 5-10 H Ur Squamous Epith Cells (NONE - SQepi /HPF) FEW >2 Urine Bacteria (NONE - FEW /HPF) TRACE >0 Urine Mucus (NONE /LPF) RARE Urine Culture Screen (Cult byWBC Criteria) Crit NOTmet CULT-N/A Urine HCG, Qual (NEG) NEGATIVE Urine Comment (SpecComment Notes) CLEAN CATCH SPEC Microbiology: Date/Time Procedure - Status Source Growth 04/05 1548 Wet Prep - COMP VAGINAL 04/05 1351 GC DNA Probe - COMP URINE 04/05 1351 Chlamydia DNA Probe (HOSSEIN) - COMP URINE Point of Care Testing Urinalysis Interpretation Positive leukocyte est Pulse Oximetry Pulse Ox % 100 On: Room air Interpretation Interpreted by me, Pulse oximetry normal Time 1531 Test Negative - urine HCG Free Text I D Notes Free Text I D Notes wet prep +bacteria Re-Evaluation MDM Free Text MDM Notes Free Text MDM Notes Discussed labs with patient and recommend empiric treatment for STDs. Patient agrees to plan. Patient referred to [facility] for follow-up and further STD testing. Patient states that she did not inform me before but she has been taking daily Bactrim twice daily for the past 5 days. ED Course Time 1629 Patient Course Stable Medication(s) Ordered Medication(s) Ordered: Anti-Infective Agents Sig/Ovidio Start time Last Medication Dose Route Stop Time Status Admin Azithromycin 1,000 MG X1ED STA 04/05 1630 DC PO 04/05 1631 Ceftriaxone Sodium 250 MG X1ED STA 04/05 1630 DC IM 04/05 1631 Gastrointestinal Drugs Sig/Ovidio Start time Last Medication Dose Route Stop Time Status Admin Ondansetron HCl 4 MG X1ED STA 04/05 1631 DC PO 04/05 1632 Local Anesthetics (Parenteral) Sig/Ovidio Start time Last Medication Dose Route Stop Time Status Admin Lidocaine HCl 2.1 ML X1ED STA 04/05 1631 DC IM 04/05 1632 Safety Concerns Patient is safe Patient Discharge Departure Vital Signs/Condition Vital Signs First Documented: Result Date Time Pulse Ox 100 04/05 1350 B/P 124/61 04/05 1350 B/P Mean 82 04/05 1350 O2 Delivery Room air 04/05 1350 Temp 98.4 04/05 1350 Pulse 114 04/05 1350 Resp 16 04/05 1350 Last Documented: Result Date Time Pulse Ox 100 04/05 1718 Temp 98.2 04/05 1718 Pulse 98 04/05 1718 Resp 17 04/05 1718 B/P 124/61 04/05 1350 B/P Mean 82 08 1350 O2 Delivery Room air 04/05 1350 All vital signs available at the time of this entry have been reviewed. Condition Stable Clinical Impression Clinical Impression Primary Impression: Dysuria Secondary Impressions: Vaginal pain Disposition Decision Discharge )( Discharged to Home Yes )( Time 1632 )( Date 04/05/19 Discharge/Care Plan Counseled Regarding Diagnosis, Lab results, Need for follow-up, When to return to ED Discharge Note I have spoken with the patient and/or caregivers. I have explained the patient's condition, diagnoses and treatment plan based on the information available to me at this time. I have answered the patient's and/or caregiver's questions and addressed any concerns. The patient and/or caregivers have as good an understanding of the patient's diagnosis, condition and treatment plan as can be expected at this point. The vital signs have been stable. The patient's condition is stable and appropriate for discharge from the emergency department. The patient will pursue further outpatient evaluation with the primary care physician or other designated or consulting physician as outlined in the discharge instructions. The patient and/or caregivers are agreeable to this plan of care and follow-up instructions have been explained in detail. The patient and/or caregivers have received these instructions in written format and have expressed an understanding of the discharge instructions. The patient and/or caregivers are aware that any significant change in condition or worsening of symptoms should prompt an immediate return to this or the closest emergency department or a call to 911. Quality Measures Preg Test for Women w/Abd Pain Female age 14-50, Complaint of abdominal pn, Any preg test ordered at 1355 RPT #:[id number] END OF REPORT [facility] 2019-04-05 15:26:[address] [facility] ([facility]) EMERGENCY PROVIDER REPORT REPORT#:[id number] REPORT STATUS: Signed DATE:04/05/19 TIME: 152 PATIENT: BRANDON ROLON UNIT #: [id number] ROOM/BED: AGE: 19 SEX: F PCP PHYS: No Primary or Family Physician SERVICE AUTHOR: Agatha Hernandez * ALL edits or amendments must be made on the electronic/computer document * Agatha Hernandez 04/05/19 1526: HPI- Female General Confirmed Patient Yes Patient Type New patient Assumed Care at Time 1526 Date 04/05/19 Presentation Chief Complaint Dysuria, Vulva pain R, Vulva pain L Hx Obtained From Patient )( Sudden in Onset? No Onset Occurred Weeks ago (2) Symptom Duration Since onset Progression since Onset Waxes and wanes Context of Onset Spontaneous Caused by No trauma by history Quality Painful Radiation No: Does not radiate. Associated with Denies: Chills, Constipation, Fever, Nausea, Rash, Vomiting. Context Recent Healthcare No recent doctor visit, No recent hospitalization Free Text HPI Notes Free Text HPI Notes Patient is a 19-year-old female who presents to ER with concern of dysuria and vaginal pain for the past 2 weeks. Denies any fever, chills, urinary urgency or frequency, back pain, nausea, vomiting. Patient does admit to unprotected sex. Patient denies any chance of STD, denies any abnormal vaginal bleeding or discharge. Risk- Female Risk Stratification Ectopic Risk factors reviewed Review of Systems ROS Statements All systems rev neg except as marked. Focused Review of Systems Constitutional Denies: Chills, Fever. GI Denies: Abdominal pain, Constipation, Diarrhea, Nausea, Vomiting. Female Reports: Dysuria. Denies: Flank pain, Hematuria, Pelvic pain, , Urinary frequency, Urinary urgency, Urination decreased, Urination increased, Vaginal bleeding - abnl, Vaginal discharge. Musculoskeletal Denies: Back pain, Extremity pain, Extremity swelling. Skin Denies: Rash, Swelling. Neurologic Denies: Dizziness, Generalized weakness, Headache. Additional Review of Systems Respiratory Denies: Shortness of breath. Cardiovascular Denies: Chest pain. Past Medical History - Adult Stated Complaint UTI Allergies Coded Allergies: No Known Allergies (02/08/19) Home Medications Reported Medications FEXOFENADINE (PAMELA ALLERGY) 180 MG PO DAILY ESCITALOPRAM (LEXAPRO) Review of Nursing Notes Not reviewed nurse notes Smoking status for patients 13 years old or older: Never Smoker Physical Exam Vital Signs Vital Signs First Documented: Result Date Time Pulse Ox 100 04/05 1350 B/P 124/61 04/05 1350 B/P Mean 82 04/05 1350 O2 Delivery Room air 04/05 1350 Temp 36.9 04/05 135 Pulse 114 04/05 1350 Resp 16 04/05 1350 Last Documented: Result Date Time Pulse Ox 100 04/05 1718 Temp 36.8 04/05 171 Pulse 98 04/05 1718 Resp 17 04/05 1718 B/P 124/61 04/05 1350 B/P Mean 82 04/05 1350 O2 Delivery Room air 04/05 1350 Review of Vital Signs Reviewed Focused PE General/Const General/Const Awake, Alert, No acute distress, Well appearing Resp/Chest Respiratory/Chest Breath sounds NL, Breath sounds = bilat Cardiovascular Cardiovascular Heart rate NL, Regular rhythm Abdomen/GI Abdomen/GI Atraumatic, Soft, Non-tender, No guarding, BS normoactive MS Back Back Atraumatic, Inspection NL, Full range of motion, No CVA tenderness Skin Skin Atraumatic, Color NL, No rash, Warm, Dry, Intact, Turgor NL, No swelling Additional PE MS Head Head Atraumatic, Normocephalic Ears/Nose/Throat Ears/Nose/Throat Atraumatic, Airway patent, Mucous membranes moist Neurologic Neurologic Oriented X3, Speech NL, No motor deficits, No sensory deficits Psychiatric Psychiatric Affect NL, Mood NL Interpretation Diagnostics Lab Results Interpretation Results Laboratory Tests: 04/05 135 Urines Urine Color (YELLOW DESCRIPT) YELLOW Urine Appearance (CLEAR DESCRIPT) CLEAR Urine pH (4.6 - 8.0 pH UNITS) 6.0 Ur Specific [place] (1.001 - 1.035 SG) 1.024 Urine Protein (<30 (1+) mg/dL) NEGATIVE (0) Urine Glucose (UA) ((NEG) 0 mg/dL) NEGATIVE (0) Urine Ketones ((NEG) 0 mg/dL) 0 (NEG) Urine Blood ((NEG) 0 mg/DL) NEGATIVE (0) Urine Nitrite (NEG SCREEN) NEGATIVE (0) Urine Bilirubin ((NEG) 0 mg/dL) NEGATIVE (0) Urine Urobilinogen (<2.0 (1+) mg/dL) NORMAL (0) Ur Leukocyte Esterase ((NEG) 0 Leuk/mcL) NEGATIVE (0) Urine RBC (0 - 3 #RBC/HPF) 0-3 Urine WBC (0 - 3 #WBC/HPF) 5-10 H Ur Squamous Epith Cells (NONE - SQepi /HPF) FEW >2 Urine Bacteria (NONE - FEW /HPF) TRACE >0 Urine Mucus (NONE /LPF) RARE Urine Culture Screen (Cult byWBC Criteria) Crit NOTmet CULT-N/A Urine HCG, Qual (NEG) NEGATIVE Urine Comment (SpecComment Notes) CLEAN CATCH SPEC Microbiology: Date/Time Procedure - Status Source Growth 04/05 1548 Wet Prep - COMP VAGINAL 04/05 1351 GC DNA Probe - COMP URINE 04/05 1351 Chlamydia DNA Probe (HOSSEIN) - COMP URINE Point of Care Testing Urinalysis Interpretation Positive leukocyte est Pulse Oximetry Pulse Ox % 100 On: Room air Interpretation Interpreted by me, Pulse oximetry normal Time 1531 Test Negative - urine HCG Free Text I D Notes Free Text I D Notes wet prep +bacteria Re-Evaluation MDM Free Text MDM Notes Free Text MDM Notes Discussed labs with patient and recommend empiric treatment for STDs. Patient agrees to plan. Patient referred to [facility] for follow-up and further STD testing. Patient states that she did not inform me before but she has been taking daily Bactrim twice daily for the past 5 days. ED Course Time 1629 Patient Course Stable Medication(s) Ordered Medication(s) Ordered: Anti-Infective Agents Sig/Ovidio Start time Last Medication Dose Route Stop Time Status Admin Azithromycin 1,000 MG X1ED STA 04/05 1630 DC PO 04/05 1631 Ceftriaxone Sodium 250 MG X1ED STA 04/05 1630 DC IM 04/05 1631 Gastrointestinal Drugs Sig/Ovidio Start time Last Medication Dose Route Stop Time Status Admin Ondansetron HCl 4 MG X1ED STA 04/05 1631 DC PO 04/05 1632 Local Anesthetics (Parenteral) Sig/Ovidio Start time Last Medication Dose Route Stop Time Status Admin Lidocaine HCl 2.1 ML X1ED STA 04/05 1631 DC IM 04/05 1632 Safety Concerns Patient is safe Patient Discharge Departure Vital Signs/Condition Vital Signs First Documented: Result Date Time Pulse Ox 100 04/05 1350 B/P 124/61 04/05 1350 B/P Mean 82 04/05 1350 O2 Delivery Room air 04/05 1350 Temp 36.9 04/05 1350 Pulse 114 04/05 1350 Resp 16 04/05 1350 Last Documented: Result Date Time Pulse Ox 100 04/05 1718 Temp 36.8 04/05 1718 Pulse 98 04/05 1718 Resp 17 04/05 1718 B/P 124/61 04/05 1350 B/P Mean 82 08 1350 O2 Delivery Room air 04/05 1350 All vital signs available at the time of this entry have been reviewed. Condition Stable Clinical Impression Clinical Impression Primary Impression: Dysuria Secondary Impressions: Vaginal pain Disposition Decision Discharge )( Discharged to Home Yes )( Time 163 )( Date 04/05/19 Discharge/Care Plan Counseled Regarding Diagnosis, Lab results, Need for follow-up, When to return to ED Discharge Note I have spoken with the patient and/or caregivers. I have explained the patient's condition, diagnoses and treatment plan based on the information available to me at this time. I have answered the patient's and/or caregiver's questions and addressed any concerns. The patient and/or caregivers have as good an understanding of the patient's diagnosis, condition and treatment plan as can be expected at this point. The vital signs have been stable. The patient's condition is stable and appropriate for discharge from the emergency department. The patient will pursue further outpatient evaluation with the primary care physician or other designated or consulting physician as outlined in the discharge instructions. The patient and/or caregivers are agreeable to this plan of care and follow-up instructions have been explained in detail. The patient and/or caregivers have received these instructions in written format and have expressed an understanding of the discharge instructions. The patient and/or caregivers are aware that any significant change in condition or worsening of symptoms should prompt an immediate return to this or the closest emergency department or a call to 911. Quality Measures Preg Test for Women w/Abd Pain Female age 14-50, Complaint of abdominal pn, Any preg test ordered Jer Armendariz 04/09/19 0629: HPI- Female General Initial Greet Date/Time 04/05/19 1352 Patient Discharge Departure Supervising Physician Note MidLv Saw Pt Alone I have reviewed the PA/JOB ORDER CLERK's note and plan of care. I was available for consultation as needed at all times during the patient's visit in the emergency department. I agree with the clinical impression, plan and disposition. at 1355 at 0630 RPT #:[id number] END OF REPORT [facility] 2019-02-08 09:46:[address] [facility] ([facility]) EMERGENCY PROVIDER REPORT REPORT#:[id number] REPORT STATUS: Signed DATE:02/08/19 TIME: 945 PATIENT: BRANDON ROLON UNIT #: [id number] ROOM/BED: AGE: 18 SEX: F PCP PHYS: No Primary or Family Physician SERVICE AUTHOR: Giuliana Phan * ALL edits or amendments must be made on the electronic/computer document * Giuliana Phan 02/08/19 0946: HPI-Sore Throat General Confirmed Patient Yes Initial Greet Date/Time 02/08/19 0946 Assumed Care at Time 0947 Date 02/08/19 Provider in Triage Greet Note I have greeted and performed a focused rapid initial assessment of this patient. A comprehensive ED assessment and evaluation of the patient, analysis of all test results, and completion of the medical decision-making process will be conducted by additional ED providers. HPI Chief Complaint sorethroat Onset Occurred Days ago (2) Severity Pain level 4 out of 10 PE General/Const No acute distress MSE Not Complete The medical screening exam is not complete. Further evaluation and/or treatment is required. The patient will be re-directed to the emergency department. Presentation Chief Complaint Sore throat Hx Obtained From Patient Onset Occurred Days ago (2) Past Medical History - Adult Stated Complaint SORE THROAT Physical Exam Vital Signs Review of Vital Signs Reviewed Michael Ruiz 02/08/19 1006: HPI-Sore Throat General Confirmed Patient Yes Patient Type New patient Presentation Chief Complaint Sore throat Hx Obtained From Patient Onset Occurred Days ago Symptom Duration Since onset Progression since Onset Unchanged Context of Onset No sick contacts Location Pharynx Quality Painful Severity: Current Pain level 4 out of 10 Associated with Denies: Cough, Fever, Headache. Exacerbated by Nothing Relieved by Nothing Context Related History Denies: Diabetes mellitus. Immunization Status General Unknown Recent Healthcare No recent doctor visit, No recent hospitalization Similar Sx Previous No /Sexual Hx Status Denies Free Text HPI Notes Free Text HPI Notes Patient is a 18-year-old female that reports 40 history of sore throat. Patient reports cough nasal congestion. Denies fever. Denies known exposures. Denies urinary symptoms or . Denies vomiting diarrhea. Review of Systems ROS Statements All systems rev neg except as marked. Focused Review of Systems Constitutional Denies: Chills, Fatigue, Fever. Ears/Nose/Throat Denies: Ear drainage bilat, Ear ringing bilat, Earache bilat, Hearing loss bilat. Respiratory Denies: Cough, non-productive, Cough, productive, Shortness of breath. GI Denies: Abdominal pain, Diarrhea, Vomiting. Musculoskeletal Denies: Back pain, Myalgia. Skin Denies: Rash. Neurologic Denies: Bladder dysfunction, Bowel dysfunction. Past Medical History - Adult Allergies Coded Allergies: No Known Allergies (02/08/19) Review of Nursing Notes Unavailable at this time Pt reports no significant: Past medical history, Past surgical history Physical Exam Vital Signs Vital Signs First Documented: Result Date Time Pulse Ox 99 02/08 0947 B/P 123/74 02/08 947 B/P Mean 90 02/08 947 Temp 98.3 02/08 947 Pulse 110 02/08 947 Resp 02/08 Last Documented: Result Date Time Pulse Ox 99 02/08 0947 B/P 123/74 02/08 947 B/P Mean 90 02/08 947 Temp 98.3 02/08 947 Pulse 110 02/08 947 Resp 18 02/08 947 Review of Vital Signs Reviewed Focused PE General/Const General/Const Awake, Alert, No acute distress, Well appearing, Well developed , Well hydrated, Well nourished, Cooperative, Not toxic appearing Ears/Nose/Throat Ears/Nose/Throat Atraumatic, Airway patent, Mucous membranes moist Pharynx/Tonsils/Uvula Pharyngeal erythema, Tonsillar erythema R, Tonsillar erythema L, Tonsillar swelling R, Tonsillar swelling L. Negative: Tonsillar exudate R, Tonsillar exudate L. MS Neck Neck Atraumatic, Supple, No meningismus, Full range of motion, No adenopathy Resp/Chest Respiratory/Chest Atraumatic, Breath sounds NL, Breath sounds = bilat, No respiratory distress Cardiovascular Cardiovascular Heart rate NL, Regular rhythm, Heart sounds NL, Cap refill not delayed, Peripheral circulation NL Abdomen/GI Abdomen/GI Atraumatic, Soft, Non-tender Lymphatic Lymphatic No cervical adenopathy Skin Skin Atraumatic, Color NL, No rash, Warm, Dry, Intact, Turgor NL, No swelling Neurologic Neurologic Oriented X3, Speech NL, No motor deficits, No sensory deficits, Cerebellar NL, Memory NL, Gait NL Interpretation Diagnostics Lab Results Interpretation Results Laboratory Tests: 02/08 949 Serology Group A Strep Antibody (NEG SCREEN) NEG Microbiology: Date/Time Procedure - Status Source Growth 02/08 949 Group A Streptococcus Screen (HOSSEIN) - RECD THROAT Lab Imaging Statement Laboratory radiographic studies reviewed and considered in the medical decision-making. Re-Evaluation MDM ED Course Medication(s) Ordered Medication(s) Ordered: Eye, Ear, Nose And Throat (Een Sig/Ovidio Start time Last Medication Dose Route Stop Time Status Admin Dexamethasone Sodium 10 MG ONCE ONE 02/08 1000 DC 02/08 Phosphate PO 02/08 1001 1035 Patient Discharge Departure Vital Signs/Condition Vital Signs First Documented: Result Date Time Pulse Ox 99 02/08 0947 B/P 123/74 02/08 947 B/P Mean 90 02/08 947 Temp 98.3 02/08 947 Pulse 110 02/08 947 Resp 18 02/08 947 Last Documented: Result Date Time Pulse Ox 99 02/08 0947 B/P 123/74 02/08 947 B/P Mean 90 02/08 947 Temp 98.3 02/08 947 Pulse 110 02/08 947 Resp 18 02/08 947 All vital signs available at the time of this entry have been reviewed. Condition Stable Clinical Impression Clinical Impression Primary Impression: Sore throat Disposition Decision Discharge )( Discharged to Home Yes )( Time 1017 )( Date 02/08/19 Discharge/Care Plan Counseled Regarding Diagnosis, Lab results, Prescriptions, Need for follow-up, When to return to ED Prescriptions medrol pack Prescriptions Reviewed Risks, Benefits, Alternative treatment Discharge Note I have spoken with the patient and/or caregivers. I have explained the patient's condition, diagnoses and treatment plan based on the information available to me at this time. I have answered the patient's and/or caregiver's questions and addressed any concerns. The patient and/or caregivers have as good an understanding of the patient's diagnosis, condition and treatment plan as can be expected at this point. The vital signs have been stable. The patient's condition is stable and appropriate for discharge from the emergency department. The patient will pursue further outpatient evaluation with the primary care physician or other designated or consulting physician as outlined in the discharge instructions. The patient and/or caregivers are agreeable to this plan of care and follow-up instructions have been explained in detail. The patient and/or caregivers have received these instructions in written format and have expressed an understanding of the discharge instructions. The patient and/or caregivers are aware that any significant change in condition or worsening of symptoms should prompt an immediate return to this or the closest emergency department or a call to 911. Quality Measures Pharyngitis Testing Group A Strep test doc at 1043 RPT #:[id number] END OF REPORT [facility] 2019-02-08 09:46:[address] [facility] ([facility]) EMERGENCY PROVIDER REPORT REPORT#:[id number] REPORT STATUS: Signed DATE:02/08/19 TIME: 945 PATIENT: BRANDON ROLON UNIT #: [id number] ROOM/BED: AGE: 18 SEX: F PCP PHYS: No Primary or Family Physician SERVICE AUTHOR: Giuliana Phan * ALL edits or amendments must be made on the electronic/computer document * Giuliana Phan 02/08/19 0946: HPI-Sore Throat General Confirmed Patient Yes Assumed Care at Time 946 Date 02/08/19 Provider in Triage Greet Note I have greeted and performed a focused rapid initial assessment of this patient. A comprehensive ED assessment and evaluation of the patient, analysis of all test results, and completion of the medical decision-making process will be conducted by additional ED providers. HPI Chief Complaint sorethroat Onset Occurred Days ago (2) Severity Pain level 4 out of 10 PE General/Const No acute distress MSE Not Complete The medical screening exam is not complete. Further evaluation and/or treatment is required. The patient will be re-directed to the emergency department. Presentation Chief Complaint Sore throat Hx Obtained From Patient Onset Occurred Days ago (2) Past Medical History - Adult Stated Complaint SORE THROAT Physical Exam Vital Signs Review of Vital Signs Reviewed Re-Evaluation MDM ED Course Medication(s) Ordered Medication(s) Ordered: Eye, Ear, Nose And Throat (Een Sig/Ovidio Start time Last Medication Dose Route Stop Time Status Admin Dexamethasone Sodium 10 MG ONCE ONE 02/08 1000 DC 02/08 Phosphate PO 02/08 1001 1035 Michael Ruiz 02/08/19 1006: HPI-Sore Throat General Confirmed Patient Yes Patient Type New patient Initial Greet Date/Time 02/08/19 0946 Presentation Chief Complaint Sore throat Hx Obtained From Patient Onset Occurred Days ago Symptom Duration Since onset Progression since Onset Unchanged Context of Onset No sick contacts Location Pharynx Quality Painful Severity: Current Pain level 4 out of 10 Associated with Denies: Cough, Fever, Headache. Exacerbated by Nothing Relieved by Nothing Context Related History Denies: Diabetes mellitus. Immunization Status General Unknown Recent Healthcare No recent doctor visit, No recent hospitalization Similar Sx Previous No /Sexual Hx Status Denies Free Text HPI Notes Free Text HPI Notes Patient is a 18-year-old female that reports 40 history of sore throat. Patient reports cough nasal congestion. Denies fever. Denies known exposures. Denies urinary symptoms or . Denies vomiting diarrhea. Review of Systems ROS Statements All systems rev neg except as marked. Focused Review of Systems Constitutional Denies: Chills, Fatigue, Fever. Ears/Nose/Throat Denies: Ear drainage bilat, Ear ringing bilat, Earache bilat, Hearing loss bilat. Respiratory Denies: Cough, non-productive, Cough, productive, Shortness of breath. GI Denies: Abdominal pain, Diarrhea, Vomiting. Musculoskeletal Denies: Back pain, Myalgia. Skin Denies: Rash. Neurologic Denies: Bladder dysfunction, Bowel dysfunction. Past Medical History - Adult Allergies Coded Allergies: No Known Allergies (02/08/19) Review of Nursing Notes Unavailable at this time Pt reports no significant: Past medical history, Past surgical history Physical Exam Vital Signs Vital Signs First Documented: Result Date Time Pulse Ox 99 02/08 947 B/P 123/74 02/08 947 B/P Mean 90 02/08 947 Temp 98.3 02/08 947 Pulse 110 02/08 947 Resp 18 02/08 947 Last Documented: Result Date Time Pulse Ox 99 02/08 0947 B/P 123/74 02/08 947 B/P Mean 90 02/08 947 Temp 98.3 02/08 947 Pulse 110 02/08 947 Resp 18 02/08 947 Review of Vital Signs Reviewed Focused PE General/Const General/Const Awake, Alert, No acute distress, Well appearing, Well developed , Well hydrated, Well nourished, Cooperative, Not toxic appearing Ears/Nose/Throat Ears/Nose/Throat Atraumatic, Airway patent, Mucous membranes moist Pharynx/Tonsils/Uvula Pharyngeal erythema, Tonsillar erythema R, Tonsillar erythema L, Tonsillar swelling R, Tonsillar swelling L. Negative: Tonsillar exudate R, Tonsillar exudate L. MS Neck Neck Atraumatic, Supple, No meningismus, Full range of motion, No adenopathy Resp/Chest Respiratory/Chest Atraumatic, Breath sounds NL, Breath sounds = bilat, No respiratory distress Cardiovascular Cardiovascular Heart rate NL, Regular rhythm, Heart sounds NL, Cap refill not delayed, Peripheral circulation NL Abdomen/GI Abdomen/GI Atraumatic, Soft, Non-tender Lymphatic Lymphatic No cervical adenopathy Skin Skin Atraumatic, Color NL, No rash, Warm, Dry, Intact, Turgor NL, No swelling Neurologic Neurologic Oriented X3, Speech NL, No motor deficits, No sensory deficits, Cerebellar NL, Memory NL, Gait NL Interpretation Diagnostics Lab Results Interpretation Results Laboratory Tests: 02/08 949 Serology Group A Strep Antibody (NEG SCREEN) NEG Microbiology: Date/Time Procedure - Status Source Growth 02/08 949 Group A Streptococcus Screen (HOSSEIN) - RECD THROAT Lab Imaging Statement Laboratory radiographic studies reviewed and considered in the medical decision-making. Patient Discharge Departure Vital Signs/Condition Vital Signs First Documented: Result Date Time Pulse Ox 99 02/08 0947 B/P 123/74 02/08 0947 B/P Mean 90 02/08 947 Temp 98.3 02/08 947 Pulse 110 02/08 09 Resp 18 02/08 947 Last Documented: Result Date Time Pulse Ox 99 02/08 0947 B/P 123/74 02/08 0947 B/P Mean 90 02/08 947 Temp 98.3 02/08 947 Pulse 110 02/08 947 Resp 18 02/08 947 All vital signs available at the time of this entry have been reviewed. Condition Stable Clinical Impression Clinical Impression Primary Impression: Sore throat Disposition Decision Discharge )( Discharged to Home Yes )( Time 1017 )( Date 02/08/19 Discharge/Care Plan Counseled Regarding Diagnosis, Lab results, Prescriptions, Need for follow-up, When to return to ED Prescriptions medrol pack Prescriptions Reviewed Risks, Benefits, Alternative treatment Discharge Note I have spoken with the patient and/or caregivers. I have explained the patient's condition, diagnoses and treatment plan based on the information available to me at this time. I have answered the patient's and/or caregiver's questions and addressed any concerns. The patient and/or caregivers have as good an understanding of the patient's diagnosis, condition and treatment plan as can be expected at this point. The vital signs have been stable. The patient's condition is stable and appropriate for discharge from the emergency department. The patient will pursue further outpatient evaluation with the primary care physician or other designated or consulting physician as outlined in the discharge instructions. The patient and/or caregivers are agreeable to this plan of care and follow-up instructions have been explained in detail. The patient and/or caregivers have received these instructions in written format and have expressed an understanding of the discharge instructions. The patient and/or caregivers are aware that any significant change in condition or worsening of symptoms should prompt an immediate return to this or the closest emergency department or a call to 911. Quality Measures Pharyngitis Testing Group A Strep test doc at 1043 at 1045 RPT #:[id number] END OF REPORT [facility] 2019-02-08 09:46:[address] [facility] ([facility]) EMERGENCY PROVIDER REPORT REPORT#:[id number] REPORT STATUS: Signed DATE:02/08/19 TIME: 945 PATIENT: BRANDON ROLON UNIT #: [id number] ROOM/BED: AGE: 18 SEX: F PCP PHYS: No Primary or Family Physician SERVICE AUTHOR: Giuliana Phan * ALL edits or amendments must be made on the electronic/computer document * Giuliana Phan 02/08/19 0946: HPI-Sore Throat General Confirmed Patient Yes Assumed Care at Time 0947 Date 02/08/19 Provider in Triage Greet Note I have greeted and performed a focused rapid initial assessment of this patient. A comprehensive ED assessment and evaluation of the patient, analysis of all test results, and completion of the medical decision-making process will be conducted by additional ED providers. HPI Chief Complaint sorethroat Onset Occurred Days ago (2) Severity Pain level 4 out of 10 PE General/Const No acute distress MSE Not Complete The medical screening exam is not complete. Further evaluation and/or treatment is required. The patient will be re-directed to the emergency department. Presentation Chief Complaint Sore throat Hx Obtained From Patient Onset Occurred Days ago (2) Past Medical History - Adult Stated Complaint SORE THROAT Physical Exam Vital Signs Review of Vital Signs Reviewed Re-Evaluation MDM ED Course Medication(s) Ordered Medication(s) Ordered: Eye, Ear, Nose And Throat (Een Sig/Ovidio Start time Last Medication Dose Route Stop Time Status Admin Dexamethasone Sodium 10 MG ONCE ONE 02/08 1000 DC 02/08 Phosphate PO 02/08 1001 1035 Michael Ruiz 02/08/19 1006: HPI-Sore Throat General Confirmed Patient Yes Patient Type New patient Presentation Chief Complaint Sore throat Hx Obtained From Patient Onset Occurred Days ago Symptom Duration Since onset Progression since Onset Unchanged Context of Onset No sick contacts Location Pharynx Quality Painful Severity: Current Pain level 4 out of 10 Associated with Denies: Cough, Fever, Headache. Exacerbated by Nothing Relieved by Nothing Context Related History Denies: Diabetes mellitus. Immunization Status General Unknown Recent Healthcare No recent doctor visit, No recent hospitalization Similar Sx Previous No /Sexual Hx Status Denies Free Text HPI Notes Free Text HPI Notes Patient is a 18-year-old female that reports 40 history of sore throat. Patient reports cough nasal congestion. Denies fever. Denies known exposures. Denies urinary symptoms or . Denies vomiting diarrhea. Review of Systems ROS Statements All systems rev neg except as marked. Focused Review of Systems Constitutional Denies: Chills, Fatigue, Fever. Ears/Nose/Throat Denies: Ear drainage bilat, Ear ringing bilat, Earache bilat, Hearing loss bilat. Respiratory Denies: Cough, non-productive, Cough, productive, Shortness of breath. GI Denies: Abdominal pain, Diarrhea, Vomiting. Musculoskeletal Denies: Back pain, Myalgia. Skin Denies: Rash. Neurologic Denies: Bladder dysfunction, Bowel dysfunction. Past Medical History - Adult Allergies Coded Allergies: No Known Allergies (02/08/19) Review of Nursing Notes Unavailable at this time Pt reports no significant: Past medical history, Past surgical history Physical Exam Vital Signs Vital Signs First Documented: Result Date Time Pulse Ox 99 02/08 0947 B/P 123/74 02/08 0947 B/P Mean 90 02/08 0947 Temp 36.8 02/08 0947 Pulse 110 02/08 0947 Resp 18 02/08 0947 O2 Delivery Room air 02/08 1054 Last Documented: Result Date Time Pulse Ox 100 02/08 1054 B/P 118/74 02/08 1054 B/P Mean 88 02/08 1054 O2 Delivery Room air 02/08 1054 Temp 36.8 02/08 1054 Pulse 97 02/08 1054 Resp 18 02/08 1054 Review of Vital Signs Reviewed Focused PE General/Const General/Const Awake, Alert, No acute distress, Well appearing, Well developed , Well hydrated, Well nourished, Cooperative, Not toxic appearing Ears/Nose/Throat Ears/Nose/Throat Atraumatic, Airway patent, Mucous membranes moist Pharynx/Tonsils/Uvula Pharyngeal erythema, Tonsillar erythema R, Tonsillar erythema L, Tonsillar swelling R, Tonsillar swelling L. Negative: Tonsillar exudate R, Tonsillar exudate L. MS Neck Neck Atraumatic, Supple, No meningismus, Full range of motion, No adenopathy Resp/Chest Respiratory/Chest Atraumatic, Breath sounds NL, Breath sounds = bilat, No respiratory distress Cardiovascular Cardiovascular Heart rate NL, Regular rhythm, Heart sounds NL, Cap refill not delayed, Peripheral circulation NL Abdomen/GI Abdomen/GI Atraumatic, Soft, Non-tender Lymphatic Lymphatic No cervical adenopathy Skin Skin Atraumatic, Color NL, No rash, Warm, Dry, Intact, Turgor NL, No swelling Neurologic Neurologic Oriented X3, Speech NL, No motor deficits, No sensory deficits, Cerebellar NL, Memory NL, Gait NL Interpretation Diagnostics Lab Results Interpretation Results Laboratory Tests: 02/08 949 Serology Group A Strep Antibody (NEG SCREEN) NEG Microbiology: Date/Time Procedure - Status Source Growth 02/08 949 Group A Streptococcus Screen (HOSSEIN) - RECD THROAT Lab Imaging Statement Laboratory radiographic studies reviewed and considered in the medical decision-making. Patient Discharge Departure Vital Signs/Condition Vital Signs First Documented: Result Date Time Pulse Ox 99 02/08 0947 B/P 123/74 02/08 0947 B/P Mean 90 02/08 0947 Temp 36.8 02/08 0947 Pulse 110 02/08 0947 Resp 18 02/08 0947 O2 Delivery Room air 02/08 1054 Last Documented: Result Date Time Pulse Ox 100 02/08 1054 B/P 118/74 02/08 1054 B/P Mean 88 02/08 1054 O2 Delivery Room air 02/08 1054 Temp 36.8 02/08 1054 Pulse 97 02/08 1054 Resp 18 02/08 1054 All vital signs available at the time of this entry have been reviewed. Condition Stable Clinical Impression Clinical Impression Primary Impression: Sore throat Disposition Decision Discharge )( Discharged to Home Yes )( Time 1017 )( Date 02/08/19 Discharge/Care Plan Counseled Regarding Diagnosis, Lab results, Prescriptions, Need for follow-up, When to return to ED Prescriptions medrol pack Prescriptions Reviewed Risks, Benefits, Alternative treatment Discharge Note I have spoken with the patient and/or caregivers. I have explained the patient's condition, diagnoses and treatment plan based on the information available to me at this time. I have answered the patient's and/or caregiver's questions and addressed any concerns. The patient and/or caregivers have as good an understanding of the patient's diagnosis, condition and treatment plan as can be expected at this point. The vital signs have been stable. The patient's condition is stable and appropriate for discharge from the emergency department. The patient will pursue further outpatient evaluation with the primary care physician or other designated or consulting physician as outlined in the discharge instructions. The patient and/or caregivers are agreeable to this plan of care and follow-up instructions have been explained in detail. The patient and/or caregivers have received these instructions in written format and have expressed an understanding of the discharge instructions. The patient and/or caregivers are aware that any significant change in condition or worsening of symptoms should prompt an immediate return to this or the closest emergency department or a call to 911. Quality Measures Pharyngitis Testing Group A Strep test doc Jer Armendariz 02/08/19 1708: HPI-Sore Throat General Initial Greet Date/Time 02/08/19 0946 Patient Discharge Departure Supervising Physician Note MidLv Saw Pt Alone I have reviewed the PA/JOB ORDER CLERK's note and plan of care. I was available for consultation as needed at all times during the patient's visit in the emergency department. I agree with the clinical impression, plan and disposition. at 1043 at 1045 at 1706 [facility] #:[id number] END OF REPORT [facility]
[2025-01-16] MEDS ORDERED: METOCLOPRAMIDE 10 MG/2mL INJ ONE (17:37)
[2025-01-16] MEDS ORDERED: NA CHLORIDE 0.9% 50 ML ONE (17:37)
[2025-01-16] MEDS ORDERED: KETOROLAC 30 MG/ML INJ ONE (17:37)
[2025-01-16] MEDS ORDERED: DIPHENHYDRAMINE 50 MG/ML VIAL ONE (17:37)
[2025-01-16] MEDS ORDERED: NA CHLORIDE 0.9% 1,000 ML ONE (17:38)
--- NOTE | 2025-01-16 18:04 | RAD REPORT ---
EXAM: CT Head Brain Wo Cont HISTORY: HEADACHE COMPARISON: None TECHNIQUE: Multiple contiguous axial images were obtained for a CT of the brain without contrast. Sag ittal and coronal reformats were performed. One or more of the following dose reduction techniques were used: Automated exposure control, adjus tment of the mA and kV according to patient size, and iterative reconstruction. Unless otherwise specified, incidental findings do not require dedicated imaging follow-up. FINDINGS: No evidence of hydrocephalus, intracranial hemorrhage, or extra-axial fluid collection. The brain is normal in morphology. The calvarium is intact. The visualized paranasal sinuses and mastoid air cells are essentially clear . IMPRESSION: No evidence of acute intracranial abnormality.
[2025-01-16 18:13] LABS: Absolute Lymphocytes (CBC) 1.7 K/uL (0.7-4.9); Hematocrit 36.9 % (36.0-45.0); Hemoglobin 12.6 g/dL (12.0-15.0); MCH 28.1 pg (27.0-35.0); MCHC 34.0 g/dL (32.0-36.0); MCV 82.5 fL (80-100); MPV 8.7 fL (7.6-11.3); Nucleated RBC Absolute Count 0.0 (0-0); Nucleated Red Blood Cells % 0.1 % (0-0); RBC Red Blood Cell Count 4.47 M/uL (3.86-4.86); White Blood Count 6.50 thou/uL (4.3-10.9)
[2025-01-16 18:27] LABS: Anion Gap 8.5 mEq/L (5.0-15.0); BUN Blood Urea Nitrogen 11.0 mg/dL (7-18); Glucose Level 74.0 mg/dL (74-106); Potassium 3.5 mEq/L (3.5-5.1)
--- NOTE | 2025-01-16 18:49 | EDPHYS ---
Physician Documentation [facility] Name: Don Tolentino Age: 24 yrs Sex: Female : 2000 Arrival Date: 01/16/2025 Time: 16:49 Bed 4 Private MD: ED Physician Julian Marina HPI: 01/16 17:43 This 24 yrs old Female presents to ER via Ambulatory with complaints of Headache, ms3 Vision Problem. 17:43 24-year-old female with no past medical history presents to the emergency department ms3 for right-sided headache and vision deficits. Patient states that she developed a right-sided headache and then 30 minutes later noticed the right side of her vision was gone. Patient endorses headache. Patient states she is having moderate to severe discomfort. She denies any alleviating or inciting factors. Patient denies nausea, vomiting.. 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 - Infectious Disease History:: Denies. - Social history:: Smoking status: Patient denies any tobacco usage or history of. ROS: 17:43 Constitutional: Negative for fever, and chills. Cardiovascular: Negative for chest ms3 pain, and palpitations. Respiratory: Negative for shortness of breath, cough, wheezing, and pleuritic chest pain, Abdomen/GI: Negative for abdominal pain, nausea, vomiting, diarrhea, and constipation, MS/Extremity: Negative for injury and deformity, Skin: Negative for injury, rash, and discoloration, 17:43 Eyes: Positive for visual disturbance, 17:43 Neuro: Positive for headache, Exam: 17:43 Constitutional: This is a well developed, well nourished patient who is awake, alert, ms3 and in no acute distress. Head/Face: Normocephalic, atraumatic. Cardiovascular: Regular rate and rhythm with a normal S1 and S2. No gallops, murmurs, or rubs. Normal PMI, no JVD. No pulse deficits. Respiratory: Lungs have equal breath sounds bilaterally, clear to auscultation and percussion. No rales, rhonchi or wheezes noted. No increased work of breathing, no retractions or nasal flaring. Abdomen/GI: Soft, non-tender, with normal bowel sounds. No distension or tympany. No guarding or rebound. No evidence of tenderness throughout. 17:43 Eyes: Visual price: Right eye lateral vision deficit. 17:43 Neuro: Orientation: is normal, to person, place, time \T\ situation. Mentation: is normal, Memory: is normal, Cranial nerves: CN I not tested, CN II- XII are normal as tested, Cerebellar function: is grossly normal, normal finger to nose testing, heel to felix testing is normal, Motor: is normal, Sensation: is normal, Gait: is steady, at a normal pace, Vital Signs: 16:54 BP 122 / 69; Pulse 116; Resp 16; Temp 98.4; Pulse Ox 100% on R/A; Weight 122.92 kg; dd2 Pain 6/10; 18:30 BP 134 / 90; Pulse 70; Resp 18; Pulse Ox 100% on R/A; cc6 16:54 Pain Scale: Adult dd2 NIH Stroke Scale Scores: 17:43 NIHSS Score: 1 ms3 MDM: 16:56 Medical Screening Exam initiated ms3 17:47 Differential diagnosis: migraine, neoplasm, vasomotor headache. ms3 18:57 Data reviewed: vital signs, nurses notes, lab test result(s), radiologic studies, and ms3 as a result, I will discharge patient. I considered the following discharge prescriptions or medication management in the emergency department Medications were administered in the Emergency Department. See MAR. Independent interpretation of the following test(s) in the Emergency Department CT Scan: My interpretation is CT head without contrast images reviewed by me did not reveal intracranial hemorrhage. Counseling: I had a detailed discussion with the patient and/or guardian regarding the historical points, exam findings, and any diagnostic results supporting the discharge/admit diagnosis, lab results, radiology results, the need for outpatient follow up, to return to the emergency department if symptoms worsen or persist or if there are any questions or concerns that arise at home. Special discussion: I discussed with the patient/guardian in detail that at this point there is no indication for admission to the hospital. It is understood, however, that if the symptoms persist or worsen the patient needs to return immediately for re-evaluation. ED course: Discussed case with Dr. Broussard and patient with possible complex migraine. On reevaluation patient symptoms have improved, patient is alert and orient x 4, no apparent distress, nontoxic-appearing, speaking full sentences. Hemianopsia has resolved. Patient states her headache is improved. Patient remains neurologically intact. Patient to follow-up Dr. Broussard in 2 to 3 days. All questions were answered. Return precautions were discussed to include numbness, difficulty speaking, difficulty walking, weakness, or any other concerns.. 01/16 16:58 Order name: CBC with Diff; Complete Time: 18:36 ms3 01/16 16:58 Order name: BMP; Complete Time: 18:36 ms3 01/16 16:58 Order name: CT Head Brain wo Cont; Complete Time: 18:36 ms3 Administered Medications: 17:45 Drug: metoCLOPramide IVP 10 mg IVP once; over 1 to 2 minutes Route: IVP; Site: right cc6 antecubital; 18:53 Follow up: Response: No adverse reaction cc6 17:45 Drug: diphenhydrAMINE IVP 25 mg IVP once Route: IVP; Site: right antecubital; cc6 18:53 Follow up: Response: No adverse reaction cc6 17:45 Drug: Ketorolac IVP 10 mg 10 mg IVP once Route: IVP; Site: right antecubital; cc6 18:53 Follow up: Response: No adverse reaction cc6 17:45 Drug: Decadron - Dexamethasone IVP 10 mg IVP once Route: IVP; Site: right antecubital; cc6 18:52 Follow up: Response: No adverse reaction cc6 17:45 Drug: NS 0.9% IV 1000 ml IV at 1 bolus Per protocol; to be given as a bolus over 60 cc6 minutes Route: IV; Rate: 1 bolus; Site: right antecubital; Disposition Summary: 01/16/25 18:49 Discharge Ordered Notes: Location: Home ms3 Condition: Stable ms3 Diagnosis - Headache ms3 - Unspecified visual disturbance ms3 Followup: ms3 - With: Mauro Broussard MD - When: 2 - 3 days - Reason: Recheck today's complaints Discharge Instructions: - Discharge Summary Sheet ms3 - General Headache Without Cause ms3 Forms: - Medication Reconciliation Form ms3 - Antibiotic Education ms3 - Prescription Opioid Use ms3 - Patient Portal Instructions ms3 - Leadership Thank You Letter ms3 NIH Stroke Scale - NIH Stroke Score Date: 01/16/2025 Time: 17:43 Total Score = 1 10. Dysarthria (speech clarity - read or repeat words) - 0(Normal) 11. Extinction and Inattention (visual/tactile/auditory/spatial/personal) - 0(No abnormality) 1a. Level of Consciousness (LOC) - 0(Alert) 1b. Level of Consciousness (LOC) (Month \T\ Age) - 0(Both) 1c. LOC Commands (Open \T\ Closes Eyes/Travel Ticketing Reviewer) - 0(Both) 2. Best Gaze (Lateral Gaze Paresis) - 0(Normal) 3. Visual Field Loss - 1(Partial hemianopia) 4. Facial Palsy 5a. Left Arm: Motor (10-second hold) - (No drift) 5b. Right Arm: Motor (10-second hold) - 0(No drift) 6a. Left Leg: Motor (5-second hold - always test supine) - 0(No drift) 6b. Right Leg: Motor (5-second hold - always test supine) - 0(No drift) 7. Limb Ataxia (finger/nose \T\ heel/felix - test with eyes open) - 0(Absent) 8. Sensory Loss (pinprick arms/legs/face) - 0(Normal) 9. Best Language: Aphasia (description/naming/reading) - 0(No aphasia) Initials: ms3 Signatures: Dispatcher [employer] EDMS Julian Marina DO DO ms3 Hailey Salgado RN RN cc6 HANH DE LA GARZA RN RN dd2 Corrections: (The following items were deleted from the chart) 16:57 16:56 PSHx: None; dd2 dd2
--- NOTE | 2025-01-16 18:49 | ER ---
Nurse's Notes [facility] Name: Don Tolentino Age: 24 yrs Sex: Female : 2000 Arrival Date: 01/16/2025 Time: 16:49 Bed 4 Private MD: Diagnosis: Headache;Unspecified visual disturbance Presentation: 01/16 16:54 Chief complaint: Patient states: SHARP PAIN ON RT SIDE OF HEAD AND BRIGHT "LIGHT" IN RT dd2 EYE AND NOW BLURRY. REPORTS HEADACHE RT SIDE. Coronavirus screen: At this time, the client does not indicate any symptoms associated with coronavirus-19. Ebola Screen: No symptoms or risks identified at this time. Initial Sepsis Screen: Does the patient meet any 2 criteria? No. Patient's initial sepsis screen is negative. Does the patient have a suspected source of infection? No. Patient's initial sepsis screen is negative. Risk Assessment: Do you want to hurt yourself or someone else? Patient reports no desire to harm self or others. Onset of symptoms was January 16, 2025. 16:54 Method Of Arrival: Ambulatory dd2 16:54 Acuity: MALGORZATA 3 dd2 Triage Assessment: 16:57 Headache History: The patient has had previous headaches and this one is different than dd2 previous episodes. General: Appears in no apparent distress. uncomfortable, Behavior is calm, cooperative, appropriate for age. Pain: Complains of pain in right frontal area, right side of the back of head and right temporal area Pain currently is 6 out of 10 on a pain scale. Pain began suddenly, Also complains of no other associated symptoms. Neuro: Level of Consciousness is awake, alert, obeys commands, Oriented to person, place, time, situation, Appropriate for age Reports headache in right. 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 - Infectious Disease History:: Denies. - Social history:: Smoking status: Patient denies any tobacco usage or history of. Screenin:45 [facility] ED Fall Risk Assessment (Adult) History of falling in the last 3 months, cc6 including since admission No falls in past 3 months (0 pts) Confusion or Disorientation No (0 pts) Intoxicated or Sedated No (0 pts) Impaired Gait No (0 pts) Mobility Assist Device Used No (0 pt) Altered Elimination No (0 pt) Score/Fall Risk Level 0 - 2 = Low Risk Oriented to surroundings, Maintained a safe environment, Hourly rounding (assess needs \\T\\ fall precautionary measures) done. Abuse screen: Denies threats or abuse. Denies injuries from another. Nutritional screening: No deficits noted. Tuberculosis screening: No symptoms or risk factors identified. Assessment: 17:40 General: Appears in no apparent distress. comfortable, Behavior is calm, cooperative, cc6 appropriate for age. Pain: Complains of pain in forehead and right cheondoism Pain does not radiate. Pain currently is 8 out of 10 on a pain scale. Quality of pain is described as sharp. Neuro: Level of Consciousness is awake, alert, obeys commands, Oriented to person, place, time, situation. Cardiovascular: Patient's skin is warm and dry. Respiratory: Airway is patent Respiratory effort is even, unlabored, Respiratory pattern is regular, symmetrical. GI: No signs and/or symptoms were reported involving the gastrointestinal system. : No signs and/or symptoms were reported regarding the genitourinary system. EENT: No signs and/or symptoms were reported regarding the EENT system. Derm: No signs and/or symptoms reported regarding the dermatologic system. Musculoskeletal: No signs and/or symptoms reported regarding the musculoskeletal system. Vital Signs: 16:54 BP 122 / 69; Pulse 116; Resp 16; Temp 98.4; Pulse Ox 100% on R/A; Weight 122.92 kg; dd2 Pain 6/10; 18:30 BP 134 / 90; Pulse 70; Resp 18; Pulse Ox 100% on R/A; cc6 16:54 Pain Scale: Adult dd2 NIH Stroke Scale Scores: 17:43 NIHSS Score: 1 ms3 ED Course: 16:51 Patient arrived in ED. cj3 16:53 Julian Marina DO is Attending Physician. dd2 16:56 Triage completed. dd2 16:57 Arm band placed on left wrist. dd2 17:29 Hailey Salgado, CELIA is Primary Nurse. cc6 17:30 CT Head Brain wo Cont In Process Unspecified. EDMS 17:40 Provided Education on: use of call light. cc6 17:40 Patient has correct armband on for positive identification. Bed in low position. Side cc6 rails up X 1. 17:40 Inserted saline lock: 20 gauge in right antecubital area, using aseptic technique. cc6 Blood collected. Flushed with 10 mL NS. 18:47 No provider procedures requiring assistance completed. cc6 18:48 Mauro Broussard MD is Referral Physician. ms3 19:17 IV discontinued, intact, bleeding controlled, No redness/swelling at site. Pressure ha1 dressing applied. Administered Medications: 17:45 Drug: metoCLOPramide IVP 10 mg IVP once; over 1 to 2 minutes Route: IVP; Site: right cc6 antecubital; 18:53 Follow up: Response: No adverse reaction cc6 17:45 Drug: diphenhydrAMINE IVP 25 mg IVP once Route: IVP; Site: right antecubital; cc6 18:53 Follow up: Response: No adverse reaction cc6 17:45 Drug: Ketorolac IVP 10 mg 10 mg IVP once Route: IVP; Site: right antecubital; cc6 18:53 Follow up: Response: No adverse reaction cc6 17:45 Drug: Decadron - Dexamethasone IVP 10 mg IVP once Route: IVP; Site: right antecubital; cc6 18:52 Follow up: Response: No adverse reaction cc6 17:45 Drug: NS 0.9% IV 1000 ml IV at 1 bolus Per protocol; to be given as a bolus over 60 cc6 minutes Route: IV; Rate: 1 bolus; Site: right antecubital; Medication: 18:51 VIS not applicable for this client. cc6 Outcome: 18:49 Discharge ordered by . ms3 19:16 Discharged to home ambulatory, ha1 19:16 Condition: stable 19:16 Discharge instructions given to patient, Instructed on discharge instructions, follow up and referral plans. Demonstrated understanding of instructions, follow-up care, 19:17 Patient left the ED. ha1 NIH Stroke Scale - NIH Stroke Score Date: 01/16/2025 Time: 17:43 Total Score = 1 10. Dysarthria (speech clarity - read or repeat words) - 0(Normal) 11. Extinction and Inattention (visual/tactile/auditory/spatial/personal) - 0(No abnormality) 1a. Level of Consciousness (LOC) - 0(Alert) 1b. Level of Consciousness (LOC) (Month \\T\\ Age) - 0(Both) 1c. LOC Commands (Open \\T\\ Closes Eyes/Internal Control Manager) - 0(Both) 2. Best Gaze (Lateral Gaze Paresis) - 0(Normal) 3. Visual Field Loss - 1(Partial hemianopia) 4. Facial Palsy 5a. Left Arm: Motor (10-second hold) - (No drift) 5b. Right Arm: Motor (10-second hold) - 0(No drift) 6a. Left Leg: Motor (5-second hold - always test supine) - 0(No drift) 6b. Right Leg: Motor (5-second hold - always test supine) - 0(No drift) 7. Limb Ataxia (finger/nose \\T\\ heel/felix - test with eyes open) - 0(Absent) 8. Sensory Loss (pinprick arms/legs/face) - 0(Normal) 9. Best Language: Aphasia (description/naming/reading) - 0(No aphasia) Initials: ms3 Signatures: Dispatcher [employer] EDMS Julian Marina, DO ms3 Rosa Isela Ferguson RN RN ha1 Hailey Salgado, RN RN cc6 HANH DE LA GARZA RN RN dd2 Judy Graf cj3 Corrections: (The following items were deleted from the chart) 16:57 16:56 PSHx: None; dd2 dd2 18:52 16:52 General: Appears in no apparent distress. comfortable, Behavior is calm, cc6 cooperative, appropriate for age, cc6 18:52 16:52 Pain: Complains of pain in forehead and right cheondoism Pain does not cc6 radiate. Pain currently is 8 out of 10 on a pain scale. Quality of pain is described as sharp, cc 18:52 16:52 Neuro: Level of Consciousness is awake, alert, obeys commands, Oriented cc6 to person, place, time, situation, [facility] 18:52 16:52 Cardiovascular: Patient's skin is warm and dry. cc6 cc6 18:52 16:52 Respiratory: Airway is patent Respiratory effort is even, unlabored, cc6 Respiratory pattern is regular, symmetrical, cc 18:52 16:52 GI: No signs and/or symptoms were reported involving the gastrointestinal cc6 system. cc6 18:52 16:52 : No signs and/or symptoms were reported regarding the genitourinary cc6 system. cc6 :52 16:52 EENT: No signs and/or symptoms were reported regarding the EENT system. cc6 cc6 18:52 16:52 Derm: No signs and/or symptoms reported regarding the dermatologic cc6 system. cc6 :52 16:52 Musculoskeletal: No signs and/or symptoms reported regarding the cc6 musculoskeletal system. cc6
[2025-01-16 22:24] VITALS: TEMP 98.4; O2SAT 100
[2025-01-16 22:26] VITALS: BP 134/90
== END 2025-01-16 19:17 | disposition home or self-care (01) ==
LOC: ER 16:49
DX: R51.9 Headache, unspecified (principal); H53.9 Unspecified visual disturbance
CPT/HCPCS: 85025; 80048; 36415; 70450; 96375; 96374; 99284; J1885; J2765; J1200; J1100; J7030